=== PATIENT | female | born 1990 | race American Indian/Alaskan Native ===

== ENCOUNTER 2017-09-01 03:09 | Emergency (ER) | payer MEDICAID ==
[2017-09-01 03:31] VITALS: BP 113/64
[2017-09-01] MEDS ORDERED: MAGNESIUM SULFATE 2GM/50ML 2 GM/50 ML BAG IV ONE (03:33)
--- NOTE | 2017-09-01 05:54 | XRay Report ---
FINAL REPORT EXAM: XR CHEST ROUTINE 2V HISTORY: clinton TECHNIQUE: PA and lateral views of the chest were submitted. FINDINGS: The lungs are hyperinflated. There are no localized infiltrates or effusions. The heart size is normal. The lungs are not congested. The skeletal structures are well-maintained. IMPRESSION: Hyperinflation. No acute process in the chest.
[2017-09-01] MEDS ORDERED: XOPENEX IH ONE ×2 (06:30→06:33)
--- NOTE | 2017-09-01 06:34 | Emergency Department Report ---
ED Asthma HPI - General Chief Complaint: Dyspnea/Respdistress Stated Complaint: CLINTON Time Seen by Provider: 09/01/17 06:29 Source: patient Mode of arrival: Ambulatory Limitations: No Limitations - History of Present Illness Initial Comments: Patient is a 26-year-old female with a history of asthma who presents to ED complaining of an asthma attack that worsened earlier tonight. Patient states she's been using her inhaler and inhaled albuterol nebulizer as she is supposed to for asthma. Patient states she was home doing nothing when she got an asthma attack. Patient states she had some difficulty breathing and was wheezing. Patient states that the change in weather that caused her asthma to flareup. She denies fevers/chills/coughing/chest pain/dizziness/headache or any other problems. MD Complaint: "asthma attack", wheezing Severity: moderate Associated Symptoms: none Treatments Prior to Arrival: inhaled bronchodilator - Related Data Home Medications Medication Instructions Recorded Confirmed Last Taken Albuterol *Only Ed* [Proventil 2.5 mg IH Q4H PRN 07/17/15 08/05/15 08/04/15 0.5% NEBS] 2.5 MG Cetirizine HCl [ZyrTEC] 10 mg PO DAILY 07/17/15 08/05/15 08/04/15 10 MG Fluticasone/Salmeterol [Advair 1 puff IH BID 07/17/15 08/05/15 08/04/15 Diskus 250-50 mcg] 1 PUFF Montelukast [Singulair] 10 mg PO QPM 07/17/15 08/05/15 08/04/15 10 MG Ondansetron [Zofran ODT TAB] 4 mg PO Q8HR 07/17/15 08/05/15 08/04/15 4 MG Previous Rx's Medication Instructions Recorded Last Taken Type oxyCODONE /ACETAMINOPHEN [Percocet 1 tab PO Q6HR PRN #20 tablet 08/05/15 Unknown Rx 5/325] Ipratropium/Albuter (Nf) 2 puff IH QID #1 inha 09/01/17 Unknown Rx [Combivent Inhaler] Prednisone [predniSONE 10 mg 10 mg PO .TAPER #1 tab.ds.pk 09/01/17 Unknown Rx (6-Day Pack, 21 Tabs)] Allergies Allergy/AdvReac Type Severity Reaction Status Date / Time No Known Allergies Allergy Verified 02/25/15 23:47 ED Review of Systems ROS: Stated complaint: CLINTON Other details as noted in HPI Constitutional: denies: chills, fever Eyes: denies: eye pain, eye discharge, vision change ENT: denies: ear pain, throat pain Respiratory: denies: cough, shortness of breath, wheezing Cardiovascular: denies: chest pain, palpitations Endocrine: no symptoms reported Gastrointestinal: denies: abdominal pain, nausea, vomiting, diarrhea Genitourinary: denies: urgency, dysuria, discharge Musculoskeletal: denies: back pain, joint swelling, arthralgia Skin: denies: rash, lesions Neurological: denies: headache, weakness, paresthesias Psychiatric: denies: anxiety, depression Hematological/Lymphatic: denies: easy bleeding, easy bruising ED Past Medical Hx - Past Medical History Previous Medical History?: Yes Hx Asthma: Yes (intubated 3 times) Additional medical history: gastric ulcers as a child - Surgical History Past Surgical History?: No - Social History Smoking Status: Never Smoker Substance Use Type: Marijuana - Medications Home Medications: Home Medications Medication Instructions Recorded Confirmed Last Taken Type Albuterol *Only Ed* [Proventil 2.5 mg IH Q4H PRN 07/17/15 08/05/15 08/04/15 History 0.5% NEBS] 2.5 MG Cetirizine HCl [ZyrTEC] 10 mg PO DAILY 07/17/15 08/05/15 08/04/15 History 10 MG Fluticasone/Salmeterol [Advair 1 puff IH BID 07/17/15 08/05/15 08/04/15 History Diskus 250-50 mcg] 1 PUFF Montelukast [Singulair] 10 mg PO QPM 07/17/15 08/05/15 08/04/15 History 10 MG Ondansetron [Zofran ODT TAB] 4 mg PO Q8HR 07/17/15 08/05/15 08/04/15 History 4 MG oxyCODONE /ACETAMINOPHEN [Percocet 1 tab PO Q6HR PRN #20 tablet 08/05/15 Unknown Rx 5/325] Ipratropium/Albuter (Nf) 2 puff IH QID #1 inha 09/01/17 Unknown Rx [Combivent Inhaler] Prednisone [predniSONE 10 mg 10 mg PO .TAPER #1 tab.ds.pk 09/01/17 Unknown Rx (6-Day Pack, 21 Tabs)] ED Physical Exam - General Limitations: No Limitations General appearance: alert, in no apparent distress - Head Head exam: Present: atraumatic, normocephalic - Eye Eye exam: Present: normal appearance, PERRL, EOMI - ENT ENT exam: Present: mucous membranes moist - Neck Neck exam: Present: normal inspection - Respiratory Respiratory exam: Present: normal lung sounds bilaterally, wheezes (mild, lung bases bilat). Absent: respiratory distress, rales, rhonchi, stridor, chest wall tenderness, accessory muscle use, decreased breath sounds - Expanded Respiratory Exam Expanded Location: Wheezes: Lower, Left, Right - Cardiovascular Cardiovascular Exam: Present: regular rate, normal rhythm. Absent: systolic murmur, diastolic murmur, rubs, gallop - GI/Abdominal GI/Abdominal exam: Present: soft, normal bowel sounds. Absent: distended - Extremities Exam Extremities exam: Present: normal inspection, normal capillary refill. Absent: pedal edema, joint swelling - Back Exam Back exam: Present: normal inspection - Neurological Exam Neurological exam: Present: alert, oriented X3, CN II-XII intact - Psychiatric Psychiatric exam: Present: normal affect, normal mood - Skin Skin exam: Present: warm, dry, intact, normal color. Absent: rash ED Course Vital Signs 09/01/17 03:24 Temperature 98.2 F Pulse Rate 99 H Respiratory 20 Rate Blood Pressure 113/64 O2 Sat by Pulse 98 Oximetry ED Medical Decision Making - Radiology Data Radiology results: report reviewed, image reviewed FINAL REPORT EXAM: XR CHEST ROUTINE 2V HISTORY: clinton TECHNIQUE: PA and lateral views of the chest were submitted. FINDINGS: The lungs are hyperinflated. There are no localized infiltrates or effusions. The heart size is normal. The lungs are not congested. The skeletal structures are well-maintained. IMPRESSION: Hyperinflation. No acute process in the chest. Transcribed By: RB Dictated By: SANDI MURPHY MD Electronically Authenticated By: SANDI MURPHY MD Signed Date/Time: 09/01/17 0151 - Medical Decision Making 26-year-old female presents with asthma exacerbation. ED course: Patient received IV Solu-Medrol, mag sulfate, Xopenex respiratory breathing treatment in the ED Chest x-ray ordered. shows hyperinflation and no other acute process. Discussed findings with the patient. Discussed the patient will send her home on prednisone pack as well as ipraprotrium/albuterol Combination inhaler Vital signs are normal. Patient has no use of accessory muscles. Patient is satting 98% oxygenating on room air. She reports feeling much better onset of attack. After breathing treatment patient is resting and laying comfortably in the ED bed. She is in no respiratory distress She is neurologically intact Critical care attestation.: If time is entered above; I have spent that time in minutes in the direct care of this critically ill patient, excluding procedure time. ED Disposition Clinical Impression: Asthma attack Qualifiers: Asthma severity: moderate Asthma persistence: persistent Qualified Code(s): J45.41 - Moderate persistent asthma with (acute) exacerbation Asthma exacerbation Qualifiers: Asthma severity: moderate Asthma persistence: persistent Qualified Code(s): J45.41 - Moderate persistent asthma with (acute) exacerbation Disposition: DC-01 TO HOME OR SELFCARE Is pt being admited?: No Does the pt Need Aspirin: No Condition: Stable Instructions: Asthma (ED) Additional Instructions: Continue to use your inhalers as home as needed. You will be given prednisone in addition to prescriptions today. If she symptoms worsen or new symptoms arise please return to ED. Follow-up with your primary care physician or primary care physician as referred Prescriptions: Ipratropium/Albuter (Nf) [Combivent Inhaler] 2 puff IH QID #1 inha Prednisone [predniSONE 10 mg (6-Day Pack, 21 Tabs)] 10 mg PO .TAPER #1 tab.ds.pk Referrals: PRIMARY CAREMD [Primary Care Provider] - 3-5 Days JEANMARIE PALMER MD [Referring] - 3-5 Days [facility] [Outside] - 3-5 Days [facility] [Outside] - 3-5 Days [facility] [Outside] - 3-5 Days Forms: Accompanied Note, Work/School Release Form(ED) Time of Disposition: 06:58
== END 2017-09-01 07:09 | disposition home or self-care (01) ==
LOC: ED 03:09
DX: J45.901 Unspecified asthma with (acute) exacerbation (principal); F12.10 Cannabis abuse, uncomplicated
CPT/HCPCS: 36415; 71020; 84703; 93005; 93010; 96365; 99284; J3475

== ENCOUNTER 2018-02-13 08:15 | Emergency (ER) | payer MEDICAID ==
--- NOTE | 2018-02-13 09:15 | XRay Report ---
ROUTINE CHEST, TWO VIEWS: HISTORY: Wheezing, cough. The lungs are hyperinflated but clear. No pleural effusion or pneumothorax. Normal heart and mediastinal structures. Normal bony thorax. No change since 09/01/17. IMPRESSION: Hyperinflation.
[2018-02-13] MEDS ORDERED: MAGNESIUM SULFATE 2GM/50ML 2 GM/50 ML BAG IV ONE (09:31)
[2018-02-13] MEDS ORDERED: NACL 0.9% 1000 ML 1,000 ML IV ONE (09:32)
[2018-02-13] MEDS ORDERED: ZITHROMAX PO ONE (09:33)
[2018-02-13] MEDS ORDERED: ATROVENT IH ONE (09:36)
[2018-02-13] MEDS ORDERED: PROVENTIL IH ONE (09:36)
--- NOTE | 2018-02-13 09:36 | Emergency Department Report ---
Blank Doc - Documentation Documentation: 27-year-old patient with a history of asthma, reports history of 2 intubations, presents with shortness of breath and wheezing. Patient reports that she has been having coughing chills feeling hot and wheezing. Patient reports sometimes she requires admission for asthma exacerbation. Patient requesting IV Solu-Medrol and magnesium which works for her asthma. Chest x-ray review. Signed Medrol magnesium and DuoNeb's order for treatment. Patient transferred to Main ER.
[2018-02-13 09:57] LABS: Basophils % (Auto) 0.3 % (0.0-1.8); Eosinophils # (Auto) 0.3 K/mm3 (0.0-0.4); Eosinophils % (Auto) 2.5 % (0.0-4.3); Hemoglobin 13.3 gm/dl (10.1-14.3); Lymphocytes # (Auto) 0.9 K/mm3 (1.2-5.4); Lymphocytes % (Auto) 6.8 % (13.4-35.0); Mean Corpuscular HGB Conc 33 % (30-34); Mean Corpuscular Hemoglobin 32 pg (28-32); Mean Corpuscular Volume 95 fl (79-97); Monocytes # (Auto) 0.8 K/mm3 (0.0-0.8); Monocytes % (Auto) 5.7 % (0.0-7.3); Platelet Count 293 K/mm3 (140-440); Red Blood Count 4.21 M/mm3 (3.65-5.03); Red Cell Distribution Width 14.1 % (13.2-15.2)
[2018-02-13 10:11] LABS: BUN/Creatinine Ratio 12; Blood Urea Nitrogen 7 mg/dL (7-17); Calcium 9.2 mg/dL (8.4-10.2); Hemolysis Index 11
--- NOTE | 2018-02-13 11:03 | Emergency Department Report ---
ED Asthma HPI - General Chief Complaint: Adult Asthma Stated Complaint: ASTHMA Time Seen by Provider: 02/13/18 09:30 Source: patient Mode of arrival: Ambulatory Limitations: No Limitations - Related Data Home Medications Medication Instructions Recorded Confirmed Last Taken Cetirizine HCl [ZyrTEC] 10 mg PO DAILY 07/17/15 08/05/15 08/04/15 10 MG Ondansetron [Zofran ODT TAB] 4 mg PO Q8HR 07/17/15 08/05/15 08/04/15 4 MG Previous Rx's Medication Instructions Recorded Last Taken Type oxyCODONE /ACETAMINOPHEN [Percocet 1 tab PO Q6HR PRN #20 tablet 08/05/15 Unknown Rx 5/325] Prednisone [predniSONE 10 mg 10 mg PO .TAPER #1 tab.ds.pk 09/01/17 Unknown Rx (6-Day Pack, 21 Tabs)] Albuterol *Only Ed* [Proventil 2.5 mg IH Q4H PRN #60 nebu 02/13/18 Unknown Rx 0.5% NEBS] Albuterol Sulfate [Ventolin HFA] 2 puff IH Q4H PRN #1 hfa.aer.ad 02/13/18 Unknown Rx Azithromycin [Zithromax Z-JONATAN] 250 mg PO DAILY #6 tablet 02/13/18 Unknown Rx Fluticasone/Salmeterol [Advair 1 puff IH BID #1 blst.w.dev 02/13/18 Unknown Rx Diskus 250-50 mcg] Ipratropium/Albuter (Nf) 2 puff IH QID #60 inha 02/13/18 Unknown Rx [Combivent Inhaler] Montelukast [Singulair] 10 mg PO QPM #30 tablet 02/13/18 Unknown Rx predniSONE [Deltasone] 60 mg PO QDAY #20 tab 02/13/18 Unknown Rx traMADol [Ultram] 50 mg PO Q6HR PRN #10 tablet 02/13/18 Unknown Rx Allergies Allergy/AdvReac Type Severity Reaction Status Date / Time No Known Allergies Allergy Verified 02/13/18 08:19 ED Review of Systems ROS: Stated complaint: ASTHMA Other details as noted in HPI ED Past Medical Hx - Past Medical History Hx Asthma: Yes Additional medical history: gastric ulcers as a child - Social History Smoking Status: Never Smoker Substance Use Type: None - Medications Home Medications: Home Medications Medication Instructions Recorded Confirmed Last Taken Type Cetirizine HCl [ZyrTEC] 10 mg PO DAILY 07/17/15 08/05/15 08/04/15 History 10 MG Ondansetron [Zofran ODT TAB] 4 mg PO Q8HR 07/17/15 08/05/15 08/04/15 History 4 MG oxyCODONE /ACETAMINOPHEN [Percocet 1 tab PO Q6HR PRN #20 tablet 08/05/15 Unknown Rx 5/325] Prednisone [predniSONE 10 mg 10 mg PO .TAPER #1 tab.ds.pk 09/01/17 Unknown Rx (6-Day Pack, 21 Tabs)] Albuterol *Only Ed* [Proventil 2.5 mg IH Q4H PRN #60 nebu 02/13/18 Unknown Rx 0.5% NEBS] Albuterol Sulfate [Ventolin HFA] 2 puff IH Q4H PRN #1 hfa.aer.ad 02/13/18 Unknown Rx Azithromycin [Zithromax Z-JONATAN] 250 mg PO DAILY #6 tablet 02/13/18 Unknown Rx Fluticasone/Salmeterol [Advair 1 puff IH BID #1 blst.w.dev 02/13/18 Unknown Rx Diskus 250-50 mcg] Ipratropium/Albuter (Nf) 2 puff IH QID #60 inha 02/13/18 Unknown Rx [Combivent Inhaler] Montelukast [Singulair] 10 mg PO QPM #30 tablet 02/13/18 Unknown Rx predniSONE [Deltasone] 60 mg PO QDAY #20 tab 02/13/18 Unknown Rx traMADol [Ultram] 50 mg PO Q6HR PRN #10 tablet 02/13/18 Unknown Rx ED Physical Exam - General Limitations: No Limitations ED Course Vital Signs 02/13/18 02/13/18 02/13/18 08:19 09:32 10:00 Temperature 99.3 F Pulse Rate 94 H Respiratory 20 Rate Blood Pressure 122/62 115/71 O2 Sat by Pulse 97 95 94 Oximetry ED Medical Decision Making - Lab Data Result diagrams: 02/13/18 09:39 02/13/18 09:39 Critical care attestation.: If time is entered above; I have spent that time in minutes in the direct care of this critically ill patient, excluding procedure time. ED Disposition Clinical Impression: Acute sinusitis Exacerbation of asthma Qualifiers: Asthma severity: moderate Asthma persistence: persistent Qualified Code(s): J45.41 - Moderate persistent asthma with (acute) exacerbation Disposition: OP ADMIT IP TO THIS HOSP Is pt being admited?: No Does the pt Need Aspirin: No Condition: Stable Instructions: Asthma (ED), Sinusitis (ED) Additional Instructions: Return any acute change or worsening. Close follow-up is recommended with her primary care physician and expansion joint finisher. Prescriptions: Albuterol *Only Ed* [Proventil 0.5% NEBS] 2.5 mg IH Q4H PRN #60 nebu PRN Reason: Wheezing Albuterol Sulfate [Ventolin HFA] 2 puff IH Q4H PRN #1 hfa.aer.ad PRN Reason: Shortness Of Breath Azithromycin [Zithromax Z-JONATAN] 250 mg PO DAILY #6 tablet Fluticasone/Salmeterol [Advair Diskus 250-50 mcg] 1 puff IH BID #1 blst.w.dev Ipratropium/Albuter (Nf) [Combivent Inhaler] 2 puff IH QID #60 inha Montelukast [Singulair] 10 mg PO QPM #30 tablet predniSONE [Deltasone] 60 mg PO QDAY #20 tab traMADol [Ultram] 50 mg PO Q6HR PRN #10 tablet PRN Reason: Pain Referrals: PRIMARY CARE, [Primary Care Provider] - 3-5 Days Time of Disposition: 11:04
[2018-02-13 11:49] VITALS: BP 119/68
== END 2018-02-13 11:49 | disposition admitted as inpatient to this hospital (09) ==
LOC: ED 08:15
DX: J01.90 Acute sinusitis, unspecified (principal); J45.901 Unspecified asthma with (acute) exacerbation
CPT/HCPCS: 36415; 71046; 80048; 85025; 94640; 96365; 96375; 99284; J2930; J3475; J7030

== ENCOUNTER 2018-07-31 19:16 | Observation (INO) | payer MEDICAID ==
[2018-07-31] MEDS ORDERED: LACTATED RINGERS 500 ML IV ONE (20:04)
[2018-07-31 20:36] LABS: Bilirubin,Urine NEG (Negative); Blood,Urine NEG (Negative); Color,Urine Amber (Yellow); Mucus,Urine 3+ /HPF
[2018-07-31] MEDS ORDERED: ZOFRAN IM ONE (20:36)
[2018-07-31] MEDS ORDERED: ZOFRAN IV ONE (20:56)
[2018-07-31] MEDS ORDERED: MIRACLE MIXTURE PO ONE (21:00)
[2018-07-31 21:39] LABS: Hematocrit 33.6 % (30.3-42.9); Hemoglobin 11.1 gm/dl (10.1-14.3); Mean Corpuscular HGB Conc 33 % (30-34); Mean Corpuscular Hemoglobin 32 pg (28-32); Mean Corpuscular Volume 98 fl (79-97); Platelet Count 275 K/mm3 (140-440); Red Blood Count 3.44 M/mm3 (3.65-5.03); Red Cell Distribution Width 13.9 % (13.2-15.2)
[2018-07-31 21:45] LABS: Amphetamine Screen,Urine PRESUMPTIVE NEGATIVE; Benzodiazepines Screen,Urine PRESUMPTIVE NEGATIVE; Cocaine Screen,Urine PRESUMPTIVE NEGATIVE; Methadone Screen,Urine PRESUMPTIVE NEGATIVE; Opiate Screen,Urine PRESUMPTIVE NEGATIVE
[2018-07-31 21:55] LABS: Alanine Aminotransferase 17 units/L (7-56); Albumin 3.4 g/dL (3.9-5); BUN/Creatinine Ratio 23; Blood Urea Nitrogen 9 mg/dL (7-17); Calcium 8.6 mg/dL (8.4-10.2); Hemolysis Index 34; Lipase 17 units/L (13-60)
[2018-07-31 22:02] LABS: Cannabinoid Screen,Urine PRESUMPTIVE POSITIVE
[2018-07-31] MEDS ORDERED: TYLENOL PO PRN (22:38)
[2018-07-31] MEDS ORDERED: AMBIEN PO PRN (22:38)
[2018-07-31] MEDS ORDERED: BENADRYL PO PRN (22:38)
[2018-07-31] MEDS ORDERED: COLACE PO PRN (22:38)
[2018-07-31] MEDS ORDERED: DEEP SEA NS PRN (22:38)
[2018-07-31] MEDS: MORPHINE IV PRN (23:16)
[2018-07-31] MEDS: LACTATED RINGERS 1,000 ML IV SCH (23:19)
[2018-08-01] MEDS: LACTATED RINGERS 1,000 ML IV SCH ×2 (02:58→14:16)
[2018-08-01] MEDS: ZOFRAN IV PRN ×2 (02:58→09:26)
[2018-08-01] MEDS: MORPHINE IV PRN ×3 (04:46→14:17)
[2018-08-01] MEDS ORDERED: MIRACLE MIXTURE PO SCH (08:00)
--- NOTE | 2018-08-01 09:47 | Ultrasound Report ---
ULTRASOUND ABDOMEN LIMITED: TECHNIQUE: Transabdominal ultrasound with color Doppler interrogation. HISTORY: right upper quadrant abdominal pain. COMPARISON: none. FINDINGS: LIVER: Normal. BILIARY SYSTEM: Normal. PANCREAS: Normal. RIGHT KIDNEY: The right kidney is normal size and contour. There is increased renal cortical echotexture consistent with nonspecific renal parenchymal disease. No focal renal lesion or hydronephrosis. PROXIMAL AORTA: Normal. ASCITES: None. IMPRESSION: Nonspecific renal parenchymal disease as described. Otherwise, unremarkable exam of the right upper quadrant.
[2018-08-01] MEDS ORDERED: PRENATAL VITAMIN PO SCH (10:00)
--- NOTE | 2018-08-01 12:49 | History and Physical Report ---
History of Present Illness Date of examination: 08/01/18 Date of admission: 07/31/18 22:52 Chief complaint: abdominal pain, nausea, vomiting 21 weeks History of present illness: This is a 27 yo G P at 21 weeks EDC here for long hx of abdominal pain/ upper. She reports nausea and vomiting 2x yesterday. She has been worked up in the past not in . She reports vomiting x2 and this episode of pain in this started 3 days. Past History Past Medical History: asthma Past Surgical History: no surgical history Family/Genetic History: diabetes, cancer Social history: single, smoking, other (marijuana). denies: alcohol abuse - Obstetrical History Expected Date of Delivery: 12/07/18 Actual Gestation: 21 Week(s) 5 Day(s) : 3 Para: 1 Hx # Term Pregnancies: 0 Number of Pregnancies: 1 Spontaneous Abortions: 0 Induced : 1 Number of Living Children: 1 Medications and Allergies Allergies Allergy/AdvReac Type Severity Reaction Status Date / Time No Known Allergies Allergy Verified 02/13/18 08:19 Home Medications Medication Instructions Recorded Confirmed Last Taken Type Doxylamine Succinate/Vit B6 1 tab PO PRN 07/31/18 07/31/18 2 Days Ago History [Diclegis Dr 10-10 mg Tablet] ~07/29/18 Promethazine 1 tab PO PRN 07/31/18 07/31/18 2 Days Ago History ~07/29/18 Active Meds: Active Medications Acetaminophen (Tylenol) 650 mg PO Q4H PRN PRN Reason: Pain MILD(1-3)/Fever >100.5/JAQUEZ Diphenhydramine HCl (Benadryl) 25 mg PO Q6H PRN PRN Reason: Itching Docusate Sodium (Colace) 100 mg PO Q12H PRN PRN Reason: Constipation Lactated Ringer's (Lactated Ringers) 1,000 mls @ 125 mls/hr IV DIRECT ELIZ Last Admin: 08/01/18 02:58 Dose: 125 mls/hr Lidocaine HCl (Miracle Mixture) 15 ml PO TID ELIZ Last Admin: 08/01/18 11:13 Dose: 15 ml Morphine Sulfate (Morphine) 2 mg IV Q4H PRN PRN Reason: Pain, Moderate (4-6) Last Admin: 08/01/18 09:26 Dose: 2 mg Multivitamins/Iron/Calcium ( Vitamin) 1 each PO QDAY ELIZ Ondansetron HCl (Zofran) 4 mg IV Q6H PRN PRN Reason: Nausea And Vomiting Last Admin: 08/01/18 09:26 Dose: 4 mg Sodium Chloride (Deep Sea) 2 spray NS Q4H PRN PRN Reason: Congestion Zolpidem Tartrate (Ambien) 10 mg PO QHS PRN PRN Reason: Sleep Last Admin: 07/31/18 23:19 Dose: 10 mg Review of Systems All systems: negative Gastrointestinal: abdominal pain, nausea, vomiting - Vital Signs Vital signs: Vital Signs Temp Pulse Resp BP 98.1 F 83 19 104/65 07/31/18 19:44 07/31/18 19:44 07/31/18 19:44 07/31/18 19:44 Temp Pulse Resp BP Pulse Ox 97.7 F 50 L 16 98/51 99 08/01/18 11:35 08/01/18 11:35 08/01/18 11:35 08/01/18 11:35 08/01/18 04:50 - Physical Exam Breasts: Positive: normal Cardiovascular: Regular rate, Normal S1 Lungs: Positive: Clear to auscultation, Normal air movement Abdomen: Positive: normal appearance, soft, normal bowel sounds. Negative: distention, tenderness, guarding Genitourinary (Female): Positive: normal external genitalia, normal perenium Vulva: both: normal Uterus: Positive: normal size, normal contour Anus/Rectum: Positive: normal perianal skin Extremities: Positive: normal Deep Tendon Reflex Grade: Normal +2 - Obstetrical FHR: auscultation normal Results Result Diagrams: 07/31/18 20:55 07/31/18 20:55 Abnormal lab results 07/31/18 07/31/18 Range/Units 20:55 20:55 WBC 15.5 H (4.5-11.0) K/mm3 RBC 3.44 L (3.65-5.03) M/mm3 MCV 98 H (79-97) fl Carbon Dioxide 20 L (22-30) mmol/L Creatinine 0.4 L (0.7-1.2) mg/dL Albumin 3.4 L (3.9-5) g/dL All other labs normal. Assessment and Plan A/P IUP 21 weeks abdominal pain nausea and vomiting GI consult US neg await GI consult to continue care and treatment
--- NOTE | 2018-08-01 15:07 | Consultation ---
History of Present Illness - Reason for Consult Consult date: 08/01/18 Abd pain, N/V Requesting physician: ESTER UPTON - History of Present Illness Miss Qureshi is a 27-year-old woman who is 21 weeks and was admitted for abdominal pain. Patient relates a history of problems with epigastric sharp stabbing cramping pain for over 3 years associated with nausea vomiting. These had been intermittent with no clear precipitants. She states she was evaluated at [facility] in 2014 and told she may have had a delayed gastric emptying. However, no further diagnosis was given and there was no specific treatment that helped her with the symptoms. Since her , patient states that symptoms have been occurring on a daily basis and are worse in the morning. There is no clear association with by mouth intake. She has lost about 3 pounds during the course of her . She has nausea and vomiting along with the pain. Her bowel movements are regular on a daily to twice a day basis without any change though occasionally she has seen mucus. There's been no evidence of GI bleeding. There's been no fevers chills or sweats. She denies abdominal bloating or swelling. Patient smokes marijuana up to 1-3 times a day. She states she tried stopping it without any relief. She also states that she has been tried on Pepcid without any relief. Promethazine has been ineffective. Past History Past Medical History: other (Asthma, requiring intubation x 2 in the past) Past Surgical History: Other (Per OB note) Social history: single, smoking (Marijuana) Family history: no significant family history Medications and Allergies Allergies Allergy/AdvReac Type Severity Reaction Status Date / Time No Known Allergies Allergy Verified 02/13/18 08:19 Home Medications Medication Instructions Recorded Confirmed Last Taken Type Doxylamine Succinate/Vit B6 1 tab PO PRN 07/31/18 07/31/18 2 Days Ago History [Celestinos Dr 10-10 mg Tablet] ~07/29/18 Promethazine 1 tab PO PRN 07/31/18 07/31/18 2 Days Ago History ~07/29/18 Active Meds: Active Medications Acetaminophen (Tylenol) 650 mg PO Q4H PRN PRN Reason: Pain MILD(1-3)/Fever >100.5/JAQUEZ Diphenhydramine HCl (Benadryl) 25 mg PO Q6H PRN PRN Reason: Itching Docusate Sodium (Colace) 100 mg PO Q12H PRN PRN Reason: Constipation Lactated Ringer's (Lactated Ringers) 1,000 mls @ 125 mls/hr IV DIRECT ELIZ Last Admin: 08/01/18 14:16 Dose: 125 mls/hr Lidocaine HCl (Miracle Mixture) 15 ml PO TID [facility] Last Admin: 08/01/18 11:13 Dose: 15 ml Morphine Sulfate (Morphine) 2 mg IV Q4H PRN PRN Reason: Pain, Moderate (4-6) Last Admin: 08/01/18 14:17 Dose: 2 mg Multivitamins/Iron/Calcium ( Vitamin) 1 each PO QDAY [facility] Ondansetron HCl (Zofran) 4 mg IV Q6H PRN PRN Reason: Nausea And Vomiting Last Admin: 08/01/18 09:26 Dose: 4 mg Sodium Chloride (Deep Sea) 2 spray NS Q4H PRN PRN Reason: Congestion Zolpidem Tartrate (Ambien) 10 mg PO QHS PRN PRN Reason: Sleep Last Admin: 07/31/18 23:19 Dose: 10 mg Review of Systems All systems: negative (as noted in HPI) Exam - Constitutional Vitals: Temp Pulse Resp BP Pulse Ox 97.7 F 50 L 16 98/51 99 08/01/18 11:35 08/01/18 11:35 08/01/18 11:35 08/01/18 11:35 08/01/18 04:50 General appearance: Present: no acute distress, other (tattooed) - EENT Eyes: Present: PERRL, EOM intact ENT: hearing intact - Respiratory Respiratory effort: normal Respiratory: bilateral: CTA - Cardiovascular Rhythm: regular Heart Sounds: Present: S1 & S2 - Abdominal General gastrointestinal: Present: soft, non-tender, normal bowel sounds, other (Fullness in suprapubic region c/w gravid state) - Rectal Rectal Exam: deferred Results - Labs CBC & Chem 7: 07/31/18 20:55 07/31/18 20:55 Labs: Abnormal lab results 07/31/18 07/31/18 Range/Units 20:55 20:55 WBC 15.5 H (4.5-11.0) K/mm3 RBC 3.44 L (3.65-5.03) M/mm3 MCV 98 H (79-97) fl Carbon Dioxide 20 L (22-30) mmol/L Creatinine 0.4 L (0.7-1.2) mg/dL Albumin 3.4 L (3.9-5) g/dL - Imaging and Cardiology US - abdomen: report reviewed (No gallstones) Assessment and Plan 1. Epigastric pain, N/V - etiology unclear. Symptoms long-standing, and, according to the patient, worse during . These may well represent biliary colic, or a functional disturbance. Given the negative ultrasound, HIDA scan with CCK would be the next appropriate step, but is contraindicated in the setting of due to the need for radionuclide usage. Peptic ulcer disease is a consideration but less likely, especially given that Pepcid did not help. I would treat her at present for a functional disturbance, possibly using Ativan. Once the is completed, further evaluation can then be pursued including HIDA scan and possible EGD. Also, I would consider use of narrow modulators such as tricyclic anti-depressed at that point in time. - Would recommend low dose Ativan at 0.5 mg by mouth twice a day if okay by OB. - Consider ongoing empiric acid suppression. - HIDA scan with CCK upon completion of the . - If warranted, may need to provide parenteral nutrition until completion of . Please call if I can be of further assistance.
--- NOTE | 2018-08-01 17:27 | Event Note ---
Date: 08/01/18 patient feels better slightly. Spoke with Dr. Farley and he recommneded nortrytiline and or ativan. I would not recommnede as this medication is a cat D. I spok with patient and plan is to set up home health with possible parenteral nutrition vs IV meds of zofran. she will be sent home with few tabs of norco for pain and zofran.
--- NOTE | 2018-08-01 17:31 | Discharge Summary ---
Providers - Providers Date of Admission: 07/31/18 22:52 Date of discharge: 08/01/18 Attending physician: JANA KNAPP 07/31/18 22:38 Consult to Dietitian/Nutrition [CONS] Routine Physician Instructions: Reason For Exam: Reason for Consult: nausea, vomiting, pregn 08/01/18 09:07 Consult to Physician [CONS] Urgent Comment: Consulting Provider: YULIA HOLLY Physician Instructions: Reason For Exam: IUp 21 weeks abdominal pain Primary care physician: JANA KNAPP Hospitalization Reason for admission: other (abdominal pain and nausea and vomiting ) Hospital course: patient was givne IV and pain meds consistent with morphine. She had US neg. She was seen by GI taran and GI dx with functional issue. GI recommneded f/u. parenental nutrition to be arranged on outpatient with home health. Discharged home with zofran and norco Condition at discharge: Good Disposition: DC-[id number] TO HOME OR SELFCARE Plan - Discharge Medications Prescriptions: HYDROcodone/APAP 5-325 [[place] 5/325] 1 each PO Q6HR PRN #5 tablet PRN Reason: Pain Ondansetron [Zofran ODT TAB] 8 mg PO Q12HR #20 tab.rapdis - Provider Discharge Summary Additional instructions: [] Smoking cessation referral if applicable(refer to patient education folder for contact #) [] Refer to [facility] Booklet Call your doctor immediately for: * Fever > 100.5 * Heavy vaginal bleeding ( >1 pad per hour) * Severe persistent headache * Shortness of breath * Reddened, hot, painful area to leg or breast * Drainage or odor from incision. * Keep incision clean and dry at all times and follow doctor's instructions regarding bathing/showering - Follow up plan Follow up: JANA KNAPP MD [Primary Care Provider] - 7 Days
[2018-08-01 17:55] VITALS: BP 101/63
== END 2018-08-01 19:55 | disposition home or self-care (01) ==
LOC: TRG 19:16 → LD 22:52
PROVIDERS: ADMIT Obstetrics & Gynecology; ATTEND Obstetrics & Gynecology
DX: O21.2 Late vomiting of pregnancy (principal); O26.892 Other specified pregnancy related conditions, second trimester; R10.9 Unspecified abdominal pain; Z3A.21 21 weeks gestation of pregnancy
CPT/HCPCS: 36415; 76705; 80053; 80307; 81001; 82150; 83690; 85027; 96360; 96374; G0378; J2270; J2405; J7120; 59025

== ENCOUNTER 2018-10-19 20:46 | Inpatient (IN) | payer MEDICAID ==
[2018-10-19] MEDS ORDERED: LACTATED RINGERS 1,000 ML IV ONE ×2 (22:01→22:46)
[2018-10-19] MEDS ORDERED: TYLENOL PO ONE (22:02)
[2018-10-19 22:54] LABS: Hematocrit 27.8 % (30.3-42.9); Hemoglobin 9.6 gm/dl (10.1-14.3); Mean Corpuscular HGB Conc 35 % (30-34); Mean Corpuscular Volume 88 fl (79-97); Platelet Count 229 K/mm3 (140-440); Red Blood Count 3.16 M/mm3 (3.65-5.03); Red Cell Distribution Width 14.1 % (13.2-15.2)
[2018-10-19 23:00] LABS: Bacteria,Urine 1+ /HPF (Negative); Bilirubin,Urine NEG (Negative); Blood,Urine NEG (Negative); Color,Urine Amber (Yellow); Mucus,Urine 1+ /HPF
[2018-10-19] MEDS ORDERED: DUONEB *Not for PRN Use IH ONE (23:56)
[2018-10-20 01:05] LABS: Alanine Aminotransferase 54 units/L (7-56); Albumin 3.2 g/dL (3.9-5); BUN/Creatinine Ratio 10; Blood Urea Nitrogen 6 mg/dL (7-17); Calcium 8.2 mg/dL (8.4-10.2); Hemolysis Index 8
[2018-10-20 03:15] LABS: Band Neutrophils # (Manual) 0.6 K/mm3; Basophils % (Manual) 0 % (0.0-1.8); Eosinophils % (Manual) 0 % (0.0-4.3); Total Cells Counted 100
[2018-10-20 03:16] LABS: Anisocytosis 1+
[2018-10-20] MEDS ORDERED: KCL 30 MEQ in NACL 0.9% 1000 ML 1,000 ML IV SCH (03:45)
[2018-10-20] MEDS: DUONEB *Not for PRN Use IH ONE ×2 (04:38→06:06)
[2018-10-20] MEDS ORDERED: XOPENEX IH PRN ×2 (04:45→04:47)
[2018-10-20] MEDS: XOPENEX IH SCH ×4 (05:07→21:19)
[2018-10-20] MEDS ORDERED: TYLENOL PO ONE (05:28)
[2018-10-20] MEDS ORDERED: TYLENOL PO PRN (09:34)
--- NOTE | 2018-10-20 09:40 | History and Physical Report ---
History of Present Illness Date of examination: 10/20/18 Date of admission: 10/20/18 04:27 Chief complaint: cough with fever History of present illness: 28y/o @ 33+0 weeks presents to triage with complaints of persistent cough with productive sputum. The patient also reports having an elevated temperature at home. The patient's course is significant for history of asthma and a prior intubation in the past. The patient was recently treated for a dental abscess which she is currently taking by mouth clindamycin. The patient states that she is experiencing fevers and chills. A rapid influenza testing was performed in triage was negative. Breathing treatment was administered in triage without significant improvement in symptoms. Past History Past Medical History: asthma, other (dental abscess) - Obstetrical History : 3 Medications and Allergies Allergies Allergy/AdvReac Type Severity Reaction Status Date / Time No Known Allergies Allergy Verified 02/13/18 08:19 Home Medications Medication Instructions Recorded Confirmed Last Taken Type Doxylamine Succinate/Vit B6 1 tab PO PRN 07/31/18 07/31/18 2 Days Ago History [Diclegis Dr 10-10 mg Tablet] ~07/29/18 Promethazine 1 tab PO PRN 07/31/18 07/31/18 2 Days Ago History ~07/29/18 HYDROcodone/APAP 5-325 [[place] 1 each PO Q6HR PRN #5 tablet 08/01/18 Unknown Rx 5/325] Ondansetron [Zofran ODT TAB] 8 mg PO Q12HR #20 tab.rapdis 08/01/18 Unknown Rx Ondansetron (Nf) [Zofran TAB] 8 mg PO Q8HR PRN #30 tablet 10/07/18 Unknown Rx Acetaminophen/Codeine [Tylenol 1 tab PO Q6H PRN #12 tab 10/16/18 Unknown Rx /Codeine # 3 tab] RX: Clindamycin [Clindamycin CAP] 300 mg PO Q8H 10 Days #30 cap 10/16/18 Unknown Rx Active Meds: Active Medications Acetaminophen (Tylenol) 650 mg PO Q4H PRN PRN Reason: Pain MILD(1-3)/Fever >100.5/JAQUEZ Acetaminophen/Hydrocodone Bitart ([place] 5/325) 2 each PO Q6H PRN PRN Reason: Pain, Moderate (4-6) Clindamycin HCl (Cleocin) 300 mg PO TID ELIZ Docusate Sodium (Colace) 100 mg PO Q12H PRN PRN Reason: Constipation Potassium Chloride 30 meq/ (Sodium Chloride) 1,015 mls @ 75 mls/hr IV DIRECT ELIZ Last Admin: 10/20/18 05:48 Dose: 75 mls/hr Documented by: Dextrose/Lactated Ringer's (D5lr) 1,000 mls @ 125 mls/hr IV DIRECT ELIZ Levalbuterol HCl (Xopenex) 0.63 mg IH Q8HRT [facility] Last Admin: 10/20/18 05:07 Dose: 0.63 mg Documented by: Multivitamins/Iron/Calcium ( Vitamin) 1 each PO QDAY [facility] Review of Systems All systems: negative Respiratory: cough, cough with sputum, shortness of breath, congestion, wheezing - Vital Signs Vital signs: Vital Signs Pulse BP 127 H 102/52 10/19/18 22:16 10/19/18 22:16 Temp Pulse Resp BP Pulse Ox 97.6 F 122 H 20 100/50 97 10/20/18 08:47 10/20/18 09:36 10/20/18 09:05 10/20/18 08:11 10/20/18 09:36 - Physical Exam Breasts: Positive: deferred Cardiovascular: Regular rate Lungs: Positive: Other (wheezing) Abdomen: Positive: normal appearance Results Result Diagrams: 10/19/18 22:15 10/19/18 22:15 Abnormal lab results 10/19/18 10/19/18 10/19/18 Range/Units 22:15 22:15 22:15 RBC 3.16 L (3.65-5.03) M/mm3 Hgb 9.6 L (10.1-14.3) gm/dl Hct 27.8 L (30.3-42.9) % MCHC 35 H (30-34) % Seg Neuts % (Manual) 86.0 H (40.0-70.0) % Lymphocytes % (Manual) 3.0 L (13.4-35.0) % Nucleated RBC % 2.0 H (0.0-0.9) % Seg Neutrophils # Man 9.5 H (1.8-7.7) K/mm3 Lymphocytes # (Manual) 0.3 L (1.2-5.4) K/mm3 Sodium 132 L (137-145) mmol/L Potassium 3.1 L (3.6-5.0) mmol/L Chloride 96.9 L (98-107) mmol/L Carbon Dioxide 20 L (22-30) mmol/L BUN 6 L (7-17) mg/dL Creatinine 0.6 L (0.7-1.2) mg/dL Calcium 8.2 L (8.4-10.2) mg/dL AST 46 H (5-40) units/L Alkaline Phosphatase 159 H (35-129) units/L Total Protein 5.8 L (6.3-8.2) g/dL Albumin 3.2 L (3.9-5) g/dL U Epithel Cells (Auto) 16.0 H (0-13.0) /HPF All other labs normal. Assessment and Plan - Patient Problems (1) Acute asthma exacerbation Current Visit: Yes Status: Acute Plan to address problem: Patient will be admitted for management of her asthma IV potassium replacement will also be administered for hypokalemia Hospitalist will be consulted for management of the patient's asthma exacerbation (2) Tooth abscess Current Visit: No Status: Acute
[2018-10-20] MEDS ORDERED: COLACE PO PRN (10:00)
[2018-10-20] MEDS: CLEOCIN PO SCH ×2 (10:30→18:07)
[2018-10-20] MEDS: PRENATAL VITAMIN PO SCH (10:31)
[2018-10-20] MEDS: NORCO 5/325 PO PRN ×2 (10:31→18:06)
[2018-10-20] MEDS ORDERED: MAGNESIUM SULFATE 1 GM in NACL 0.9% 50 ML IV ONE (11:25)
[2018-10-20] MEDS ORDERED: SOLU-Medrol IV ONE (11:26)
--- NOTE | 2018-10-20 11:28 | Consultation ---
History of Present Illness - Reason for Consult Consult date: 10/20/18 Requesting physician: JACQUES LERMA - History of Present Illness 28 YO Female with Mild Intermittent Asthma at [address]estation[address] by Dr[address] Lerma for evaluation of Asthma. Pt states that she has experienced fever, chills over the past 2 days. Pt seen and evaluated in her room and found to have Asthma Exacerbation. Pt treated with IV steroid therapy, nebulizer therapy, as well as magnesium sulfate. No reports of CP, Palpitations, NVD, Unilateral leg swelling, Calf Pain, Syncope, skin rash, or recent ill contacts. Past History Past Medical History: other (Asthma) Past Surgical History: No surgical history (reviewed) Social history: single. denies: smoking, alcohol abuse, prescription drug abuse Family history: no significant family history (reviewed) Medications and Allergies Allergies Allergy/AdvReac Type Severity Reaction Status Date / Time No Known Allergies Allergy Verified 02/13/18 08:19 Home Medications Medication Instructions Recorded Confirmed Last Taken Type Doxylamine Succinate/Vit B6 1 tab PO PRN 07/31/18 07/31/18 2 Days Ago History [Diclegis Dr 10-10 mg Tablet] ~07/29/18 Promethazine 1 tab PO PRN 07/31/18 07/31/18 2 Days Ago History ~07/29/18 HYDROcodone/APAP 5-325 [[place] 1 each PO Q6HR PRN #5 tablet 08/01/18 Unknown Rx 5/325] Ondansetron [Zofran ODT TAB] 8 mg PO Q12HR #20 tab.rapdis 08/01/18 Unknown Rx Ondansetron (Nf) [Zofran TAB] 8 mg PO Q8HR PRN #30 tablet 10/07/18 Unknown Rx Acetaminophen/Codeine [Tylenol 1 tab PO Q6H PRN #12 tab 10/16/18 Unknown Rx /Codeine # 3 tab] Clindamycin [Clindamycin CAP] 300 mg PO Q8H 10 Days #30 cap 10/16/18 Unknown Rx Active Meds: Active Medications Acetaminophen (Tylenol) 650 mg PO Q4H PRN PRN Reason: Pain MILD(1-3)/Fever >100.5/JAQUEZ Acetaminophen/Hydrocodone Bitart ([place] 5/325) 2 each PO Q6H PRN PRN Reason: Pain, Moderate (4-6) Last Admin: 10/20/18 10:31 Dose: 2 each Documented by: Clindamycin HCl (Cleocin) 300 mg PO TID [facility] Last Admin: 10/20/18 10:30 Dose: 300 mg Documented by: Docusate Sodium (Colace) 100 mg PO Q12H PRN PRN Reason: Constipation Potassium Chloride 30 meq/ (Sodium Chloride) 1,015 mls @ 75 mls/hr IV DIRECT [facility] Last Admin: 10/20/18 05:48 Dose: 75 mls/hr Documented by: Dextrose/Lactated Ringer's (D5lr) 1,000 mls @ 125 mls/hr IV DIRECT ELIZ Magnesium Sulfate 1 gm/ Sodium (Chloride) 52 mls @ 52 mls/hr IV ONCE ONE Stop: 10/20/18 12:24 Levalbuterol HCl (Xopenex) 0.63 mg IH Q8HRT [facility] Last Admin: 10/20/18 05:07 Dose: 0.63 mg Documented by: Methylprednisolone Sodium Succinate (Solu-Medrol) 125 mg IV ONCE ONE Stop: 10/20/18 11:27 Multivitamins/Iron/Calcium ( Vitamin) 1 each PO QDAY [facility] Last Admin: 10/20/18 10:31 Dose: Not Given Documented by: Review of Systems Constitutional: fever, no weight loss, no weight gain, no chills, no sweats Ears, nose, mouth and throat: no ear pain, no ear discharge, no tinnitis, no decreased hearing, no nose pain, no nasal congestion Breasts: no change in shape, no swelling, no mass Cardiovascular: no chest pain, no orthopnea, no palpitations, no rapid/irregular heart beat, no edema Respiratory: cough, cough with sputum, shortness of breath, wheezing, no excessive sputum, no hemoptysis, no pleurisy, no pain, no pain on inspiration Gastrointestinal: no nausea, no vomiting, no diarrhea, no constipation Genitourinary Female: no pelvic pain, no flank pain, no menorrhagia Rectal: no pain, no incontinence, no bleeding Musculoskeletal: no neck pain, no shooting arm pain, no arm numbness/tingling, no low back pain, no shooting leg pain Integumentary: no rash, no pruritis, no redness, no sores, no wounds Neurological: no paralysis, no weakness, no parathesias, no numbness, no tingling Psychiatric: no anxiety, no memory loss, no change in sleep habits, no sleep disturbances, no insomnia Endocrine: no cold intolerance, no heat intolerance, no polyphagia, no excessive thirst, no polydipsia, no polyuria Hematologic/Lymphatic: no easy bruising, no easy bleeding, no lymphadenopathy, no lymphedema Allergic/Immunologic: no urticaria, no allergic rhinitis, no wheezing Exam - Constitutional Vitals: Temp Pulse Resp BP Pulse Ox 97.6 F 118 H 20 134/70 95 10/20/18 08:47 10/20/18 11:22 10/20/18 09:05 10/20/18 11:21 10/20/18 11:22 General appearance: Present: mild distress - EENT Eyes: Present: PERRL ENT: hearing intact, clear oral mucosa - Neck Neck: Present: supple, normal ROM - Respiratory Respiratory effort: labored Respiratory: bilateral: diminished, wheezing - Cardiovascular Rhythm: other (tachycardia) Heart Sounds: Present: S1 & S2. Absent: rub, click - Extremities Extremities: pulses symmetrical, No edema Peripheral Pulses: within normal limits - Abdominal General gastrointestinal: Present: soft, non-tender, non-distended, normal bowel sounds Female genitourinary: Present: normal - Integumentary Integumentary: Present: clear, warm, dry - Musculoskeletal Musculoskeletal: gait normal, strength equal bilaterally - Psychiatric Psychiatric: appropriate mood/affect, intact judgment & insight - Neurologic Neurologic: CNII-XII intact, moves all extremities Results - Labs CBC & Chem 7: 10/19/18 22:15 10/19/18 22:15 Labs: Abnormal lab results 10/19/18 10/19/18 10/19/18 Range/Units 22:15 22:15 22:15 RBC 3.16 L (3.65-5.03) M/mm3 Hgb 9.6 L (10.1-14.3) gm/dl Hct 27.8 L (30.3-42.9) % MCHC 35 H (30-34) % Seg Neuts % (Manual) 86.0 H (40.0-70.0) % Lymphocytes % (Manual) 3.0 L (13.4-35.0) % Nucleated RBC % 2.0 H (0.0-0.9) % Seg Neutrophils # Man 9.5 H (1.8-7.7) K/mm3 Lymphocytes # (Manual) 0.3 L (1.2-5.4) K/mm3 D-Dimer (0-234) ng/mlDDU POC ABG pH (7.35-7.45) POC ABG pCO2 (35-45) POC ABG pO2 (80-105) Sodium 132 L (137-145) mmol/L Potassium 3.1 L (3.6-5.0) mmol/L Chloride 96.9 L (98-107) mmol/L Carbon Dioxide 20 L (22-30) mmol/L BUN 6 L (7-17) mg/dL Creatinine 0.6 L (0.7-1.2) mg/dL Calcium 8.2 L (8.4-10.2) mg/dL AST 46 H (5-40) units/L Alkaline Phosphatase 159 H (35-129) units/L Total Protein 5.8 L (6.3-8.2) g/dL Albumin 3.2 L (3.9-5) g/dL U Epithel Cells (Auto) 16.0 H (0-13.0) /HPF 10/20/18 10/20/18 Range/Units 10:45 10:57 RBC (3.65-5.03) M/mm3 Hgb (10.1-14.3) gm/dl Hct (30.3-42.9) % MCHC (30-34) % Seg Neuts % (Manual) (40.0-70.0) % Lymphocytes % (Manual) (13.4-35.0) % Nucleated RBC % (0.0-0.9) % Seg Neutrophils # Man (1.8-7.7) K/mm3 Lymphocytes # (Manual) (1.2-5.4) K/mm3 D-Dimer 850.67 H (0-234) ng/mlDDU POC ABG pH 7.451 H (7.35-7.45) POC ABG pCO2 25.8 L (35-45) POC ABG pO2 65 L (80-105) Sodium (137-145) mmol/L Potassium (3.6-5.0) mmol/L Chloride (98-107) mmol/L Carbon Dioxide (22-30) mmol/L BUN (7-17) mg/dL Creatinine (0.7-1.2) mg/dL Calcium (8.4-10.2) mg/dL AST (5-40) units/L Alkaline Phosphatase (35-129) units/L Total Protein (6.3-8.2) g/dL Albumin (3.9-5) g/dL U Epithel Cells (Auto) (0-13.0) /HPF Assessment and Plan - Patient Problems (1) Acute asthma exacerbation Current Visit: Yes Status: Acute Qualifiers: Asthma severity: moderate Asthma persistence: persistent Qualified Code(s): J45.41 - Moderate persistent asthma with (acute) exacerbation Plan to address problem: IV steroid therpay, Magnesium sulfate, nebulizer therpay, supplemental oxygen. (2) Respiratory failure Current Visit: Yes Status: Acute Qualifiers: Chronicity: acute Respiratory failure complication: hypoxia Qualified Code(s): J96.01 - Acute respiratory failure with hypoxia Plan to address problem: Chest x ray, D dimer, BLE duplex, supplemental oxygen, pulse oximetry, nebulizer therapy, NIPPV as clinically indicated, ABG (3) DVT prophylaxis Current Visit: Yes Status: Acute Plan to address problem: SCD to BLE while in bed
[2018-10-20] MEDS ORDERED: XOPENEX IH ONE (13:08)
[2018-10-20] MEDS ORDERED: ZOFRAN IM ONE (13:56)
[2018-10-20] MEDS ORDERED: ZOFRAN IV ONE (14:20)
--- NOTE | 2018-10-20 15:34 | XRay Report ---
FINAL REPORT EXAM: XR CHEST 1V AP HISTORY: shortness of breath TECHNIQUE: Frontal chest radiograph. PRIORS: 09/01/2017. FINDINGS: The cardiomediastinal silhouette is normal. No focal consolidation. No pleural effusion. No pneumothorax. No acute osseous abnormality. IMPRESSION: No acute cardiopulmonary process.
[2018-10-20] MEDS ORDERED: ATIVAN IV STA (17:17)
--- NOTE | 2018-10-20 18:56 | History and Physical Report ---
History of Present Illness Date of admission: 10/20/18 04:27 Chief complaint: I cant breathe History of present illness: 28 YO Female with Mild Intermittent Asthma at 33 weeks Gestation. Pt states that she has experienced fever, chills over the past 2 days. Pt seen and evaluated in her room and found to have Asthma Exacerbation. Pt treated with IV steroid therapy, nebulizer therapy, as well as magnesium sulfate. No reports of CP, Palpitations, NVD, Unilateral leg swelling, Calf Pain, Syncope, skin rash, or recent ill contacts. Pt reevaluated and found to have Status asthmaticus. Pt ca re transferred to Hospital Medicine service. Pt transferred to [facility]. [facility] [employer] service consulted. Past History Past Medical History: other (Asthma) Past Surgical History: No surgical history (reviewed) Social history: single. denies: smoking, alcohol abuse, prescription drug abuse Family history: no significant family history (reviewed) Medications and Allergies Allergies Allergy/AdvReac Type Severity Reaction Status Date / Time No Known Allergies Allergy Verified 02/13/18 08:19 Home Medications Medication Instructions Recorded Confirmed Last Taken Type Doxylamine Succinate/Vit B6 1 tab PO PRN 07/31/18 07/31/18 2 Days Ago History [Diclegis Dr 10-10 mg Tablet] ~07/29/18 Promethazine 1 tab PO PRN 07/31/18 07/31/18 2 Days Ago History ~07/29/18 HYDROcodone/APAP 5-325 [[place] 1 each PO Q6HR PRN #5 tablet 08/01/18 Unknown Rx 5/325] Ondansetron [Zofran ODT TAB] 8 mg PO Q12HR #20 tab.rapdis 08/01/18 Unknown Rx Ondansetron (Nf) [Zofran TAB] 8 mg PO Q8HR PRN #30 tablet 10/07/18 Unknown Rx Acetaminophen/Codeine [Tylenol 1 tab PO Q6H PRN #12 tab 10/16/18 Unknown Rx /Codeine # 3 tab] Clindamycin [Clindamycin CAP] 300 mg PO Q8H 10 Days #30 cap 10/16/18 Unknown Rx Active Meds: Active Medications Acetaminophen (Tylenol) 650 mg PO Q4H PRN PRN Reason: Pain MILD(1-3)/Fever >100.5/JAQUEZ Acetaminophen/Hydrocodone Bitart ([place] 5/325) 2 each PO Q6H PRN PRN Reason: Pain, Moderate (4-6) Last Admin: 10/20/18 18:06 Dose: 2 each Documented by: Clindamycin HCl (Cleocin) 300 mg PO TID [facility] Last Admin: 10/20/18 18:07 Dose: 300 mg Documented by: Docusate Sodium (Colace) 100 mg PO Q12H PRN PRN Reason: Constipation Potassium Chloride 30 meq/ (Sodium Chloride) 1,015 mls @ 75 mls/hr IV DIRECT ELIZ Last Admin: 10/20/18 05:48 Dose: 75 mls/hr Documented by: Dextrose/Lactated Ringer's (D5lr) 1,000 mls @ 125 mls/hr IV DIRECT [facility] Magnesium Sulfate 1 gm/ ([place]) 25 mls @ 25 mls/hr IV ONCE ONE Stop: 10/20/18 21:29 Levalbuterol HCl (Xopenex) 0.63 mg IH Q8HRT [facility] Last Admin: 10/20/18 13:05 Dose: 0.63 mg Documented by: Methylprednisolone Sodium Succinate (Solu-Medrol) 40 mg IV Q12HR [facility] Multivitamins/Iron/Calcium ( Vitamin) 1 each PO QDAY [facility] Last Admin: 10/20/18 10:31 Dose: Not Given Documented by: Review of Systems Constitutional: fever, no weight loss, no weight gain, no chills Ears, nose, mouth and throat: no ear pain, no ear discharge, no tinnitis, no decreased hearing, no nose pain, no nasal congestion, no nasal discharge Breasts: no swelling, no mass Cardiovascular: no chest pain, no orthopnea, no palpitations Respiratory: cough, shortness of breath Gastrointestinal: no nausea, no constipation, no change in bowel habits Genitourinary Female: no pelvic pain, no flank pain, no menorrhagia, no dysuria, no urinary frequency, no urgency Rectal: no pain, no incontinence, no bleeding Musculoskeletal: no neck stiffness, no neck pain, no shooting arm pain, no low back pain Integumentary: no rash, no pruritis, no redness, no sores, no wounds Neurological: no paralysis, no weakness, no parathesias, no numbness, no tingling, no seizures Psychiatric: no anxiety, no memory loss, no change in sleep habits, no sleep disturbances, no insomnia Endocrine: no cold intolerance, no heat intolerance, no polyphagia, no excessive thirst Hematologic/Lymphatic: no easy bruising, no easy bleeding Allergic/Immunologic: no allergic rhinitis, no wheezing Exam - Constitutional Vitals: Temp Pulse Resp BP Pulse Ox 98.4 F 121 H 13 130/60 94 10/20/18 13:04 10/20/18 18:35 10/20/18 18:06 10/20/18 18:35 10/20/18 18:06 General appearance: Present: mild distress - EENT Eyes: Present: PERRL ENT: hearing intact, clear oral mucosa - Neck Neck: Present: supple, normal ROM - Respiratory Respiratory effort: labored Respiratory: bilateral: diminished, wheezing - Cardiovascular Rhythm: other (tachycardia) Heart Sounds: Present: S1 & S2. Absent: rub, click - Extremities Extremities: pulses symmetrical, No edema Peripheral Pulses: within normal limits - Abdominal General gastrointestinal: Present: soft, non-tender, non-distended, normal bowel sounds, other (gravid uterus) Female genitourinary: Present: normal - Integumentary Integumentary: Present: clear, warm, dry - Musculoskeletal Musculoskeletal: gait normal, strength equal bilaterally - Psychiatric Psychiatric: appropriate mood/affect, intact judgment & insight - Neurologic Neurologic: CNII-XII intact, moves all extremities Results - Labs CBC & Chem 7: 10/19/18 22:15 10/19/18 22:15 Labs: Abnormal lab results 10/19/18 10/19/18 10/19/18 Range/Units 22:15 22:15 22:15 RBC 3.16 L (3.65-5.03) M/mm3 Hgb 9.6 L (10.1-14.3) gm/dl Hct 27.8 L (30.3-42.9) % MCHC 35 H (30-34) % Seg Neuts % (Manual) 86.0 H (40.0-70.0) % Lymphocytes % (Manual) 3.0 L (13.4-35.0) % Nucleated RBC % 2.0 H (0.0-0.9) % Seg Neutrophils # Man 9.5 H (1.8-7.7) K/mm3 Lymphocytes # (Manual) 0.3 L (1.2-5.4) K/mm3 D-Dimer (0-234) ng/mlDDU POC ABG pH (7.35-7.45) POC ABG pCO2 (35-45) POC ABG pO2 (80-105) Sodium 132 L (137-145) mmol/L Potassium 3.1 L (3.6-5.0) mmol/L Chloride 96.9 L (98-107) mmol/L Carbon Dioxide 20 L (22-30) mmol/L BUN 6 L (7-17) mg/dL Creatinine 0.6 L (0.7-1.2) mg/dL Calcium 8.2 L (8.4-10.2) mg/dL AST 46 H (5-40) units/L Alkaline Phosphatase 159 H (35-129) units/L Total Protein 5.8 L (6.3-8.2) g/dL Albumin 3.2 L (3.9-5) g/dL U Epithel Cells (Auto) 16.0 H (0-13.0) /HPF 10/20/18 10/20/18 10/20/18 Range/Units 10:45 10:57 17:33 RBC (3.65-5.03) M/mm3 Hgb (10.1-14.3) gm/dl Hct (30.3-42.9) % MCHC (30-34) % Seg Neuts % (Manual) (40.0-70.0) % Lymphocytes % (Manual) (13.4-35.0) % Nucleated RBC % (0.0-0.9) % Seg Neutrophils # Man (1.8-7.7) K/mm3 Lymphocytes # (Manual) (1.2-5.4) K/mm3 D-Dimer 850.67 H (0-234) ng/mlDDU POC ABG pH 7.451 H (7.35-7.45) POC ABG pCO2 25.8 L 29.7 L (35-45) POC ABG pO2 65 L 147 H (80-105) Sodium (137-145) mmol/L Potassium (3.6-5.0) mmol/L Chloride (98-107) mmol/L Carbon Dioxide (22-30) mmol/L BUN (7-17) mg/dL Creatinine (0.7-1.2) mg/dL Calcium (8.4-10.2) mg/dL AST (5-40) units/L Alkaline Phosphatase (35-129) units/L Total Protein (6.3-8.2) g/dL Albumin (3.9-5) g/dL U Epithel Cells (Auto) (0-13.0) /HPF Assessment and Plan - Patient Problems (1) Acute asthma exacerbation Current Visit: Yes Status: Acute Qualifiers: Asthma severity: moderate Asthma persistence: persistent Qualified Code(s): J45.41 - Moderate persistent asthma with (acute) exacerbation Plan to address problem: IV steroid therpay, Magnesium sulfate, nebulizer therpay, supplemental oxygen. (2) Respiratory failure Current Visit: Yes Status: Acute Qualifiers: Chronicity: acute Respiratory failure complication: hypoxia Qualified Code(s): J96.01 - Acute respiratory failure with hypoxia Plan to address problem: Chest x ray, D dimer, BLE duplex, supplemental oxygen, pulse oximetry, nebulizer therapy, NIPPV as clinically indicated, ABG (3) DVT prophylaxis Current Visit: Yes Status: Acute Plan to address problem: SCD to BLE while in bed
[2018-10-20] MEDS ORDERED: MAGNESIUM SULFATE 1 GM in WATER FOR INJ (PF) 23 ML IV ONE (20:30)
[2018-10-20] MEDS: SOLU-Medrol IV SCH (22:28)
[2018-10-20] MEDS ORDERED: DUONEB *Not for PRN Use IH SCH (23:45)
[2018-10-21] MEDS: NORCO 5/325 PO PRN ×3 (01:37→21:31)
[2018-10-21] MEDS: PROVENTIL IH SCH ×8 (03:03→23:18)
[2018-10-21] MEDS: XOPENEX IH SCH ×5 (03:18→23:17)
[2018-10-21] MEDS: CLEOCIN PO SCH ×4 (08:50→21:34)
[2018-10-21] MEDS: PRENATAL VITAMIN PO SCH (09:04)
[2018-10-21] MEDS: SOLU-Medrol IV SCH ×2 (09:07→22:53)
[2018-10-21] MEDS: REGLAN IV PRN ×2 (09:08→18:56)
--- NOTE | 2018-10-21 15:43 | Progress Note ---
Assessment and Plan Assessment and plan: I cant breathe History of present illness: 28 YO Female with Mild Intermittent Asthma at 33 weeks Gestation. 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 LOOPER DVT prophylaxis per primary team History Interval history: Review of systems Constitutional: No fevers, no malaise, no joint pains CVS: No chest pain, no orthopnea, no dyspnea on exertion, no pedal edema GI: No abdominal pain, no diarrhea, no vomiting, no constipation Respiratory: Shortness of breath is improved, continues to have wheezing, occasional dry cough Hospitalist Physical - Physical exam Narrative exam: General.: Appears well, no distress, nontoxic HEENT: Moist mucous membranes, extraocular muscles intact, no lymphadenopathy Neck: supple Cardiac: S1-S2 heard Lungs: diminished air entry, wheezing abdomen: soft , nontender, gravid uterus, bowel sounds positive Extremities: no edema clubbing or cyanosis Skin: no rash or lesions Neurologic: no gross focal deficits Psych: appropriate behavior, appropriate mood, corporative, judgment intact - Constitutional Vitals: Temp Pulse Resp BP Pulse Ox 97.8 F 97 H 18 101/51 94 10/21/18 04:00 10/21/18 15:30 10/21/18 11:58 10/21/18 15:30 10/21/18 15:30 General appearance: Present: mild distress Results - Labs CBC & Chem 7: 10/19/18 22:15 10/19/18 22:15 Labs: Laboratory Last Values WBC 11.0 K/mm3 (4.5-11.0) 10/19/18 22:15 RBC 3.16 M/mm3 (3.65-5.03) L 10/19/18 22:15 Hgb 9.6 gm/dl (10.1-14.3) L 10/19/18 22:15 Hct 27.8 % (30.3-42.9) L 10/19/18 22:15 MCV 88 fl (79-97) 10/19/18 22:15 MCH 30 pg (28-32) 10/19/18 22:15 MCHC 35 % (30-34) H 10/19/18 22:15 RDW 14.1 % (13.2-15.2) 10/19/18 22:15 Plt Count 229 K/mm3 (140-440) 10/19/18 22:15 Add Manual Diff Complete 10/19/18 22:15 Total Counted 100 10/19/18 22:15 Seg Neutrophils % Water [employer]per 10/19/18 22:15 Seg Neuts % (Manual) 86.0 % (40.0-70.0) H 10/19/18 22:15 Band Neutrophils % 5.0 % 10/19/18 22:15 Lymphocytes % (Manual) 3.0 % (13.4-35.0) L 10/19/18 22:15 Reactive Lymphs % (Man) 0 % 10/19/18 22:15 Monocytes % (Manual) 6.0 % (0.0-7.3) 10/19/18 22:15 Eosinophils % (Manual) 0 % (0.0-4.3) 10/19/18 22:15 Basophils % (Manual) 0 % (0.0-1.8) 10/19/18 22:15 Metamyelocytes % 0 % 10/19/18 22:15 Myelocytes % 0 % 10/19/18 22:15 Promyelocytes % 0 % 10/19/18 22:15 Blast Cells % 0 % 10/19/18 22:15 Nucleated RBC % 2.0 % (0.0-0.9) H 10/19/18 22:15 Seg Neutrophils # Man 9.5 K/mm3 (1.8-7.7) H 10/19/18 22:15 Band Neutrophils # 0.6 K/mm3 10/19/18 22:15 Lymphocytes # (Manual) 0.3 K/mm3 (1.2-5.4) L 10/19/18 22:15 Abs React Lymphs (Man) 0.0 K/mm3 10/19/18 22:15 Monocytes # (Manual) 0.7 K/mm3 (0.0-0.8) 10/19/18 22:15 Eosinophils # (Manual) 0.0 K/mm3 (0.0-0.4) 10/19/18 22:15 Basophils # (Manual) 0.0 K/mm3 (0.0-0.1) 10/19/18 22:15 Metamyelocytes # 0.0 K/mm3 10/19/18 22:15 Myelocytes # 0.0 K/mm3 10/19/18 22:15 Promyelocytes # 0.0 K/mm3 10/19/18 22:15 Blast Cells # 0.0 K/mm3 10/19/18 22:15 WBC Morphology Not Reportable 10/19/18 22:15 Hypersegmented Neuts Not Reportable 10/19/18 22:15 Hyposegmented Neuts Not Reportable 10/19/18 22:15 Hypogranular Neuts Not Reportable 10/19/18 22:15 Smudge Cells Not Reportable 10/19/18 22:15 Toxic Granulation Not Reportable 10/19/18 22:15 Toxic Vacuolation Not Reportable 10/19/18 22:15 Dohle Bodies Not Reportable 10/19/18 22:15 Pelger-Huet Anomaly Not Reportable 10/19/18 22:15 Keely Rods Not Reportable 10/19/18 22:15 Platelet Estimate Appears normal 10/19/18 22:15 Clumped Platelets Not Reportable 10/19/18 22:15 Plt Clumps, EDTA Not Reportable 10/19/18 22:15 Large Platelets Not Reportable 10/19/18 22:15 Giant Platelets Not Reportable 10/19/18 22:15 Platelet Satelliting Not Reportable 10/19/18 22:15 Plt Morphology Comment Not Reportable 10/19/18 22:15 RBC Morphology Not Reportable 10/19/18 22:15 Dimorphic RBCs Not Reportable 10/19/18 22:15 Polychromasia Not Reportable 10/19/18 22:15 Hypochromasia Not Reportable 10/19/18 22:15 Poikilocytosis Not Reportable 10/19/18 22:15 Anisocytosis 1+ 10/19/18 22:15 Microcytosis Not Reportable 10/19/18 22:15 Macrocytosis Not Reportable 10/19/18 22:15 Spherocytes Not Reportable 10/19/18 22:15 Pappenheimer Bodies Not Reportable 10/19/18 22:15 Sickle Cells Not Reportable 10/19/18 22:15 Target Cells Not Reportable 10/19/18 22:15 Tear Drop Cells Not Reportable 10/19/18 22:15 Ovalocytes Not Reportable 10/19/18 22:15 Helmet Cells Not Reportable 10/19/18 22:15 [place] Bodies Not Reportable 10/19/18 22:15 [place] Rings Not Reportable 10/19/18 22:15 Mary Cells Not Reportable 10/19/18 22:15 Bite Cells Not Reportable 10/19/18 22:15 Crenated Cell Not Reportable 10/19/18 22:15 Elliptocytes Not Reportable 10/19/18 22:15 Acanthocytes (Spur) Not Reportable 10/19/18 22:15 Rouleaux Not Reportable 10/19/18 22:15 Hemoglobin C Crystals Not Reportable 10/19/18 22:15 Schistocytes Not Reportable 10/19/18 22:15 Malaria parasites Not Reportable 10/19/18 22:15 [place] Bodies Not Reportable 10/19/18 22:15 Hem Pathologist Commnt No 10/19/18 22:15 D-Dimer 850.67 ng/mlDDU (0-234) H 10/20/18 10:45 POC ABG pH 7.422 (7.35-7.45) 10/20/18 17:33 POC ABG pCO2 29.7 (35-45) L 10/20/18 17:33 POC ABG pO2 147 (80-105) H 10/20/18 17:33 POC ABG HCO3 19.4 10/20/18 17:33 POC ABG Total CO2 20 10/20/18 17:33 POC ABG O2 Sat 99 10/20/18 17:33 POC ABG Base Excess -5 10/20/18 17:33 FiO2 100 % 10/20/18 17:33 Sodium 132 mmol/L (137-145) L 10/19/18 22:15 Potassium 3.1 mmol/L (3.6-5.0) L 10/19/18 22:15 Chloride 96.9 mmol/L (98-107) L 10/19/18 22:15 Carbon Dioxide 20 mmol/L (22-30) L 10/19/18 22:15 Anion Gap 18 mmol/L 10/19/18 22:15 BUN 6 mg/dL (7-17) L 10/19/18 22:15 Creatinine 0.6 mg/dL (0.7-1.2) L 10/19/18 22:15 Estimated GFR > 60 ml/min 10/19/18 22:15 BUN/Creatinine Ratio 10 % 10/19/18 22:15 Glucose 71 mg/dL (65-100) 10/19/18 22:15 Calcium 8.2 mg/dL (8.4-10.2) L 10/19/18 22:15 Total Bilirubin 0.50 mg/dL (0.1-1.2) 10/19/18 22:15 AST 46 units/L (5-40) H 10/19/18 22:15 ALT 54 units/L (7-56) 10/19/18 22:15 Alkaline Phosphatase 159 units/L (35-129) H 10/19/18 22:15 Troponin T < 0.010 ng/mL (0.00-0.029) 10/20/18 10:45 Total Protein 5.8 g/dL (6.3-8.2) L 10/19/18 22:15 Albumin 3.2 g/dL (3.9-5) L 10/19/18 22:15 Albumin/Globulin Ratio 1.2 % 10/19/18 22:15 Urine Color [place] (Yellow) 10/19/18 22:15 Urine Turbidity Cloudy (Clear) 10/19/18 22:15 Urine pH 5.0 (5.0-7.0) 10/19/18 22:15 Ur Specific [place] 1.027 (1.003-1.030) 10/19/18 22:15 Urine Protein 100 mg/dl mg/dL (Negative) 10/19/18 22:15 Urine Glucose (UA) Neg mg/dL (Negative) 10/19/18 22:15 Urine Ketones Tr mg/dL (Negative) 10/19/18 22:15 Urine Blood Neg (Negative) 10/19/18 22:15 Urine Nitrite Neg (Negative) 10/19/18 22:15 Urine Bilirubin Neg (Negative) 10/19/18 22:15 Urine Urobilinogen 4.0 mg/dL (<2.0) 10/19/18 22:15 Ur Leukocyte Esterase Neg (Negative) 10/19/18 22:15 Urine WBC (Auto) 3.0 /HPF (0.0-6.0) 10/19/18 22:15 Urine RBC (Auto) 1.0 /HPF (0.0-6.0) 10/19/18 22:15 U Epithel Cells (Auto) 16.0 /HPF (0-13.0) H 10/19/18 22:15 Urine Bacteria (Auto) 1+ /HPF (Negative) 10/19/18 22:15 Urine Mucus 1+ /HPF 10/19/18 22:15 Influenza A (Rapid) Negative (Negative) 10/19/18 22:15 Influenza B (Rapid) Negative (Negative) 10/19/18 22:15 Blood Type A POSITIVE 10/20/18 13:47 Antibody Screen Negative 10/20/18 13:47
--- NOTE | 2018-10-21 16:57 | Progress Note ---
Assessment and Plan - Patient Problems (1) Acute asthma exacerbation Current Visit: Yes Status: Acute Qualifiers: Asthma severity: moderate Asthma persistence: persistent Qualified Code(s): J45.41 - Moderate persistent asthma with (acute) exacerbation Plan to address problem: demonstrating clinical improvement (2) Tooth abscess Current Visit: No Status: Acute Subjective - Subjective Date of service: 10/21/18 Principal diagnosis: asthma exacerbation Interval history: 28y/o @ 33+1 weeks presents with acute asthma exacerbation. CXR and lower extremity dopplers were negative. Patient reports improvement in symptoms today. Breathing is no longer labored. She denies any uterine contractions. Good movement appreciated. Patient reports: movement normal, no new complaints, no vaginal bleeding, no contractions Objective - Vital Signs Vital Signs: Vital Signs - 12hr 10/21/18 10/21/18 10/21/18 05:00 05:10 05:20 Pulse Rate 88 86 83 Pulse Rate [ Bilateral] Pulse Rate [ From Monitor] Respiratory 18 20 16 Rate Respiratory Rate [Bilateral ] Blood Pressure 112/56 112/56 112/56 O2 Sat by Pulse 99 99 99 Oximetry 10/21/18 10/21/18 10/21/18 05:30 05:40 05:50 Pulse Rate 87 91 H 78 Pulse Rate [ Bilateral] Pulse Rate [ From Monitor] Respiratory 16 14 15 Rate Respiratory Rate [Bilateral ] Blood Pressure 112/56 112/56 112/56 O2 Sat by Pulse 98 98 98 Oximetry 10/21/18 10/21/18 10/21/18 06:00 06:10 06:20 Pulse Rate 83 88 78 Pulse Rate [ Bilateral] Pulse Rate [ From Monitor] Respiratory 16 18 14 Rate Respiratory Rate [Bilateral ] Blood Pressure 112/56 O2 Sat by Pulse 97 97 97 Oximetry 10/21/18 10/21/18 10/21/18 06:30 06:40 06:50 Pulse Rate 87 77 81 Pulse Rate [ Bilateral] Pulse Rate [ From Monitor] Respiratory 15 13 17 Rate Respiratory Rate [Bilateral ] Blood Pressure O2 Sat by Pulse 97 98 97 Oximetry 10/21/18 10/21/18 10/21/18 06:53 07:00 07:10 Pulse Rate 110 H 88 Pulse Rate [ 111 H 108 H Bilateral] Pulse Rate [ From Monitor] Respiratory 26 H 28 H Rate Respiratory 24 22 Rate [Bilateral ] Blood Pressure O2 Sat by Pulse 93 98 Oximetry 10/21/18 10/21/18 10/21/18 07:20 07:30 07:40 Pulse Rate 87 87 112 H Pulse Rate [ Bilateral] Pulse Rate [ From Monitor] Respiratory Rate Respiratory Rate [Bilateral ] Blood Pressure O2 Sat by Pulse 100 98 98 Oximetry 10/21/18 10/21/18 10/21/18 07:50 08:00 08:10 Pulse Rate 88 91 H 98 H Pulse Rate [ Bilateral] Pulse Rate [ From Monitor] Respiratory 18 21 21 Rate Respiratory Rate [Bilateral ] Blood Pressure 106/69 106/69 106/77 O2 Sat by Pulse 100 100 96 Oximetry 10/21/18 10/21/18 10/21/18 08:20 08:30 08:40 Pulse Rate 95 H 94 H 96 H Pulse Rate [ Bilateral] Pulse Rate [ From Monitor] Respiratory 13 20 19 Rate Respiratory Rate [Bilateral ] Blood Pressure 106/77 106/77 106/77 O2 Sat by Pulse 100 100 98 Oximetry 10/21/18 10/21/18 10/21/18 08:50 09:00 09:10 Pulse Rate 99 H 102 H 101 H Pulse Rate [ Bilateral] Pulse Rate [ From Monitor] Respiratory 16 16 14 Rate Respiratory Rate [Bilateral ] Blood Pressure 106/77 90/47 104/47 O2 Sat by Pulse 98 99 100 Oximetry 10/21/18 10/21/18 10/21/18 09:20 09:30 09:39 Pulse Rate 118 H 100 H Pulse Rate [ 93 H Bilateral] Pulse Rate [ From Monitor] Respiratory Rate Respiratory 20 Rate [Bilateral ] Blood Pressure 104/47 123/56 O2 Sat by Pulse 98 98 Oximetry 10/21/18 10/21/18 10/21/18 09:40 09:41 09:50 Pulse Rate 95 H 100 H Pulse Rate [ 94 H Bilateral] Pulse Rate [ From Monitor] Respiratory Rate Respiratory 20 Rate [Bilateral ] Blood Pressure 123/56 123/56 O2 Sat by Pulse 98 99 99 Oximetry 10/21/18 10/21/18 10/21/18 10:00 10:10 10:20 Pulse Rate 93 H 94 H 98 H Pulse Rate [ Bilateral] Pulse Rate [ From Monitor] Respiratory Rate Respiratory Rate [Bilateral ] Blood Pressure 101/43 101/43 101/43 O2 Sat by Pulse 98 98 98 Oximetry 10/21/18 10/21/18 10/21/18 10:30 10:40 10:50 Pulse Rate 101 H 98 H 98 H Pulse Rate [ Bilateral] Pulse Rate [ From Monitor] Respiratory Rate Respiratory Rate [Bilateral ] Blood Pressure 101/43 101/43 101/43 O2 Sat by Pulse 98 99 98 Oximetry 10/21/18 10/21/18 10/21/18 11:00 11:10 11:20 Pulse Rate 96 H 95 H 98 H Pulse Rate [ Bilateral] Pulse Rate [ From Monitor] Respiratory Rate Respiratory Rate [Bilateral ] Blood Pressure 101/42 101/42 101/42 O2 Sat by Pulse 98 98 97 Oximetry 10/21/18 10/21/18 10/21/18 11:30 11:40 11:48 Pulse Rate 101 H 95 H Pulse Rate [ Bilateral] Pulse Rate [ 100 H From Monitor] Respiratory 96 H Rate Respiratory Rate [Bilateral ] Blood Pressure 101/42 101/42 O2 Sat by Pulse 97 98 98 Oximetry 10/21/18 10/21/18 10/21/18 11:50 11:58 12:00 Pulse Rate 101 H 112 H Pulse Rate [ 101 H Bilateral] Pulse Rate [ From Monitor] Respiratory Rate Respiratory 18 Rate [Bilateral ] Blood Pressure 101/42 117/85 O2 Sat by Pulse 97 100 Oximetry 10/21/18 10/21/18 10/21/18 12:10 12:20 12:30 Pulse Rate 106 H 107 H 106 H Pulse Rate [ Bilateral] Pulse Rate [ From Monitor] Respiratory Rate Respiratory Rate [Bilateral ] Blood Pressure 117/85 117/85 117/85 O2 Sat by Pulse 99 99 97 Oximetry 10/21/18 10/21/18 10/21/18 12:40 12:50 13:00 Pulse Rate 108 H 109 H 101 H Pulse Rate [ Bilateral] Pulse Rate [ From Monitor] Respiratory Rate Respiratory Rate [Bilateral ] Blood Pressure 117/85 117/85 103/63 O2 Sat by Pulse 95 94 93 Oximetry 10/21/18 10/21/18 10/21/18 13:10 13:20 13:30 Pulse Rate 104 H 103 H 101 H Pulse Rate [ Bilateral] Pulse Rate [ From Monitor] Respiratory Rate Respiratory Rate [Bilateral ] Blood Pressure 117/85 117/85 117/85 O2 Sat by Pulse 94 93 95 Oximetry 10/21/18 10/21/18 10/21/18 13:40 13:50 14:00 Pulse Rate 102 H 99 H 96 H Pulse Rate [ Bilateral] Pulse Rate [ From Monitor] Respiratory Rate Respiratory Rate [Bilateral ] Blood Pressure 117/85 117/85 110/73 O2 Sat by Pulse 96 100 99 Oximetry 10/21/18 10/21/18 10/21/18 14:10 14:20 14:30 Pulse Rate 112 H 95 H 89 Pulse Rate [ Bilateral] Pulse Rate [ From Monitor] Respiratory Rate Respiratory Rate [Bilateral ] Blood Pressure 110/73 110/73 110/73 O2 Sat by Pulse 90 100 100 Oximetry 10/21/18 10/21/18 10/21/18 14:40 14:50 15:00 Pulse Rate 92 H 93 H 91 H Pulse Rate [ Bilateral] Pulse Rate [ From Monitor] Respiratory Rate Respiratory Rate [Bilateral ] Blood Pressure 110/73 110/73 101/51 O2 Sat by Pulse 100 100 98 Oximetry 10/21/18 10/21/18 10/21/18 15:10 15:20 15:30 Pulse Rate 102 H 96 H 97 H Pulse Rate [ Bilateral] Pulse Rate [ From Monitor] Respiratory Rate Respiratory Rate [Bilateral ] Blood Pressure 101/51 101/51 101/51 O2 Sat by Pulse 97 100 94 Oximetry 10/21/18 16:21 Pulse Rate Pulse Rate [ 109 H Bilateral] Pulse Rate [ From Monitor] Respiratory Rate Respiratory 19 Rate [Bilateral ] Blood Pressure O2 Sat by Pulse Oximetry - Labs Labs: Abnormal Labs 10/19/18 10/19/18 10/19/18 22:15 22:15 22:15 RBC 3.16 L Hgb 9.6 L Hct 27.8 L MCHC 35 H Seg Neuts % (Manual) 86.0 H Lymphocytes % (Manual) 3.0 L Nucleated RBC % 2.0 H Seg Neutrophils # Man 9.5 H Lymphocytes # (Manual) 0.3 L D-Dimer POC ABG pH POC ABG pCO2 POC ABG pO2 Sodium 132 L Potassium 3.1 L Chloride 96.9 L Carbon Dioxide 20 L BUN 6 L Creatinine 0.6 L Calcium 8.2 L AST 46 H Alkaline Phosphatase 159 H Total Protein 5.8 L Albumin 3.2 L U Epithel Cells (Auto) 16.0 H 10/20/18 10/20/18 10/20/18 10:45 10:57 17:33 RBC Hgb Hct MCHC Seg Neuts % (Manual) Lymphocytes % (Manual) Nucleated RBC % Seg Neutrophils # Man Lymphocytes # (Manual) D-Dimer 850.67 H POC ABG pH 7.451 H POC ABG pCO2 25.8 L 29.7 L POC ABG pO2 65 L 147 H Sodium Potassium Chloride Carbon Dioxide BUN Creatinine Calcium AST Alkaline Phosphatase Total Protein Albumin U Epithel Cells (Auto) Laboratory Results - last 24 hr 10/20/18 10/21/18 17:33 16:17 POC ABG pH 7.422 POC ABG pCO2 29.7 L POC ABG pO2 147 H POC ABG HCO3 19.4 POC ABG Total CO2 20 POC ABG O2 Sat 99 POC ABG Base Excess -5 FiO2 100 Potassium 3.6 Magnesium 2.10
[2018-10-21] MEDS: ALUM-MAG HYDROX-SIMETH 200-200-20MG/5ML PO PRN (21:29)
[2018-10-22] MEDS: REGLAN IV PRN (03:17)
[2018-10-22] MEDS: NORCO 5/325 PO PRN ×2 (03:17→10:12)
[2018-10-22] MEDS: PROVENTIL IH SCH ×5 (04:19→19:38)
[2018-10-22] MEDS: ALUM-MAG HYDROX-SIMETH 200-200-20MG/5ML PO PRN ×2 (05:29→18:19)
--- NOTE | 2018-10-22 08:39 | Progress Note ---
Assessment and Plan A: IUP at 33w3d Acute asthma exacerbation GERD Nausea/vomiting/abdominal pain s/p GI consult outpatient H/o delivery at 36 wks P: Continue current management per primary service NST q shift for monitoring IV Pepcid scheduled IV Zofran PRN Closely monitor clinical status Subjective - Subjective Date of service: 10/22/18 Principal diagnosis: asthma exacerbation, IUP at 33w3d Interval history: Pt reports that she feels better, but that she cannot take more than a few steps without being short of breath. She also reports nausea and prefers Zofran to Reglan. She mentions heartburn also and desires IV medication. No obstetric complaints. Patient reports: movement normal, no new complaints, no loss of fluid, no vaginal bleeding, no contractions Objective - Vital Signs Vital Signs: Vital Signs - 12hr 10/21/18 10/21/18 10/21/18 20:40 20:50 21:00 Temperature Pulse Rate 98 H 101 H 105 H Pulse Rate [ Bilateral] Pulse Rate [ From Monitor] Respiratory 17 18 14 Rate Respiratory Rate [Bilateral ] Blood Pressure 137/71 137/71 137/71 O2 Sat by Pulse 100 99 99 Oximetry 10/21/18 10/21/18 10/21/18 21:10 21:20 21:30 Temperature Pulse Rate 113 H 114 H 109 H Pulse Rate [ Bilateral] Pulse Rate [ From Monitor] Respiratory 20 12 21 Rate Respiratory Rate [Bilateral ] Blood Pressure 137/71 137/71 137/71 O2 Sat by Pulse 97 98 98 Oximetry 10/21/18 10/21/18 10/21/18 21:40 21:50 22:00 Temperature Pulse Rate 110 H 105 H 110 H Pulse Rate [ Bilateral] Pulse Rate [ From Monitor] Respiratory 20 14 17 Rate Respiratory Rate [Bilateral ] Blood Pressure 137/71 137/71 137/71 O2 Sat by Pulse 100 100 99 Oximetry 10/21/18 10/21/18 10/21/18 22:10 22:20 22:30 Temperature Pulse Rate 95 H 91 H 92 H Pulse Rate [ Bilateral] Pulse Rate [ From Monitor] Respiratory 21 21 19 Rate Respiratory Rate [Bilateral ] Blood Pressure 137/71 137/71 137/71 O2 Sat by Pulse 100 100 99 Oximetry 10/21/18 10/21/18 10/21/18 22:40 22:50 23:00 Temperature Pulse Rate 95 H 93 H 96 H Pulse Rate [ Bilateral] Pulse Rate [ 95 H From Monitor] Respiratory 17 17 27 H Rate Respiratory Rate [Bilateral ] Blood Pressure 137/71 137/71 137/71 O2 Sat by Pulse 99 99 98 Oximetry 10/21/18 10/21/18 10/21/18 23:10 23:18 23:20 Temperature Pulse Rate 101 H 100 H Pulse Rate [ 91 H Bilateral] Pulse Rate [ From Monitor] Respiratory 19 15 Rate Respiratory 17 Rate [Bilateral ] Blood Pressure 107/52 107/52 O2 Sat by Pulse 93 100 Oximetry 10/21/18 10/21/18 10/21/18 23:30 23:35 23:40 Temperature Pulse Rate 107 H 99 H Pulse Rate [ 120 H Bilateral] Pulse Rate [ From Monitor] Respiratory 18 17 Rate Respiratory 20 Rate [Bilateral ] Blood Pressure 107/52 107/52 O2 Sat by Pulse 100 99 Oximetry 10/21/18 10/22/18 10/22/18 23:50 00:00 00:05 Temperature 98.0 F Pulse Rate 99 H 96 H 94 H Pulse Rate [ Bilateral] Pulse Rate [ From Monitor] Respiratory 25 H 18 16 Rate Respiratory Rate [Bilateral ] Blood Pressure 107/52 107/52 111/51 O2 Sat by Pulse 99 98 98 Oximetry 10/22/18 10/22/18 10/22/18 00:10 00:20 00:30 Temperature Pulse Rate 96 H 90 91 H Pulse Rate [ Bilateral] Pulse Rate [ From Monitor] Respiratory 17 16 16 Rate Respiratory Rate [Bilateral ] Blood Pressure 111/51 111/51 111/51 O2 Sat by Pulse 98 98 98 Oximetry 10/22/18 10/22/18 10/22/18 00:40 00:50 01:00 Temperature Pulse Rate 94 H 96 H 87 Pulse Rate [ Bilateral] Pulse Rate [ From Monitor] Respiratory 17 16 13 Rate Respiratory Rate [Bilateral ] Blood Pressure 111/51 111/51 98/42 O2 Sat by Pulse 95 95 97 Oximetry 10/22/18 10/22/18 10/22/18 01:10 01:20 01:30 Temperature Pulse Rate 105 H 90 99 H Pulse Rate [ Bilateral] Pulse Rate [ From Monitor] Respiratory 14 16 17 Rate Respiratory Rate [Bilateral ] Blood Pressure 98/42 98/42 98/42 O2 Sat by Pulse 98 98 98 Oximetry 10/22/18 10/22/18 10/22/18 01:40 01:50 02:00 Temperature Pulse Rate 102 H 97 H 96 H Pulse Rate [ Bilateral] Pulse Rate [ From Monitor] Respiratory 14 16 15 Rate Respiratory Rate [Bilateral ] Blood Pressure 98/42 98/42 106/64 O2 Sat by Pulse 99 98 100 Oximetry 10/22/18 10/22/18 10/22/18 02:10 02:20 02:30 Temperature Pulse Rate 89 97 H 93 H Pulse Rate [ Bilateral] Pulse Rate [ From Monitor] Respiratory 15 16 19 Rate Respiratory Rate [Bilateral ] Blood Pressure 106/64 106/64 106/64 O2 Sat by Pulse 100 100 99 Oximetry 10/22/18 10/22/18 10/22/18 02:40 02:50 03:00 Temperature Pulse Rate 92 H 85 109 H Pulse Rate [ Bilateral] Pulse Rate [ From Monitor] Respiratory 16 19 12 Rate Respiratory Rate [Bilateral ] Blood Pressure 106/64 106/64 106/64 O2 Sat by Pulse 100 100 100 Oximetry 10/22/18 10/22/18 10/22/18 03:10 03:20 03:32 Temperature Pulse Rate 97 H 86 101 H Pulse Rate [ Bilateral] Pulse Rate [ From Monitor] Respiratory 14 13 14 Rate Respiratory Rate [Bilateral ] Blood Pressure 105/66 105/66 41/26 O2 Sat by Pulse 100 99 86 Oximetry 10/22/18 10/22/18 10/22/18 03:40 03:50 04:00 Temperature 98.6 F Pulse Rate 87 84 78 Pulse Rate [ Bilateral] Pulse Rate [ 84 From Monitor] Respiratory 17 15 21 Rate Respiratory Rate [Bilateral ] Blood Pressure 41/26 41/26 101/54 O2 Sat by Pulse 99 98 97 Oximetry 10/22/18 10/22/18 10/22/18 04:10 04:19 04:20 Temperature Pulse Rate 87 78 Pulse Rate [ 79 Bilateral] Pulse Rate [ From Monitor] Respiratory 21 14 Rate Respiratory 14 Rate [Bilateral ] Blood Pressure 105/66 105/66 O2 Sat by Pulse 97 98 Oximetry 10/22/18 10/22/18 10/22/18 04:30 04:32 04:40 Temperature Pulse Rate 103 H 102 H Pulse Rate [ 107 H Bilateral] Pulse Rate [ From Monitor] Respiratory 14 14 Rate Respiratory 14 Rate [Bilateral ] Blood Pressure 105/66 105/66 O2 Sat by Pulse 99 99 Oximetry 12/10/22/18 10/22/18 04:50 05:00 05:10 Temperature Pulse Rate 101 H 93 H 96 H Pulse Rate [ Bilateral] Pulse Rate [ From Monitor] Respiratory 14 13 16 Rate Respiratory Rate [Bilateral ] Blood Pressure 105/66 102/45 102/45 O2 Sat by Pulse 99 99 99 Oximetry 10/22/18 10/22/18 10/22/18 05:20 05:30 05:40 Temperature Pulse Rate 94 H 94 H 94 H Pulse Rate [ Bilateral] Pulse Rate [ From Monitor] Respiratory 14 13 15 Rate Respiratory Rate [Bilateral ] Blood Pressure 102/45 102/45 102/45 O2 Sat by Pulse 99 99 99 Oximetry 10/22/18 10/22/18 10/22/18 05:50 06:00 06:10 Temperature Pulse Rate 97 H 98 H 96 H Pulse Rate [ Bilateral] Pulse Rate [ From Monitor] Respiratory 24 22 14 Rate Respiratory Rate [Bilateral ] Blood Pressure 102/45 92/58 92/58 O2 Sat by Pulse 99 99 99 Oximetry 10/22/18 06:20 Temperature Pulse Rate 99 H Pulse Rate [ Bilateral] Pulse Rate [ From Monitor] Respiratory 14 Rate Respiratory Rate [Bilateral ] Blood Pressure 92/58 O2 Sat by Pulse 98 Oximetry - Exam Breasts: deferred Cardiovascular: Regular rate Lungs: Clear to auscultation, Other (+ wheexzing, ) Abdomen: Present: soft (gravid ) Uterus: Present: normal (gravid ) Extremities: normal - Labs Labs: Abnormal Labs 10/19/18 10/19/18 10/19/18 22:15 22:15 22:15 RBC 3.16 L Hgb 9.6 L Hct 27.8 L MCHC 35 H Seg Neuts % (Manual) 86.0 H Lymphocytes % (Manual) 3.0 L Nucleated RBC % 2.0 H Seg Neutrophils # Man 9.5 H Lymphocytes # (Manual) 0.3 L D-Dimer POC ABG pH POC ABG pCO2 POC ABG pO2 Sodium 132 L Potassium 3.1 L Chloride 96.9 L Carbon Dioxide 20 L BUN 6 L Creatinine 0.6 L Calcium 8.2 L AST 46 H Alkaline Phosphatase 159 H Total Protein 5.8 L Albumin 3.2 L U Epithel Cells (Auto) 16.0 H 10/20/18 10/20/18 10/20/18 10:45 10:57 17:33 RBC Hgb Hct MCHC Seg Neuts % (Manual) Lymphocytes % (Manual) Nucleated RBC % Seg Neutrophils # Man Lymphocytes # (Manual) D-Dimer 850.67 H POC ABG pH 7.451 H POC ABG pCO2 25.8 L 29.7 L POC ABG pO2 65 L 147 H Sodium Potassium Chloride Carbon Dioxide BUN Creatinine Calcium AST Alkaline Phosphatase Total Protein Albumin U Epithel Cells (Auto) Laboratory Results - last 24 hr 10/21/18 16:17 Potassium 3.6 Magnesium 2.10
[2018-10-22] MEDS: XOPENEX IH SCH ×2 (09:14→16:43)
[2018-10-22] MEDS: CLEOCIN PO SCH ×3 (10:12→23:29)
[2018-10-22] MEDS: PEPCID IV SCH ×2 (10:12→21:34)
[2018-10-22] MEDS: PRENATAL VITAMIN PO SCH (10:12)
[2018-10-22] MEDS: SOLU-Medrol IV SCH ×2 (10:12→21:34)
[2018-10-22] MEDS: ZOFRAN IV PRN ×2 (10:13→21:53)
[2018-10-22] MEDS: D5LR 1,000 ML IV SCH ×2 (10:23→18:13)
--- NOTE | 2018-10-22 16:28 | Progress Note ---
Assessment and Plan Assessment and plan: I cant breathe History of present illness: 28 YO Female with Mild Intermittent Asthma at 33 weeks Gestation. pw fever, chills, sob and wheezing Past History Past Medical History: other (Asthma) Bilateral lower extremity duplex negative for PE Diagnoses Acute asthma exacerbation Acute respiratory failure Hypokalemia at 33 weeks Anxiety Plan Steroids nebs, oxygen supplements Repleted potassium, repeat potassium was normal care per ASSOCIATE COUNSEL -We'll give a few doses of Dilaudid for extreme anxiety, she has a grandmother was in hospice, and she is fighting with her baby shante. She is very anxious and taking shallow breaths, decided to give a narcotic instead of a benzodiazepine as the patient is already on [place]. And I warned the patient had both cross the placental barrier, she verbalized understanding. DVT prophylaxis per primary team History Interval history: Review of systems Constitutional: No fevers, no malaise, no joint pains CVS: No chest pain, no orthopnea, no dyspnea on exertion, no pedal edema GI: No abdominal pain, no diarrhea, no vomiting, no constipation Respiratory: Shortness of breath is improved, continues to have wheezing, occasional dry cough Hospitalist Physical - Physical exam Narrative exam: General.: Appears well, no distress, nontoxic HEENT: Moist mucous membranes, extraocular muscles intact, no lymphadenopathy Neck: supple Cardiac: S1-S2 heard Lungs: diminished air entry, wheezing abdomen: soft , nontender, gravid uterus, bowel sounds positive Extremities: no edema clubbing or cyanosis Skin: no rash or lesions Neurologic: no gross focal deficits Psych: Appears anxious, appropriate behavior, appropriate mood, corporative, judgment intact - Constitutional Vitals: Temp Pulse Resp BP Pulse Ox 98.6 F 103 H 18 107/68 99 10/22/18 04:00 10/22/18 13:00 10/22/18 13:00 10/22/18 13:00 10/22/18 13:00 General appearance: Present: mild distress Results - Labs CBC & Chem 7: 10/19/18 22:15 10/21/18 16:17 Labs: Laboratory Last Values WBC 11.0 K/mm3 (4.5-11.0) 10/19/18 22:15 RBC 3.16 M/mm3 (3.65-5.03) L 10/19/18 22:15 Hgb 9.6 gm/dl (10.1-14.3) L 10/19/18 22:15 Hct 27.8 % (30.3-42.9) L 10/19/18 22:15 MCV 88 fl (79-97) 10/19/18 22:15 MCH 30 pg (28-32) 10/19/18 22:15 MCHC 35 % (30-34) H 10/19/18 22:15 RDW 14.1 % (13.2-15.2) 10/19/18 22:15 Plt Count 229 K/mm3 (140-440) 10/19/18 22:15 Add Manual Diff Complete 10/19/18 22:15 Total Counted 100 10/19/18 22:15 Seg Neutrophils % Patient Relations Specialist 10/19/18 22:15 Seg Neuts % (Manual) 86.0 % (40.0-70.0) H 10/19/18 22:15 Band Neutrophils % 5.0 % 10/19/18 22:15 Lymphocytes % (Manual) 3.0 % (13.4-35.0) L 10/19/18 22:15 Reactive Lymphs % (Man) 0 % 10/19/18 22:15 Monocytes % (Manual) 6.0 % (0.0-7.3) 10/19/18 22:15 Eosinophils % (Manual) 0 % (0.0-4.3) 10/19/18 22:15 Basophils % (Manual) 0 % (0.0-1.8) 10/19/18 22:15 Metamyelocytes % 0 % 10/19/18 22:15 Myelocytes % 0 % 10/19/18 22:15 Promyelocytes % 0 % 10/19/18 22:15 Blast Cells % 0 % 10/19/18 22:15 Nucleated RBC % 2.0 % (0.0-0.9) H 10/19/18 22:15 Seg Neutrophils # Man 9.5 K/mm3 (1.8-7.7) H 10/19/18 22:15 Band Neutrophils # 0.6 K/mm3 10/19/18 22:15 Lymphocytes # (Manual) 0.3 K/mm3 (1.2-5.4) L 10/19/18 22:15 Abs React Lymphs (Man) 0.0 K/mm3 10/19/18 22:15 Monocytes # (Manual) 0.7 K/mm3 (0.0-0.8) 10/19/18 22:15 Eosinophils # (Manual) 0.0 K/mm3 (0.0-0.4) 10/19/18 22:15 Basophils # (Manual) 0.0 K/mm3 (0.0-0.1) 10/19/18 22:15 Metamyelocytes # 0.0 K/mm3 10/19/18 22:15 Myelocytes # 0.0 K/mm3 10/19/18 22:15 Promyelocytes # 0.0 K/mm3 10/19/18 22:15 Blast Cells # 0.0 K/mm3 10/19/18 22:15 WBC Morphology Not Reportable 10/19/18 22:15 Hypersegmented Neuts Not Reportable 10/19/18 22:15 Hyposegmented Neuts Not Reportable 10/19/18 22:15 Hypogranular Neuts Not Reportable 10/19/18 22:15 Smudge Cells Not Reportable 10/19/18 22:15 Toxic Granulation Not Reportable 10/19/18 22:15 Toxic Vacuolation Not Reportable 10/19/18 22:15 Dohle Bodies Not Reportable 10/19/18 22:15 Pelger-Huet Anomaly Not Reportable 10/19/18 22:15 Keely Rods Not Reportable 10/19/18 22:15 Platelet Estimate Appears normal 10/19/18 22:15 Clumped Platelets Not Reportable 10/19/18 22:15 Plt Clumps, EDTA Not Reportable 10/19/18 22:15 Large Platelets Not Reportable 10/19/18 22:15 Giant Platelets Not Reportable 10/19/18 22:15 Platelet Satelliting Not Reportable 10/19/18 22:15 Plt Morphology Comment Not Reportable 10/19/18 22:15 RBC Morphology Not Reportable 10/19/18 22:15 Dimorphic RBCs Not Reportable 10/19/18 22:15 Polychromasia Not Reportable 10/19/18 22:15 Hypochromasia Not Reportable 10/19/18 22:15 Poikilocytosis Not Reportable 10/19/18 22:15 Anisocytosis 1+ 10/19/18 22:15 Microcytosis Not Reportable 10/19/18 22:15 Macrocytosis Not Reportable 10/19/18 22:15 Spherocytes Not Reportable 10/19/18 22:15 Pappenheimer Bodies Not Reportable 10/19/18 22:15 Sickle Cells Not Reportable 10/19/18 22:15 Target Cells Not Reportable 10/19/18 22:15 Tear Drop Cells Not Reportable 10/19/18 22:15 Ovalocytes Not Reportable 10/19/18 22:15 Helmet Cells Not Reportable 10/19/18 22:15 [place] Bodies Not Reportable 10/19/18 22:15 [place] Rings Not Reportable 10/19/18 22:15 [place] Cells Not Reportable 10/19/18 22:15 Bite Cells Not Reportable 10/19/18 22:15 Crenated Cell Not Reportable 10/19/18 22:15 Elliptocytes Not Reportable 10/19/18 22:15 Acanthocytes (Spur) Not Reportable 10/19/18 22:15 Rouleaux Not Reportable 10/19/18 22:15 Hemoglobin C Crystals Not Reportable 10/19/18 22:15 Schistocytes Not Reportable 10/19/18 22:15 Malaria parasites Not Reportable 10/19/18 22:15 [place] Bodies Not Reportable 10/19/18 22:15 Hem Pathologist Commnt No 10/19/18 22:15 D-Dimer 850.67 ng/mlDDU (0-234) H 10/20/18 10:45 POC ABG pH 7.422 (7.35-7.45) 10/20/18 17:33 POC ABG pCO2 29.7 (35-45) L 10/20/18 17:33 POC ABG pO2 147 (80-105) H 10/20/18 17:33 POC ABG HCO3 19.4 10/20/18 17:33 POC ABG Total CO2 20 10/20/18 17:33 POC ABG O2 Sat 99 10/20/18 17:33 POC ABG Base Excess -5 10/20/18 17:33 FiO2 100 % 10/20/18 17:33 Sodium 132 mmol/L (137-145) L 10/19/18 22:15 Potassium 3.6 mmol/L (3.6-5.0) 10/21/18 16:17 Chloride 96.9 mmol/L (98-107) L 10/19/18 22:15 Carbon Dioxide 20 mmol/L (22-30) L 10/19/18 22:15 Anion Gap 18 mmol/L 10/19/18 22:15 BUN 6 mg/dL (7-17) L 10/19/18 22:15 Creatinine 0.6 mg/dL (0.7-1.2) L 10/19/18 22:15 Estimated GFR > 60 ml/min 10/19/18 22:15 BUN/Creatinine Ratio 10 % 10/19/18 22:15 Glucose 71 mg/dL (65-100) 10/19/18 22:15 Calcium 8.2 mg/dL (8.4-10.2) L 10/19/18 22:15 Magnesium 2.10 mg/dL (1.7-2.3) 10/21/18 16:17 Total Bilirubin 0.50 mg/dL (0.1-1.2) 10/19/18 22:15 AST 46 units/L (5-40) H 10/19/18 22:15 ALT 54 units/L (7-56) 10/19/18 22:15 Alkaline Phosphatase 159 units/L (35-129) H 10/19/18 22:15 Troponin T < 0.010 ng/mL (0.00-0.029) 10/20/18 10:45 Total Protein 5.8 g/dL (6.3-8.2) L 10/19/18 22:15 Albumin 3.2 g/dL (3.9-5) L 10/19/18 22:15 Albumin/Globulin Ratio 1.2 % 10/19/18 22:15 Urine Color [place] (Yellow) 10/19/18 22:15 Urine Turbidity Cloudy (Clear) 10/19/18 22:15 Urine pH 5.0 (5.0-7.0) 10/19/18 22:15 Ur Specific [place] 1.027 (1.003-1.030) 10/19/18 22:15 Urine Protein 100 mg/dl mg/dL (Negative) 10/19/18 22:15 Urine Glucose (UA) Neg mg/dL (Negative) 10/19/18 22:15 Urine Ketones Tr mg/dL (Negative) 10/19/18 22:15 Urine Blood Neg (Negative) 10/19/18 22:15 Urine Nitrite Neg (Negative) 10/19/18 22:15 Urine Bilirubin Neg (Negative) 10/19/18 22:15 Urine Urobilinogen 4.0 mg/dL (<2.0) 10/19/18 22:15 Ur Leukocyte Esterase Neg (Negative) 10/19/18 22:15 Urine WBC (Auto) 3.0 /HPF (0.0-6.0) 10/19/18 22:15 Urine RBC (Auto) 1.0 /HPF (0.0-6.0) 10/19/18 22:15 U Epithel Cells (Auto) 16.0 /HPF (0-13.0) H 10/19/18 22:15 Urine Bacteria (Auto) 1+ /HPF (Negative) 10/19/18 22:15 Urine Mucus 1+ /HPF 10/19/18 22:15 Influenza A (Rapid) Negative (Negative) 10/19/18 22:15 Influenza B (Rapid) Negative (Negative) 10/19/18 22:15 Blood Type A POSITIVE 10/20/18 13:47 Antibody Screen Negative 10/20/18 13:47
[2018-10-22] MEDS ORDERED: DILAUDID IV PRN (18:05)
[2018-10-23] MEDS: PROVENTIL IH SCH ×5 (00:15→19:13)
[2018-10-23] MEDS: XOPENEX IH SCH ×3 (01:46→19:12)
[2018-10-23] MEDS: D5LR 1,000 ML IV SCH ×3 (01:58→16:57)
[2018-10-23] MEDS: PEPCID IV SCH ×2 (09:26→22:05)
[2018-10-23] MEDS: SOLU-Medrol IV SCH ×2 (09:26→19:53)
[2018-10-23] MEDS: NORCO 5/325 PO PRN ×2 (09:26→19:57)
[2018-10-23] MEDS: CLEOCIN PO SCH ×3 (09:26→19:54)
[2018-10-23] MEDS: REGLAN IV PRN (09:32)
[2018-10-23] MEDS: PRENATAL VITAMIN PO SCH (10:00)
--- NOTE | 2018-10-23 11:22 | Progress Note ---
Assessment and Plan Assessment and plan: Diagnoses Acute asthma exacerbation Acute respiratory failure Hypokalemia at 33 weeks Anxiety Plan Clinically improving and off venturi mask today Steroids nebs, oxygen supplements Pulmonary consult considering the severity Repleted potassium, repeat potassium was normal care per ACLS SPECIALIST -Patient was given a few doses of Dilaudid for extreme anxiety, she has a grandmother was in hospice, and she is fighting with her baby shante. She is very anxious and taking shallow breaths, decided to give a narcotic instead of a benzodiazepine as the patient is already on [place]. And she was advised and warned the patient had both cross the placental barrier, she verbalized understanding. DVT prophylaxis per primary team Can move back to the ACLS SPECIALIST unit if continues to demonstrate improvement in am History Interval history: I cant breathe History of present illness: 28 YO Female with Mild Intermittent Asthma at 33 weeks Gestation. pw fever, chills, sob and wheezing Past History Past Medical History: other (Asthma) Bilateral lower extremity duplex negative for PE Patient seen and examined today clinically improving, sitting and tolerating diet without any distress. Hospitalist Physical - Physical exam Narrative exam: General.: Appears well, no distress, nontoxic HEENT: Moist mucous membranes, extraocular muscles intact, no lymphadenopathy Neck: supple Cardiac: S1-S2 heard Lungs: diminished air entry, wheezing abdomen: soft , nontender, gravid uterus, bowel sounds positive Extremities: no edema clubbing or cyanosis Skin: no rash or lesions Neurologic: no gross focal deficits Psych:No anxiety today, appropriate behavior, appropriate mood, corporative, judgment intact - Constitutional Vitals: Temp Pulse Resp BP Pulse Ox 98.1 F 101 H 12 112/41 99 10/23/18 08:00 10/23/18 10:20 10/23/18 10:20 10/23/18 10:20 10/23/18 10:20 General appearance: Present: mild distress Results - Labs CBC & Chem 7: 10/19/18 22:15 10/21/18 16:17 Labs: Laboratory Last Values WBC 11.0 K/mm3 (4.5-11.0) 10/19/18 22:15 RBC 3.16 M/mm3 (3.65-5.03) L 10/19/18 22:15 Hgb 9.6 gm/dl (10.1-14.3) L 10/19/18 22:15 Hct 27.8 % (30.3-42.9) L 10/19/18 22:15 MCV 88 fl (79-97) 10/19/18 22:15 MCH 30 pg (28-32) 10/19/18 22:15 MCHC 35 % (30-34) H 10/19/18 22:15 RDW 14.1 % (13.2-15.2) 10/19/18 22:15 Plt Count 229 K/mm3 (140-440) 10/19/18 22:15 Add Manual Diff Complete 10/19/18 22:15 Total Counted 100 10/19/18 22:15 Seg Neutrophils % Geriatric Care Manager 10/19/18 22:15 Seg Neuts % (Manual) 86.0 % (40.0-70.0) H 10/19/18 22:15 Band Neutrophils % 5.0 % 10/19/18 22:15 Lymphocytes % (Manual) 3.0 % (13.4-35.0) L 10/19/18 22:15 Reactive Lymphs % (Man) 0 % 10/19/18 22:15 Monocytes % (Manual) 6.0 % (0.0-7.3) 10/19/18 22:15 Eosinophils % (Manual) 0 % (0.0-4.3) 10/19/18 22:15 Basophils % (Manual) 0 % (0.0-1.8) 10/19/18 22:15 Metamyelocytes % 0 % 10/19/18 22:15 Myelocytes % 0 % 10/19/18 22:15 Promyelocytes % 0 % 10/19/18 22:15 Blast Cells % 0 % 10/19/18 22:15 Nucleated RBC % 2.0 % (0.0-0.9) H 10/19/18 22:15 Seg Neutrophils # Man 9.5 K/mm3 (1.8-7.7) H 10/19/18 22:15 Band Neutrophils # 0.6 K/mm3 10/19/18 22:15 Lymphocytes # (Manual) 0.3 K/mm3 (1.2-5.4) L 10/19/18 22:15 Abs React Lymphs (Man) 0.0 K/mm3 10/19/18 22:15 Monocytes # (Manual) 0.7 K/mm3 (0.0-0.8) 10/19/18 22:15 Eosinophils # (Manual) 0.0 K/mm3 (0.0-0.4) 10/19/18 22:15 Basophils # (Manual) 0.0 K/mm3 (0.0-0.1) 10/19/18 22:15 Metamyelocytes # 0.0 K/mm3 10/19/18 22:15 Myelocytes # 0.0 K/mm3 10/19/18 22:15 Promyelocytes # 0.0 K/mm3 10/19/18 22:15 Blast Cells # 0.0 K/mm3 10/19/18 22:15 WBC Morphology Not Reportable 10/19/18 22:15 Hypersegmented Neuts Not Reportable 10/19/18 22:15 Hyposegmented Neuts Not Reportable 10/19/18 22:15 Hypogranular Neuts Not Reportable 10/19/18 22:15 Smudge Cells Not Reportable 10/19/18 22:15 Toxic Granulation Not Reportable 10/19/18 22:15 Toxic Vacuolation Not Reportable 10/19/18 22:15 Dohle Bodies Not Reportable 10/19/18 22:15 Pelger-Huet Anomaly Not Reportable 10/19/18 22:15 Keely Rods Not Reportable 10/19/18 22:15 Platelet Estimate Appears normal 10/19/18 22:15 Clumped Platelets Not Reportable 10/19/18 22:15 Plt Clumps, EDTA Not Reportable 10/19/18 22:15 Large Platelets Not Reportable 10/19/18 22:15 Giant Platelets Not Reportable 10/19/18 22:15 Platelet Satelliting Not Reportable 10/19/18 22:15 Plt Morphology Comment Not Reportable 10/19/18 22:15 RBC Morphology Not Reportable 10/19/18 22:15 Dimorphic RBCs Not Reportable 10/19/18 22:15 Polychromasia Not Reportable 10/19/18 22:15 Hypochromasia Not Reportable 10/19/18 22:15 Poikilocytosis Not Reportable 10/19/18 22:15 Anisocytosis 1+ 10/19/18 22:15 Microcytosis Not Reportable 10/19/18 22:15 Macrocytosis Not Reportable 10/19/18 22:15 Spherocytes Not Reportable 10/19/18 22:15 Pappenheimer Bodies Not Reportable 10/19/18 22:15 Sickle Cells Not Reportable 10/19/18 22:15 Target Cells Not Reportable 10/19/18 22:15 Tear Drop Cells Not Reportable 10/19/18 22:15 Ovalocytes Not Reportable 10/19/18 22:15 Helmet Cells Not Reportable 10/19/18 22:15 [place] Bodies Not Reportable 10/19/18 22:15 [place] Rings Not Reportable 10/19/18 22:15 [place] Cells Not Reportable 10/19/18 22:15 Bite Cells Not Reportable 10/19/18 22:15 Crenated Cell Not Reportable 10/19/18 22:15 Elliptocytes Not Reportable 10/19/18 22:15 Acanthocytes (Spur) Not Reportable 10/19/18 22:15 Rouleaux Not Reportable 10/19/18 22:15 Hemoglobin C Crystals Not Reportable 10/19/18 22:15 Schistocytes Not Reportable 10/19/18 22:15 Malaria parasites Not Reportable 10/19/18 22:15 [place] Bodies Not Reportable 10/19/18 22:15 Hem Pathologist Commnt No 10/19/18 22:15 D-Dimer 850.67 ng/mlDDU (0-234) H 10/20/18 10:45 POC ABG pH 7.422 (7.35-7.45) 10/20/18 17:33 POC ABG pCO2 29.7 (35-45) L 10/20/18 17:33 POC ABG pO2 147 (80-105) H 10/20/18 17:33 POC ABG HCO3 19.4 10/20/18 17:33 POC ABG Total CO2 20 10/20/18 17:33 POC ABG O2 Sat 99 10/20/18 17:33 POC ABG Base Excess -5 10/20/18 17:33 FiO2 100 % 10/20/18 17:33 Sodium 132 mmol/L (137-145) L 10/19/18 22:15 Potassium 3.6 mmol/L (3.6-5.0) 10/21/18 16:17 Chloride 96.9 mmol/L (98-107) L 10/19/18 22:15 Carbon Dioxide 20 mmol/L (22-30) L 10/19/18 22:15 Anion Gap 18 mmol/L 10/19/18 22:15 BUN 6 mg/dL (7-17) L 10/19/18 22:15 Creatinine 0.6 mg/dL (0.7-1.2) L 10/19/18 22:15 Estimated GFR > 60 ml/min 10/19/18 22:15 BUN/Creatinine Ratio 10 % 10/19/18 22:15 Glucose 71 mg/dL (65-100) 10/19/18 22:15 Calcium 8.2 mg/dL (8.4-10.2) L 10/19/18 22:15 Magnesium 2.10 mg/dL (1.7-2.3) 10/21/18 16:17 Total Bilirubin 0.50 mg/dL (0.1-1.2) 10/19/18 22:15 AST 46 units/L (5-40) H 10/19/18 22:15 ALT 54 units/L (7-56) 10/19/18 22:15 Alkaline Phosphatase 159 units/L (35-129) H 10/19/18 22:15 Troponin T < 0.010 ng/mL (0.00-0.029) 10/20/18 10:45 Total Protein 5.8 g/dL (6.3-8.2) L 10/19/18 22:15 Albumin 3.2 g/dL (3.9-5) L 10/19/18 22:15 Albumin/Globulin Ratio 1.2 % 10/19/18 22:15 Urine Color [place] (Yellow) 10/19/18 22:15 Urine Turbidity Cloudy (Clear) 10/19/18 22:15 Urine pH 5.0 (5.0-7.0) 10/19/18 22:15 Ur Specific [place] 1.027 (1.003-1.030) 10/19/18 22:15 Urine Protein 100 mg/dl mg/dL (Negative) 10/19/18 22:15 Urine Glucose (UA) Neg mg/dL (Negative) 10/19/18 22:15 Urine Ketones Tr mg/dL (Negative) 10/19/18 22:15 Urine Blood Neg (Negative) 10/19/18 22:15 Urine Nitrite Neg (Negative) 10/19/18 22:15 Urine Bilirubin Neg (Negative) 10/19/18 22:15 Urine Urobilinogen 4.0 mg/dL (<2.0) 10/19/18 22:15 Ur Leukocyte Esterase Neg (Negative) 10/19/18 22:15 Urine WBC (Auto) 3.0 /HPF (0.0-6.0) 10/19/18 22:15 Urine RBC (Auto) 1.0 /HPF (0.0-6.0) 10/19/18 22:15 U Epithel Cells (Auto) 16.0 /HPF (0-13.0) H 10/19/18 22:15 Urine Bacteria (Auto) 1+ /HPF (Negative) 10/19/18 22:15 Urine Mucus 1+ /HPF 10/19/18 22:15 Influenza A (Rapid) Negative (Negative) 10/19/18 22:15 Influenza B (Rapid) Negative (Negative) 10/19/18 22:15 Blood Type A POSITIVE 10/20/18 13:47 Antibody Screen Negative 10/20/18 13:47
--- NOTE | 2018-10-23 19:00 | Consultation ---
History of Present Illness Consult date: 10/23/18 Requesting physician: JEROME LANDRY Reason for consult: asthma History of present illness: PULMONARY/CCM CONSULT NOTE (Full dictation # [id number]) Please see dictated notes for full details Past History Past Medical History: other (Asthma) Past Surgical History: No surgical history (reviewed) Social history: single. denies: smoking, alcohol abuse, prescription drug abuse Family history: no significant family history (reviewed) Medications and Allergies Allergies Allergy/AdvReac Type Severity Reaction Status Date / Time No Known Allergies Allergy Verified 02/13/18 08:19 Home Medications Medication Instructions Recorded Confirmed Last Taken Type Doxylamine Succinate/Vit B6 1 tab PO PRN 07/31/18 10/24/18 2 Days Ago History [Elsa Dr 10-10 mg Tablet] ~07/29/18 Promethazine 1 tab PO PRN PRN 07/31/18 10/24/18 2 Days Ago History ~07/29/18 HYDROcodone/APAP 5-325 [[place]ub[place] 1 each PO Q6HR PRN #5 tablet 08/01/18 10/24/18 10/18/18 10:00 Rx 5/325] Ondansetron (Nf) [Zofran TAB] 8 mg PO Q8HR PRN #30 tablet 10/07/18 10/24/18 10/18/18 10:00 Rx Acetaminophen/Codeine [Tylenol 1 tab PO Q6H PRN #12 tab 10/16/18 10/24/18 04/02/18 10:00 Rx /Codeine # 3 tab] Clindamycin [Clindamycin CAP] 300 mg PO Q8H 10 Days #30 cap 10/16/18 10/24/18 09/28/18 10:00 Rx Ondansetron [Zofran ODT TAB] 8 mg PO Q12HR PRN 10/24/18 10/24/18 10/18/18 10:00 History Active Meds: Active Medications Acetaminophen (Tylenol) 650 mg PO Q4H PRN PRN Reason: Pain MILD(1-3)/Fever >100.5/JAQUEZ Acetaminophen/Hydrocodone Bitart (Reubens 5/325) 2 each PO Q6H PRN PRN Reason: Pain, Moderate (4-6) Last Admin: 10/23/18 09:26 Dose: 2 each Documented by: Al Hydrox/Mg Hydrox/Simethicone (Alum-Mag Hydrox-Simeth [id number]/5ml) 30 ml PO Q8H PRN PRN Reason: Indigestion Last Admin: 10/22/18 18:19 Dose: 30 ml Documented by: Albuterol (Proventil) 2.5 mg IH Q4HRT [facility] Last Admin: 10/23/18 15:14 Dose: 2.5 mg Documented by: Clindamycin HCl (Cleocin) 300 mg PO TID [facility] Last Admin: 10/23/18 16:59 Dose: Not Given Documented by: Docusate Sodium (Colace) 100 mg PO Q12H PRN PRN Reason: Constipation Famotidine (Pepcid) 20 mg IV BID [facility] Stop: 10/23/18 23:59 Last Admin: 10/23/18 09:26 Dose: 20 mg Documented by: Famotidine (Pepcid) 20 mg PO BID [facility] Potassium Chloride 30 meq/ (Sodium Chloride) 1,015 mls @ 75 mls/hr IV DIRECT [facility] Last Admin: 10/20/18 05:48 Dose: 75 mls/hr Documented by: Dextrose/Lactated Ringer's (D5lr) 1,000 mls @ 125 mls/hr IV DIRECT [facility] Last Admin: 10/23/18 16:57 Dose: 125 mls/hr Documented by: Levalbuterol HCl (Xopenex) 0.63 mg IH Q8HRT [facility] Last Admin: 10/23/18 08:59 Dose: 0.63 mg Documented by: Methylprednisolone Sodium Succinate (Solu-Medrol) 125 mg IV Q12HR [facility] Last Admin: 10/23/18 09:26 Dose: 125 mg Documented by: Metoclopramide HCl (Reglan) 10 mg IV Q6H PRN PRN Reason: Nausea And Vomiting Last Admin: 10/23/18 09:32 Dose: 10 mg Documented by: Multivitamins/Iron/Calcium ( Vitamin) 1 each PO QDAY [facility] Last Admin: 10/23/18 10:00 Dose: Not Given Documented by: Ondansetron HCl (Zofran) 4 mg IV Q4H PRN PRN Reason: Nausea And Vomiting Last Admin: 10/22/18 21:53 Dose: 4 mg Documented by: Physical Examination Vital signs: Vital Signs Pulse BP 127 H 102/52 10/19/18 22:16 10/19/18 22:16 Results - Laboratory Findings CBC and BMP: 10/19/18 22:15 10/21/18 16:17 ABG POC ABG pH 7.422 (7.35-7.45) 10/20/18 17:33 POC ABG pCO2 29.7 (35-45) L 10/20/18 17:33 POC ABG pO2 147 (80-105) H 10/20/18 17:33 POC ABG HCO3 19.4 10/20/18 17:33 POC ABG Total CO2 20 10/20/18 17:33 POC ABG O2 Sat 99 10/20/18 17:33 PT/INR, D-dimer D-Dimer 850.67 ng/mlDDU (0-234) H 10/20/18 10:45 Abnormal lab findings: Abnormal Labs 10/19/18 10/19/18 10/19/18 22:15 22:15 22:15 RBC 3.16 L Hgb 9.6 L Hct 27.8 L MCHC 35 H Seg Neuts % (Manual) 86.0 H Lymphocytes % (Manual) 3.0 L Nucleated RBC % 2.0 H Seg Neutrophils # Man 9.5 H Lymphocytes # (Manual) 0.3 L D-Dimer POC ABG pH POC ABG pCO2 POC ABG pO2 Sodium 132 L Potassium 3.1 L Chloride 96.9 L Carbon Dioxide 20 L BUN 6 L Creatinine 0.6 L Calcium 8.2 L AST 46 H Alkaline Phosphatase 159 H Total Protein 5.8 L Albumin 3.2 L U Epithel Cells (Auto) 16.0 H 10/20/18 10/20/18 10/20/18 10:45 10:57 17:33 RBC Hgb Hct MCHC Seg Neuts % (Manual) Lymphocytes % (Manual) Nucleated RBC % Seg Neutrophils # Man Lymphocytes # (Manual) D-Dimer 850.67 H POC ABG pH 7.451 H POC ABG pCO2 25.8 L 29.7 L POC ABG pO2 65 L 147 H Sodium Potassium Chloride Carbon Dioxide BUN Creatinine Calcium AST Alkaline Phosphatase Total Protein Albumin U Epithel Cells (Auto)
[2018-10-23] MEDS: ZOFRAN IV PRN (19:53)
[2018-10-23] MEDS: ALUM-MAG HYDROX-SIMETH 200-200-20MG/5ML PO PRN (20:01)
[2018-10-24] MEDS: XOPENEX IH SCH ×4 (00:32→20:12)
[2018-10-24] MEDS: D5LR 1,000 ML IV SCH ×2 (00:32→08:29)
[2018-10-24] MEDS: NORCO 5/325 PO PRN ×2 (03:43→21:35)
[2018-10-24] MEDS: ZOFRAN IV PRN ×3 (03:43→20:29)
[2018-10-24] MEDS: SOLU-Medrol IV SCH ×2 (04:34→18:20)
[2018-10-24] MEDS: CLEOCIN PO SCH ×2 (08:29→18:20)
[2018-10-24] MEDS: PRENATAL VITAMIN PO SCH (09:41)
[2018-10-24] MEDS: PEPCID PO SCH ×2 (09:41→21:35)
--- NOTE | 2018-10-24 09:45 | Progress Note ---
Assessment and Plan - Patient Problems (1) Acute asthma exacerbation Current Visit: Yes Status: Acute Qualifiers: Asthma severity: moderate Asthma persistence: persistent Qualified Code(s): J45.41 - Moderate persistent asthma with (acute) exacerbation Plan to address problem: clinically improved transfer to L&D (2) Tooth abscess Current Visit: No Status: Acute Subjective - Subjective Date of service: 10/24/18 Principal diagnosis: asthma exacerbation, IUP at 33w3d Interval history: 28y/o @ 33+ weeks presents with acute asthma exacerbation. The patient has demonstrated significant clinical improvement. Sats>95% on RA. States her breathing is easier. Patient states her grandmother recently and she is experiencing anxiety and grief about her . Patient reports: movement normal, no new complaints, no loss of fluid, no vaginal bleeding, no contractions Objective - Vital Signs Vital Signs: Vital Signs - 12hr 10/23/18 10/23/18 10/23/18 21:50 22:00 22:10 Temperature Pulse Rate 102 H 98 H 95 H Pulse Rate [ Bilateral] Pulse Rate [ From Monitor] Respiratory 8 L 17 14 Rate Respiratory Rate [Bilateral ] Blood Pressure 126/68 126/68 126/68 O2 Sat by Pulse 98 98 97 Oximetry 10/23/18 10/23/18 10/23/18 22:20 22:30 22:40 Temperature Pulse Rate 83 79 88 Pulse Rate [ Bilateral] Pulse Rate [ From Monitor] Respiratory 12 13 15 Rate Respiratory Rate [Bilateral ] Blood Pressure 126/68 126/68 126/68 O2 Sat by Pulse 98 100 99 Oximetry 10/23/18 10/23/18 10/23/18 22:50 23:00 23:10 Temperature Pulse Rate 81 97 H 88 Pulse Rate [ Bilateral] Pulse Rate [ From Monitor] Respiratory 16 22 14 Rate Respiratory Rate [Bilateral ] Blood Pressure 126/68 126/68 126/68 O2 Sat by Pulse 98 99 98 Oximetry 10/23/18 10/23/18 10/23/18 23:20 23:30 23:40 Temperature Pulse Rate 86 96 H 98 H Pulse Rate [ Bilateral] Pulse Rate [ From Monitor] Respiratory 16 14 13 Rate Respiratory Rate [Bilateral ] Blood Pressure 126/68 126/68 O2 Sat by Pulse 98 97 98 Oximetry 10/23/18 10/24/18 10/24/18 23:50 00:00 00:01 Temperature 98.3 F Pulse Rate 94 H 86 Pulse Rate [ Bilateral] Pulse Rate [ 117 H From Monitor] Respiratory 13 11 L 13 Rate Respiratory Rate [Bilateral ] Blood Pressure O2 Sat by Pulse 97 94 99 Oximetry 10/24/18 10/24/18 10/24/18 00:10 00:11 00:20 Temperature Pulse Rate 89 Pulse Rate [ 98 H 112 H Bilateral] Pulse Rate [ From Monitor] Respiratory 15 Rate Respiratory 20 20 Rate [Bilateral ] Blood Pressure O2 Sat by Pulse 99 Oximetry 10/24/18 10/24/18 10/24/18 00:21 00:31 00:32 Temperature 98.3 F Pulse Rate 107 H 101 H Pulse Rate [ Bilateral] Pulse Rate [ From Monitor] Respiratory 15 13 Rate Respiratory Rate [Bilateral ] Blood Pressure O2 Sat by Pulse 98 99 Oximetry 10/24/18 10/24/18 10/24/18 00:41 00:51 01:01 Temperature Pulse Rate 80 86 92 H Pulse Rate [ Bilateral] Pulse Rate [ From Monitor] Respiratory 14 17 19 Rate Respiratory Rate [Bilateral ] Blood Pressure O2 Sat by Pulse 100 99 99 Oximetry 10/24/18 10/24/18 10/24/18 01:11 01:21 01:31 Temperature Pulse Rate 84 83 100 H Pulse Rate [ Bilateral] Pulse Rate [ From Monitor] Respiratory 18 16 17 Rate Respiratory Rate [Bilateral ] Blood Pressure O2 Sat by Pulse 99 99 98 Oximetry 10/24/18 10/24/18 10/24/18 01:41 01:51 02:01 Temperature Pulse Rate 84 80 82 Pulse Rate [ Bilateral] Pulse Rate [ From Monitor] Respiratory 12 16 16 Rate Respiratory Rate [Bilateral ] Blood Pressure O2 Sat by Pulse 100 100 99 Oximetry 10/24/18 10/24/18 10/24/18 02:11 02:21 02:31 Temperature Pulse Rate 81 85 109 H Pulse Rate [ Bilateral] Pulse Rate [ From Monitor] Respiratory 13 15 12 Rate Respiratory Rate [Bilateral ] Blood Pressure O2 Sat by Pulse 99 97 98 Oximetry 10/24/18 10/24/18 10/24/18 02:41 02:51 03:01 Temperature Pulse Rate 93 H 80 82 Pulse Rate [ Bilateral] Pulse Rate [ From Monitor] Respiratory 12 17 18 Rate Respiratory Rate [Bilateral ] Blood Pressure O2 Sat by Pulse 99 100 98 Oximetry 10/24/18 10/24/18 10/24/18 03:11 03:21 03:31 Temperature Pulse Rate 88 87 90 Pulse Rate [ Bilateral] Pulse Rate [ From Monitor] Respiratory 14 16 15 Rate Respiratory Rate [Bilateral ] Blood Pressure O2 Sat by Pulse 97 97 98 Oximetry 10/24/18 10/24/18 10/24/18 03:41 03:51 04:00 Temperature 98.0 F Pulse Rate 89 86 Pulse Rate [ Bilateral] Pulse Rate [ 117 H From Monitor] Respiratory 14 10 L 15 Rate Respiratory Rate [Bilateral ] Blood Pressure O2 Sat by Pulse 96 99 100 Oximetry 10/24/18 10/24/18 10/24/18 04:01 04:11 04:21 Temperature Pulse Rate 78 103 H 88 Pulse Rate [ Bilateral] Pulse Rate [ From Monitor] Respiratory 14 17 16 Rate Respiratory Rate [Bilateral ] Blood Pressure O2 Sat by Pulse 100 97 98 Oximetry 10/24/18 10/24/18 10/24/18 04:31 04:41 04:51 Temperature Pulse Rate 90 88 88 Pulse Rate [ Bilateral] Pulse Rate [ From Monitor] Respiratory 17 14 12 Rate Respiratory Rate [Bilateral ] Blood Pressure O2 Sat by Pulse 97 95 98 Oximetry 10/24/18 10/24/18 10/24/18 05:01 05:11 05:21 Temperature Pulse Rate 114 H 109 H 105 H Pulse Rate [ Bilateral] Pulse Rate [ From Monitor] Respiratory 14 14 12 Rate Respiratory Rate [Bilateral ] Blood Pressure O2 Sat by Pulse 98 98 98 Oximetry 10/24/18 10/24/18 10/24/18 05:31 05:41 05:51 Temperature Pulse Rate 98 H 101 H 98 H Pulse Rate [ Bilateral] Pulse Rate [ From Monitor] Respiratory 24 16 15 Rate Respiratory Rate [Bilateral ] Blood Pressure O2 Sat by Pulse 97 97 98 Oximetry 10/24/18 10/24/18 10/24/18 06:01 06:11 06:21 Temperature Pulse Rate 104 H 91 H 90 Pulse Rate [ Bilateral] Pulse Rate [ From Monitor] Respiratory 12 10 L 13 Rate Respiratory Rate [Bilateral ] Blood Pressure O2 Sat by Pulse 99 97 97 Oximetry 10/24/18 10/24/18 10/24/18 06:31 06:41 06:51 Temperature Pulse Rate 118 H 109 H 102 H Pulse Rate [ Bilateral] Pulse Rate [ From Monitor] Respiratory 14 11 L 15 Rate Respiratory Rate [Bilateral ] Blood Pressure O2 Sat by Pulse 98 100 98 Oximetry - Labs Labs: Abnormal Labs 10/19/18 10/19/18 10/19/18 22:15 22:15 22:15 RBC 3.16 L Hgb 9.6 L Hct 27.8 L MCHC 35 H Seg Neuts % (Manual) 86.0 H Lymphocytes % (Manual) 3.0 L Nucleated RBC % 2.0 H Seg Neutrophils # Man 9.5 H Lymphocytes # (Manual) 0.3 L D-Dimer POC ABG pH POC ABG pCO2 POC ABG pO2 Sodium 132 L Potassium 3.1 L Chloride 96.9 L Carbon Dioxide 20 L BUN 6 L Creatinine 0.6 L Calcium 8.2 L AST 46 H Alkaline Phosphatase 159 H Total Protein 5.8 L Albumin 3.2 L U Epithel Cells (Auto) 16.0 H 10/20/18 10/20/18 10/20/18 10:45 10:57 17:33 RBC Hgb Hct MCHC Seg Neuts % (Manual) Lymphocytes % (Manual) Nucleated RBC % Seg Neutrophils # Man Lymphocytes # (Manual) D-Dimer 850.67 H POC ABG pH 7.451 H POC ABG pCO2 25.8 L 29.7 L POC ABG pO2 65 L 147 H Sodium Potassium Chloride Carbon Dioxide BUN Creatinine Calcium AST Alkaline Phosphatase Total Protein Albumin U Epithel Cells (Auto)
[2018-10-24] MEDS ORDERED: XANAX PO PRN (10:30)
[2018-10-24] MEDS ORDERED: D5LR 1,000 ML IV ONE (11:13)
--- NOTE | 2018-10-24 12:11 | Progress Note ---
Assessment and Plan Assessment and plan: Diagnoses Acute asthma exacerbation Acute respiratory failure Hypokalemia at 33 weeks Anxiety Plan Clinically improving and off venturi mask today Steroids nebs, oxygen supplements Pulmonary consult considering the severity Repleted potassium, repeat potassium was normal care per ONCOLOGY CONSULTANT -Patient was given a few doses of Dilaudid for extreme anxiety, she has a grandmother was in hospice, and she is fighting with her baby shante. She is very anxious and taking shallow breaths, decided to give a narcotic instead of a benzodiazepine as the patient is already on [place]. And she was advised and warned the patient had both cross the placental barrier, she verbalized understanding. DVT prophylaxis per primary team Can move back to the ONCOLOGY CONSULTANT unit if continues to demonstrate improvement in am History Interval history: I cant breathe History of present illness: 28 YO Female with Mild Intermittent Asthma at 33 weeks Gestation. pw fever, chills, sob and wheezing Past History Past Medical History: other (Asthma) Bilateral lower extremity duplex negative for PE Patient seen and examined today clinically improving, family visitin, sitting and tolerating diet without any distress. Hospitalist Physical - Physical exam Narrative exam: General.: Appears well, no distress, nontoxic HEENT: Moist mucous membranes, extraocular muscles intact, no lymphadenopathy Neck: supple Cardiac: S1-S2 heard Lungs: diminished air entry, wheezing abdomen: soft , nontender, gravid uterus, bowel sounds positive Extremities: no edema clubbing or cyanosis Skin: no rash or lesions Neurologic: no gross focal deficits Psych:No anxiety today, appropriate behavior, appropriate mood, corporative, judgment intact - Constitutional Vitals: Temp Pulse Resp BP Pulse Ox 97.8 F 87 13 121/61 94 10/24/18 08:00 10/24/18 12:08 10/24/18 10:21 10/24/18 10:21 10/24/18 12:08 General appearance: Present: mild distress Results - Labs CBC & Chem 7: 10/19/18 22:15 10/21/18 16:17 Labs: Laboratory Last Values WBC 11.0 K/mm3 (4.5-11.0) 10/19/18 22:15 RBC 3.16 M/mm3 (3.65-5.03) L 10/19/18 22:15 Hgb 9.6 gm/dl (10.1-14.3) L 10/19/18 22:15 Hct 27.8 % (30.3-42.9) L 10/19/18 22:15 MCV 88 fl (79-97) 10/19/18 22:15 MCH 30 pg (28-32) 10/19/18 22:15 MCHC 35 % (30-34) H 10/19/18 22:15 RDW 14.1 % (13.2-15.2) 10/19/18 22:15 Plt Count 229 K/mm3 (140-440) 10/19/18 22:15 Add Manual Diff Complete 10/19/18 22:15 Total Counted 100 10/19/18 22:15 Seg Neutrophils % Postal Inspector 10/19/18 22:15 Seg Neuts % (Manual) 86.0 % (40.0-70.0) H 10/19/18 22:15 Band Neutrophils % 5.0 % 10/19/18 22:15 Lymphocytes % (Manual) 3.0 % (13.4-35.0) L 10/19/18 22:15 Reactive Lymphs % (Man) 0 % 10/19/18 22:15 Monocytes % (Manual) 6.0 % (0.0-7.3) 10/19/18 22:15 Eosinophils % (Manual) 0 % (0.0-4.3) 10/19/18 22:15 Basophils % (Manual) 0 % (0.0-1.8) 10/19/18 22:15 Metamyelocytes % 0 % 10/19/18 22:15 Myelocytes % 0 % 10/19/18 22:15 Promyelocytes % 0 % 10/19/18 22:15 Blast Cells % 0 % 10/19/18 22:15 Nucleated RBC % 2.0 % (0.0-0.9) H 10/19/18 22:15 Seg Neutrophils # Man 9.5 K/mm3 (1.8-7.7) H 10/19/18 22:15 Band Neutrophils # 0.6 K/mm3 10/19/18 22:15 Lymphocytes # (Manual) 0.3 K/mm3 (1.2-5.4) L 10/19/18 22:15 Abs React Lymphs (Man) 0.0 K/mm3 10/19/18 22:15 Monocytes # (Manual) 0.7 K/mm3 (0.0-0.8) 10/19/18 22:15 Eosinophils # (Manual) 0.0 K/mm3 (0.0-0.4) 10/19/18 22:15 Basophils # (Manual) 0.0 K/mm3 (0.0-0.1) 10/19/18 22:15 Metamyelocytes # 0.0 K/mm3 10/19/18 22:15 Myelocytes # 0.0 K/mm3 10/19/18 22:15 Promyelocytes # 0.0 K/mm3 10/19/18 22:15 Blast Cells # 0.0 K/mm3 10/19/18 22:15 WBC Morphology Not Reportable 10/19/18 22:15 Hypersegmented Neuts Not Reportable 10/19/18 22:15 Hyposegmented Neuts Not Reportable 10/19/18 22:15 Hypogranular Neuts Not Reportable 10/19/18 22:15 Smudge Cells Not Reportable 10/19/18 22:15 Toxic Granulation Not Reportable 10/19/18 22:15 Toxic Vacuolation Not Reportable 10/19/18 22:15 Dohle Bodies Not Reportable 10/19/18 22:15 Pelger-Huet Anomaly Not Reportable 10/19/18 22:15 Keely Rods Not Reportable 10/19/18 22:15 Platelet Estimate Appears normal 10/19/18 22:15 Clumped Platelets Not Reportable 10/19/18 22:15 Plt Clumps, EDTA Not Reportable 10/19/18 22:15 Large Platelets Not Reportable 10/19/18 22:15 Giant Platelets Not Reportable 10/19/18 22:15 Platelet Satelliting Not Reportable 10/19/18 22:15 Plt Morphology Comment Not Reportable 10/19/18 22:15 RBC Morphology Not Reportable 10/19/18 22:15 Dimorphic RBCs Not Reportable 10/19/18 22:15 Polychromasia Not Reportable 10/19/18 22:15 Hypochromasia Not Reportable 10/19/18 22:15 Poikilocytosis Not Reportable 10/19/18 22:15 Anisocytosis 1+ 10/19/18 22:15 Microcytosis Not Reportable 10/19/18 22:15 Macrocytosis Not Reportable 10/19/18 22:15 Spherocytes Not Reportable 10/19/18 22:15 Pappenheimer Bodies Not Reportable 10/19/18 22:15 Sickle Cells Not Reportable 10/19/18 22:15 Target Cells Not Reportable 10/19/18 22:15 Tear Drop Cells Not Reportable 10/19/18 22:15 Ovalocytes Not Reportable 10/19/18 22:15 Helmet Cells Not Reportable 10/19/18 22:15 Walker-Ralston Bodies Not Reportable 10/19/18 22:15 [place] Rings Not Reportable 10/19/18 22:15 Ira Cells Not Reportable 10/19/18 22:15 Bite Cells Not Reportable 10/19/18 22:15 Crenated Cell Not Reportable 10/19/18 22:15 Elliptocytes Not Reportable 10/19/18 22:15 Acanthocytes (Spur) Not Reportable 10/19/18 22:15 Rouleaux Not Reportable 10/19/18 22:15 Hemoglobin C Crystals Not Reportable 10/19/18 22:15 Schistocytes Not Reportable 10/19/18 22:15 Malaria parasites Not Reportable 10/19/18 22:15 [place] Bodies Not Reportable 10/19/18 22:15 Hem Pathologist Commnt No 10/19/18 22:15 D-Dimer 850.67 ng/mlDDU (0-234) H 10/20/18 10:45 POC ABG pH 7.422 (7.35-7.45) 10/20/18 17:33 POC ABG pCO2 29.7 (35-45) L 10/20/18 17:33 POC ABG pO2 147 (80-105) H 10/20/18 17:33 POC ABG HCO3 19.4 10/20/18 17:33 POC ABG Total CO2 20 10/20/18 17:33 POC ABG O2 Sat 99 10/20/18 17:33 POC ABG Base Excess -5 10/20/18 17:33 FiO2 100 % 10/20/18 17:33 Sodium 132 mmol/L (137-145) L 10/19/18 22:15 Potassium 3.6 mmol/L (3.6-5.0) 10/21/18 16:17 Chloride 96.9 mmol/L (98-107) L 10/19/18 22:15 Carbon Dioxide 20 mmol/L (22-30) L 10/19/18 22:15 Anion Gap 18 mmol/L 10/19/18 22:15 BUN 6 mg/dL (7-17) L 10/19/18 22:15 Creatinine 0.6 mg/dL (0.7-1.2) L 10/19/18 22:15 Estimated GFR > 60 ml/min 10/19/18 22:15 BUN/Creatinine Ratio 10 % 10/19/18 22:15 Glucose 71 mg/dL (65-100) 10/19/18 22:15 Calcium 8.2 mg/dL (8.4-10.2) L 10/19/18 22:15 Magnesium 2.10 mg/dL (1.7-2.3) 10/21/18 16:17 Total Bilirubin 0.50 mg/dL (0.1-1.2) 10/19/18 22:15 AST 46 units/L (5-40) H 10/19/18 22:15 ALT 54 units/L (7-56) 10/19/18 22:15 Alkaline Phosphatase 159 units/L (35-129) H 10/19/18 22:15 Troponin T < 0.010 ng/mL (0.00-0.029) 10/20/18 10:45 Total Protein 5.8 g/dL (6.3-8.2) L 10/19/18 22:15 Albumin 3.2 g/dL (3.9-5) L 10/19/18 22:15 Albumin/Globulin Ratio 1.2 % 10/19/18 22:15 Urine Color [place] (Yellow) 10/19/18 22:15 Urine Turbidity Cloudy (Clear) 10/19/18 22:15 Urine pH 5.0 (5.0-7.0) 10/19/18 22:15 Ur Specific [place] 1.027 (1.003-1.030) 10/19/18 22:15 Urine Protein 100 mg/dl mg/dL (Negative) 10/19/18 22:15 Urine Glucose (UA) Neg mg/dL (Negative) 10/19/18 22:15 Urine Ketones Tr mg/dL (Negative) 10/19/18 22:15 Urine Blood Neg (Negative) 10/19/18 22:15 Urine Nitrite Neg (Negative) 10/19/18 22:15 Urine Bilirubin Neg (Negative) 10/19/18 22:15 Urine Urobilinogen 4.0 mg/dL (<2.0) 10/19/18 22:15 Ur Leukocyte Esterase Neg (Negative) 10/19/18 22:15 Urine WBC (Auto) 3.0 /HPF (0.0-6.0) 10/19/18 22:15 Urine RBC (Auto) 1.0 /HPF (0.0-6.0) 10/19/18 22:15 U Epithel Cells (Auto) 16.0 /HPF (0-13.0) H 10/19/18 22:15 Urine Bacteria (Auto) 1+ /HPF (Negative) 10/19/18 22:15 Urine Mucus 1+ /HPF 10/19/18 22:15 Influenza A (Rapid) Negative (Negative) 10/19/18 22:15 Influenza B (Rapid) Negative (Negative) 10/19/18 22:15 Blood Type A POSITIVE 10/20/18 13:47 Antibody Screen Negative 10/20/18 13:47
[2018-10-24] MEDS ORDERED: XANAX ONE (13:16)
--- NOTE | 2018-10-24 14:01 | Progress Note ---
Assessment and Plan Patient still complaining shortness of breath and cough.No acute respiratory distress.Patient is on 1 litre O2. O2 saturation 97%.Patients venous doppler studies pending. Patients D Dimer elevated.Recommend perfusion lungscan also. - Patient Problems (1) Acute asthma exacerbation Current Visit: Yes Status: Acute Qualifiers: Asthma severity: moderate Asthma persistence: persistent Qualified Code(s): J45.41 - Moderate persistent asthma with (acute) exacerbation Plan to address problem: O2 2 litres via nasal canula. Xopenex aerosol treatments q 8 hours. Continue I/V solumedrol. Continue clindamycin. continue famotidine. Recommend perfusion lung scan. (2) Respiratory failure Current Visit: Yes Status: Acute Qualifiers: Chronicity: acute Respiratory failure complication: hypoxia Qualified Cod e(s): J96.01 - Acute respiratory failure with hypoxia Plan to address problem: O2 2 litres via nasal canula. Xopenex aerosol treatments q 8 hours. Continue I/V solumedrol. Continue clindamycin. continue famotidine. Recommend ventilation perfusion scan. (3) Tooth abscess Current Visit: No Status: Acute Plan to address problem: Patient is on clindamycin. Subjective Date of service: 10/24/18 Principal diagnosis: asthma exacerbation, IUP at 33w3d Interval history: Patient still complaining shortness of breath and cough.No acute respiratory distress.Patient is on 1 litre O2. O2 saturation 97%.Patients venous doppler studies pending. Patients D Dimer elevated.Recommend perfusion lungscan also. Objective Vital Signs - 12hr 10/24/18 10/24/18 10/24/18 02:11 02:21 02:31 Temperature Pulse Rate 81 85 109 H Pulse Rate [ Bilateral] Pulse Rate [ From Monitor] Respiratory 13 15 12 Rate Respiratory Rate [Bilateral ] Blood Pressure O2 Sat by Pulse 99 97 98 Oximetry 10/24/18 10/24/18 10/24/18 02:41 02:51 03:01 Temperature Pulse Rate 93 H 80 82 Pulse Rate [ Bilateral] Pulse Rate [ From Monitor] Respiratory 12 17 18 Rate Respiratory Rate [Bilateral ] Blood Pressure O2 Sat by Pulse 99 100 98 Oximetry 10/24/18 10/24/18 10/24/18 03:11 03:21 03:31 Temperature Pulse Rate 88 87 90 Pulse Rate [ Bilateral] Pulse Rate [ From Monitor] Respiratory 14 16 15 Rate Respiratory Rate [Bilateral ] Blood Pressure O2 Sat by Pulse 97 97 98 Oximetry 10/24/18 10/24/18 10/24/18 03:41 03:51 04:00 Temperature 98.0 F Pulse Rate 89 86 Pulse Rate [ Bilateral] Pulse Rate [ 117 H From Monitor] Respiratory 14 10 L 15 Rate Respiratory Rate [Bilateral ] Blood Pressure O2 Sat by Pulse 96 99 100 Oximetry 10/24/18 10/24/18 10/24/18 04:01 04:11 04:21 Temperature Pulse Rate 78 103 H 88 Pulse Rate [ Bilateral] Pulse Rate [ From Monitor] Respiratory 14 17 16 Rate Respiratory Rate [Bilateral ] Blood Pressure O2 Sat by Pulse 100 97 98 Oximetry 10/24/18 10/24/18 10/24/18 04:31 04:41 04:51 Temperature Pulse Rate 90 88 88 Pulse Rate [ Bilateral] Pulse Rate [ From Monitor] Respiratory 17 14 12 Rate Respiratory Rate [Bilateral ] Blood Pressure O2 Sat by Pulse 97 95 98 Oximetry 10/24/18 10/24/18 10/24/18 05:01 05:11 05:21 Temperature Pulse Rate 114 H 109 H 105 H Pulse Rate [ Bilateral] Pulse Rate [ From Monitor] Respiratory 14 14 12 Rate Respiratory Rate [Bilateral ] Blood Pressure O2 Sat by Pulse 98 98 98 Oximetry 10/24/18 10/24/18 10/24/18 05:31 05:41 05:51 Temperature Pulse Rate 98 H 101 H 98 H Pulse Rate [ Bilateral] Pulse Rate [ From Monitor] Respiratory 24 16 15 Rate Respiratory Rate [Bilateral ] Blood Pressure O2 Sat by Pulse 97 97 98 Oximetry 10/24/18 10/24/18 10/24/18 06:01 06:11 06:21 Temperature Pulse Rate 104 H 91 H 90 Pulse Rate [ Bilateral] Pulse Rate [ From Monitor] Respiratory 12 10 L 13 Rate Respiratory Rate [Bilateral ] Blood Pressure O2 Sat by Pulse 99 97 97 Oximetry 10/24/18 10/24/18 10/24/18 06:31 06:41 06:51 Temperature Pulse Rate 118 H 109 H 102 H Pulse Rate [ Bilateral] Pulse Rate [ From Monitor] Respiratory 14 11 L 15 Rate Respiratory Rate [Bilateral ] Blood Pressure O2 Sat by Pulse 98 100 98 Oximetry 10/24/18 10/24/18 10/24/18 07:01 07:11 07:21 Temperature Pulse Rate 89 85 88 Pulse Rate [ Bilateral] Pulse Rate [ From Monitor] Respiratory 15 17 16 Rate Respiratory Rate [Bilateral ] Blood Pressure O2 Sat by Pulse 100 97 96 Oximetry 10/24/18 10/24/18 10/24/18 07:31 07:41 07:50 Temperature Pulse Rate 85 86 Pulse Rate [ 88 Bilateral] Pulse Rate [ From Monitor] Respiratory 14 14 Rate Respiratory 18 Rate [Bilateral ] Blood Pressure 122/67 O2 Sat by Pulse 97 98 Oximetry 10/24/18 10/24/18 10/24/18 07:51 08:00 08:11 Temperature 97.8 F Pulse Rate 83 92 H 114 H Pulse Rate [ 87 Bilateral] Pulse Rate [ 85 From Monitor] Respiratory 13 19 16 Rate Respiratory 18 Rate [Bilateral ] Blood Pressure 122/67 120/66 120/66 O2 Sat by Pulse 99 98 100 Oximetry 10/24/18 10/24/18 10/24/18 08:21 08:31 08:41 Temperature Pulse Rate 96 H 110 H 98 H Pulse Rate [ Bilateral] Pulse Rate [ From Monitor] Respiratory 15 13 14 Rate Respiratory Rate [Bilateral ] Blood Pressure 120/66 120/66 120/66 O2 Sat by Pulse 99 99 98 Oximetry 10/24/18 10/24/18 10/24/18 08:51 09:00 09:11 Temperature Pulse Rate 92 H 96 H 95 H Pulse Rate [ Bilateral] Pulse Rate [ From Monitor] Respiratory 18 16 15 Rate Respiratory Rate [Bilateral ] Blood Pressure 120/66 121/61 121/61 O2 Sat by Pulse 96 97 95 Oximetry 10/24/18 10/24/18 10/24/18 09:21 09:31 09:41 Temperature Pulse Rate 93 H 93 H 96 H Pulse Rate [ Bilateral] Pulse Rate [ From Monitor] Respiratory 17 15 17 Rate Respiratory Rate [Bilateral ] Blood Pressure 121/61 121/61 121/61 O2 Sat by Pulse 96 95 98 Oximetry 10/24/18 10/24/18 10/24/18 09:51 10:00 10:01 Temperature Pulse Rate 104 H 94 H Pulse Rate [ Bilateral] Pulse Rate [ From Monitor] Respiratory 15 17 Rate Respiratory Rate [Bilateral ] Blood Pressure 121/61 121/61 O2 Sat by Pulse 96 97 98 Oximetry 10/24/18 10/24/18 10/24/18 10:11 10:21 12:05 Temperature Pulse Rate 96 H 88 83 Pulse Rate [ Bilateral] Pulse Rate [ From Monitor] Respiratory 15 13 Rate Respiratory Rate [Bilateral ] Blood Pressure 121/61 121/61 O2 Sat by Pulse 97 98 95 Oximetry 10/24/18 10/24/18 10/24/18 12:08 12:10 12:13 Temperature Pulse Rate 87 86 86 Pulse Rate [ Bilateral] Pulse Rate [ From Monitor] Respiratory Rate Respiratory Rate [Bilateral ] Blood Pressure O2 Sat by Pulse 94 94 94 Oximetry 10/24/18 10/24/18 10/24/18 12:15 12:20 12:25 Temperature Pulse Rate 85 86 89 Pulse Rate [ Bilateral] Pulse Rate [ From Monitor] Respiratory Rate Respiratory Rate [Bilateral ] Blood Pressure O2 Sat by Pulse 94 94 95 Oximetry 10/24/18 10/24/18 10/24/18 12:30 12:31 12:35 Temperature Pulse Rate 90 87 87 Pulse Rate [ Bilateral] Pulse Rate [ From Monitor] Respiratory Rate Respiratory Rate [Bilateral ] Blood Pressure O2 Sat by Pulse 95 94 94 Oximetry 10/24/18 10/24/18 10/24/18 12:40 12:42 12:58 Temperature Pulse Rate 90 89 86 Pulse Rate [ Bilateral] Pulse Rate [ From Monitor] Respiratory Rate Respiratory Rate [Bilateral ] Blood Pressure O2 Sat by Pulse 94 94 95 Oximetry Constitutional: no acute distress, alert Eyes: non-icteric ENT: oropharynx moist Neck: supple, no lymphadenopathy Ascultation: Bilateral: diminished breath sounds Cardiovascular: regular rate and rhythm Gastrointestinal: normoactive bowel sounds, soft, non-tender Integumentary: normal Extremities: no cyanosis, no edema Neurologic: normal mental status, non-focal exam, pupils equal and round, CN II- XII normal Psychiatric: depressed CBC and BMP: 10/19/18 22:15 10/21/18 16:17 ABG, PT/INR, D-dimer: ABG POC ABG pH 7.422 (7.35-7.45) 10/20/18 17:33 POC ABG pCO2 29.7 (35-45) L 10/20/18 17:33 POC ABG pO2 147 (80-105) H 10/20/18 17:33 POC ABG HCO3 19.4 10/20/18 17:33 POC ABG Total CO2 20 10/20/18 17:33 POC ABG O2 Sat 99 10/20/18 17:33 PT/INR, D-dimer D-Dimer 850.67 ng/mlDDU (0-234) H 10/20/18 10:45 Abnormal lab findings: Abnormal Labs 10/19/18 10/19/18 10/19/18 22:15 22:15 22:15 RBC 3.16 L Hgb 9.6 L Hct 27.8 L MCHC 35 H Seg Neuts % (Manual) 86.0 H Lymphocytes % (Manual) 3.0 L Nucleated RBC % 2.0 H Seg Neutrophils # Man 9.5 H Lymphocytes # (Manual) 0.3 L D-Dimer POC ABG pH POC ABG pCO2 POC ABG pO2 Sodium 132 L Potassium 3.1 L Chloride 96.9 L Carbon Dioxide 20 L BUN 6 L Creatinine 0.6 L Calcium 8.2 L AST 46 H Alkaline Phosphatase 159 H Total Protein 5.8 L Albumin 3.2 L U Epithel Cells (Auto) 16.0 H 10/20/18 10/20/18 10/20/18 10:45 10:57 17:33 RBC Hgb Hct MCHC Seg Neuts % (Manual) Lymphocytes % (Manual) Nucleated RBC % Seg Neutrophils # Man Lymphocytes # (Manual) D-Dimer 850.67 H POC ABG pH 7.451 H POC ABG pCO2 25.8 L 29.7 L POC ABG pO2 65 L 147 H Sodium Potassium Chloride Carbon Dioxide BUN Creatinine Calcium AST Alkaline Phosphatase Total Protein Albumin U Epithel Cells (Auto) Chest x-ray: report reviewed (Reported. No acute cardiopulmonary process.), image reviewed Additional Studies: Venous doppler studies of legs, results pending.
[2018-10-25] MEDS: SOLU-Medrol IV SCH ×3 (02:50→18:54)
[2018-10-25] MEDS: CLEOCIN PO SCH ×3 (02:51→17:41)
--- NOTE | 2018-10-25 08:09 | Progress Note ---
Assessment and Plan - Patient Problems (1) Acute asthma exacerbation Current Visit: Yes Status: Acute Qualifiers: Asthma severity: moderate Asthma persistence: persistent Qualified Code(s): J45.41 - Moderate persistent asthma with (acute) exacerbation Plan to address problem: awaiting further evaluation from pulmonary (2) Tooth abscess Current Visit: No Status: Acute Subjective - Subjective Date of service: 10/25/18 Principal diagnosis: asthma exacerbation, IUP at 33w3d Interval history: 28y/o @ 33+5 weeks presents with acute asthma exacerbation. Pulmonary has recommended that patient receive perfusion lung scan. Patient has had improvement in symptoms. Not unusual to see an increase in D-dimer in . Will proceed to rule out PE in patient. Spoke with radiology on doppler study report. Tech states she will contact radiologist to expedite the report. Obstetrically the patient is stable. 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 Patient reports: movement normal, no new complaints, no loss of fluid, no vaginal bleeding, no contractions Objective - Vital Signs Vital Signs: Vital Signs - 12hr 10/24/18 10/24/18 10/24/18 20:10 20:14 20:15 Temperature 98.2 F Pulse Rate 84 Pulse Rate [ 90 Bilateral] Respiratory 18 Rate Respiratory 16 Rate [Bilateral ] Blood Pressure 139/75 O2 Sat by Pulse Oximetry 10/24/18 10/24/18 10/25/18 20:19 20:21 00:00 Temperature Pulse Rate 95 H Pulse Rate [ 92 H Bilateral] Respiratory Rate Respiratory 16 Rate [Bilateral ] Blood Pressure 119/69 O2 Sat by Pulse 96 Oximetry 10/25/18 10/25/18 10/25/18 00:02 02:55 02:56 Temperature 98.2 F 98.4 F Pulse Rate 86 Pulse Rate [ Bilateral] Respiratory 18 18 Rate Respiratory Rate [Bilateral ] Blood Pressure 124/61 O2 Sat by Pulse Oximetry - Labs Labs: Abnormal Labs 10/19/18 10/19/18 10/19/18 22:15 22:15 22:15 RBC 3.16 L Hgb 9.6 L Hct 27.8 L MCHC 35 H Seg Neuts % (Manual) 86.0 H Lymphocytes % (Manual) 3.0 L Nucleated RBC % 2.0 H Seg Neutrophils # Man 9.5 H Lymphocytes # (Manual) 0.3 L D-Dimer POC ABG pH POC ABG pCO2 POC ABG pO2 Sodium 132 L Potassium 3.1 L Chloride 96.9 L Carbon Dioxide 20 L BUN 6 L Creatinine 0.6 L Calcium 8.2 L AST 46 H Alkaline Phosphatase 159 H Total Protein 5.8 L Albumin 3.2 L U Epithel Cells (Auto) 16.0 H 10/20/18 10/20/18 10/20/18 10:45 10:57 17:33 RBC Hgb Hct MCHC Seg Neuts % (Manual) Lymphocytes % (Manual) Nucleated RBC % Seg Neutrophils # Man Lymphocytes # (Manual) D-Dimer 850.67 H POC ABG pH 7.451 H POC ABG pCO2 25.8 L 29.7 L POC ABG pO2 65 L 147 H Sodium Potassium Chloride Carbon Dioxide BUN Creatinine Calcium AST Alkaline Phosphatase Total Protein Albumin U Epithel Cells (Auto)
[2018-10-25] MEDS ORDERED: XANAX ONE (08:42)
[2018-10-25] MEDS: NORCO 5/325 PO PRN ×2 (08:47→17:43)
[2018-10-25] MEDS: ZOFRAN IV PRN ×3 (08:48→22:36)
--- NOTE | 2018-10-25 08:48 | Vascular Lab Report ---
FINAL REPORT EXAM: VL VENOUS DUPLEX LE BILAT HISTORY: dypsnea TECHNIQUE: Grayscale, color and spectral Doppler ultrasound evaluation of both lower extremities for DVT PRIORS: None. FINDINGS: Respiratory variation , compressibility and response to augmentation within the deep veins of the rig ht lower extremity are within normal limits. Respiratory variation, compressibility and response to augmentation in the deep veins of the left low er extremity above the knee are also within normal limits. Imaged portions of the peroneal and posterior tibial veins also appear patent in both lower extremiti es. IMPRESSION: No sonographic evidence of deep vein thrombosis within the imaged portion of either lower extremity.
--- NOTE | 2018-10-25 09:34 | Progress Note ---
Assessment and Plan Hypoxia Acute asthma exacerbation h/o Endotracheal intubations for asthma Anxiety -Wean off supplemental oxygen for O2 sats>92% -Continue bronchodilators while monitoring for tachycardia -Nebulized corticosteroids -Montelukast( LTRA) -Steroids, start taper in the morning -SCDs for VTE prophylaxis, Increase activity -Continue in patient care -Anxiety management per primary service Subjective Date of service: 10/25/18 Principal diagnosis: asthma exacerbation, IUP at 33w3d Interval history: Follow up : Acute hypoxia, AE-Asthma Seen and examined. Vitals, labs, medications, chart, imaging reviewed. On going need for supplemental oxygen, still has some "congestion and wheezing" Feels anxious. Denies any chest pain, no nausea or vomiting. No fevers or chills Objective Vital Signs - 12hr 10/25/18 10/25/18 10/25/18 00:00 00:02 02:55 Temperature 98.2 F 98.4 F Pulse Rate 95 H Respiratory 18 18 Rate Blood Pressure 119/69 O2 Sat by Pulse Oximetry 10/25/18 10/25/18 02:56 08:17 Temperature Pulse Rate 86 69 Respiratory Rate Blood Pressure 124/61 149/81 O2 Sat by Pulse 95 Oximetry Constitutional: no acute distress, alert, other Eyes: non-icteric ENT: oropharynx moist Neck: supple, no lymphadenopathy, no JVD Ascultation: Bilateral: diminished breath sounds, wheezes (long expiratory phase) Cardiovascular: regular rate and rhythm, other (S1,S2, no murmurs, gallops or ru bs) Gastrointestinal: normoactive bowel sounds, soft, non-tender, other (gravid uterus) Integumentary: normal Extremities: no cyanosis, no edema, pink and warm, pulses normal, no ischemia or petechiae Neurologic: normal mental status, non-focal exam, pupils equal and round, CN II- XII normal, motor strength normal and Psychiatric: anxious CBC and BMP: 10/19/18 22:15 10/21/18 16:17 ABG, PT/INR, D-dimer: ABG POC ABG pH 7.422 (7.35-7.45) 10/20/18 17:33 POC ABG pCO2 29.7 (35-45) L 10/20/18 17:33 POC ABG pO2 147 (80-105) H 10/20/18 17:33 POC ABG HCO3 19.4 10/20/18 17:33 POC ABG Total CO2 20 10/20/18 17:33 POC ABG O2 Sat 99 10/20/18 17:33 PT/INR, D-dimer D-Dimer 850.67 ng/mlDDU (0-234) H 10/20/18 10:45 Abnormal lab findings: Abnormal Labs 10/19/18 10/19/18 10/19/18 22:15 22:15 22:15 RBC 3.16 L Hgb 9.6 L Hct 27.8 L MCHC 35 H Seg Neuts % (Manual) 86.0 H Lymphocytes % (Manual) 3.0 L Nucleated RBC % 2.0 H Seg Neutrophils # Man 9.5 H Lymphocytes # (Manual) 0.3 L D-Dimer POC ABG pH POC ABG pCO2 POC ABG pO2 Sodium 132 L Potassium 3.1 L Chloride 96.9 L Carbon Dioxide 20 L BUN 6 L Creatinine 0.6 L Calcium 8.2 L AST 46 H Alkaline Phosphatase 159 H Total Protein 5.8 L Albumin 3.2 L U Epithel Cells (Auto) 16.0 H 10/20/18 10/20/18 10/20/18 10:45 10:57 17:33 RBC Hgb Hct MCHC Seg Neuts % (Manual) Lymphocytes % (Manual) Nucleated RBC % Seg Neutrophils # Man Lymphocytes # (Manual) D-Dimer 850.67 H POC ABG pH 7.451 H POC ABG pCO2 25.8 L 29.7 L POC ABG pO2 65 L 147 H Sodium Potassium Chloride Carbon Dioxide BUN Creatinine Calcium AST Alkaline Phosphatase Total Protein Albumin U Epithel Cells (Auto) Chest x-ray: image reviewed
--- NOTE | 2018-10-25 10:02 | Nuclear Medicine Report ---
PERFUSION LUNG SCAN: History: Elevated d-dimer. Shortness of breath. After injection of Technetium 99m macroaggregated albumin gamma camera imaging of the lungs in multiple projections demonstrates normal pulmonary contours with a homogeneous distribution of activity. No focal areas of perfusion deficiency are identified. IMPRESSION: Normal study.
[2018-10-25] MEDS: XOPENEX IH SCH ×3 (10:48→20:49)
[2018-10-25] MEDS: PRENATAL VITAMIN PO SCH ×2 (11:21→18:55)
[2018-10-25] MEDS: PEPCID PO SCH ×2 (11:22→22:24)
--- NOTE | 2018-10-25 17:13 | Progress Note ---
Assessment and Plan Assessment and plan: Diagnoses Acute asthma exacerbation Acute respiratory failure Hypokalemia at 33 weeks Anxiety Plan Clinically improving and now off oxygen Steroids taper nebs Pulmonary input noted Replete potassium, repeat potassium was normal care per NEMATOLOGIST -Patient was given a few doses of Dilaudid for extreme anxiety, she has a grandmother was in hospice, and she is fighting with her baby shante. She is very anxious and taking shallow breaths, decided to give a narcotic instead of a benzodiazepine as the patient is already on [place]. And she was advised and warned the patient had both cross the placental barrier, she verbalized understanding. DVT prophylaxis per primary team History Interval history: I cant breathe History of present illness: 28 YO Female with Mild Intermittent Asthma at 33 weeks Gestation. pw fever, chills, sob and wheezing Past History Past Medical History: other (Asthma) Bilateral lower extremity duplex negative for PE Patient seen and examined today clinically improving, no new complaints Hospitalist Physical - Physical exam Narrative exam: General.: Appears well, no distress, nontoxic HEENT: Moist mucous membranes, extraocular muscles intact, no lymphadenopathy Neck: supple Cardiac: S1-S2 heard Lungs: diminished air entry, no wheezing abdomen: soft , nontender, gravid uterus, bowel sounds positive Extremities: no edema clubbing or cyanosis Skin: no rash or lesions Neurologic: no gross focal deficits Psych:No anxiety today, appropriate behavior, appropriate mood, corporative, judgment intact - Constitutional Vitals: Temp Pulse Resp BP Pulse Ox 98.4 F 100 H 16 125/71 98 10/25/18 02:55 10/25/18 16:42 10/25/18 11:12 10/25/18 16:42 10/25/18 16:41 General appearance: Present: mild distress Results - Labs CBC & Chem 7: 10/19/18 22:15 10/21/18 16:17 Labs: Laboratory Last Values WBC 11.0 K/mm3 (4.5-11.0) 10/19/18 22:15 RBC 3.16 M/mm3 (3.65-5.03) L 10/19/18 22:15 Hgb 9.6 gm/dl (10.1-14.3) L 10/19/18 22:15 Hct 27.8 % (30.3-42.9) L 10/19/18 22:15 MCV 88 fl (79-97) 10/19/18 22:15 MCH 30 pg (28-32) 10/19/18 22:15 MCHC 35 % (30-34) H 10/19/18 22:15 RDW 14.1 % (13.2-15.2) 10/19/18 22:15 Plt Count 229 K/mm3 (140-440) 10/19/18 22:15 Add Manual Diff Complete 10/19/18 22:15 Total Counted 100 10/19/18 22:15 Seg Neutrophils % Sr. Pricing Analyst 10/19/18 22:15 Seg Neuts % (Manual) 86.0 % (40.0-70.0) H 10/19/18 22:15 Band Neutrophils % 5.0 % 10/19/18 22:15 Lymphocytes % (Manual) 3.0 % (13.4-35.0) L 10/19/18 22:15 Reactive Lymphs % (Man) 0 % 10/19/18 22:15 Monocytes % (Manual) 6.0 % (0.0-7.3) 10/19/18 22:15 Eosinophils % (Manual) 0 % (0.0-4.3) 10/19/18 22:15 Basophils % (Manual) 0 % (0.0-1.8) 10/19/18 22:15 Metamyelocytes % 0 % 10/19/18 22:15 Myelocytes % 0 % 10/19/18 22:15 Promyelocytes % 0 % 10/19/18 22:15 Blast Cells % 0 % 10/19/18 22:15 Nucleated RBC % 2.0 % (0.0-0.9) H 10/19/18 22:15 Seg Neutrophils # Man 9.5 K/mm3 (1.8-7.7) H 10/19/18 22:15 Band Neutrophils # 0.6 K/mm3 10/19/18 22:15 Lymphocytes # (Manual) 0.3 K/mm3 (1.2-5.4) L 10/19/18 22:15 Abs React Lymphs (Man) 0.0 K/mm3 10/19/18 22:15 Monocytes # (Manual) 0.7 K/mm3 (0.0-0.8) 10/19/18 22:15 Eosinophils # (Manual) 0.0 K/mm3 (0.0-0.4) 10/19/18 22:15 Basophils # (Manual) 0.0 K/mm3 (0.0-0.1) 10/19/18 22:15 Metamyelocytes # 0.0 K/mm3 10/19/18 22:15 Myelocytes # 0.0 K/mm3 10/19/18 22:15 Promyelocytes # 0.0 K/mm3 10/19/18 22:15 Blast Cells # 0.0 K/mm3 10/19/18 22:15 WBC Morphology Not Reportable 10/19/18 22:15 Hypersegmented Neuts Not Reportable 10/19/18 22:15 Hyposegmented Neuts Not Reportable 10/19/18 22:15 Hypogranular Neuts Not Reportable 10/19/18 22:15 Smudge Cells Not Reportable 10/19/18 22:15 Toxic Granulation Not Reportable 10/19/18 22:15 Toxic Vacuolation Not Reportable 10/19/18 22:15 Dohle Bodies Not Reportable 10/19/18 22:15 Pelger-Huet Anomaly Not Reportable 10/19/18 22:15 Keely Rods Not Reportable 10/19/18 22:15 Platelet Estimate Appears normal 10/19/18 22:15 Clumped Platelets Not Reportable 10/19/18 22:15 Plt Clumps, EDTA Not Reportable 10/19/18 22:15 Large Platelets Not Reportable 10/19/18 22:15 Giant Platelets Not Reportable 10/19/18 22:15 Platelet Satelliting Not Reportable 10/19/18 22:15 Plt Morphology Comment Not Reportable 10/19/18 22:15 RBC Morphology Not Reportable 10/19/18 22:15 Dimorphic RBCs Not Reportable 10/19/18 22:15 Polychromasia Not Reportable 10/19/18 22:15 Hypochromasia Not Reportable 10/19/18 22:15 Poikilocytosis Not Reportable 10/19/18 22:15 Anisocytosis 1+ 10/19/18 22:15 Microcytosis Not Reportable 10/19/18 22:15 Macrocytosis Not Reportable 10/19/18 22:15 Spherocytes Not Reportable 10/19/18 22:15 Pappenheimer Bodies Not Reportable 10/19/18 22:15 Sickle Cells Not Reportable 10/19/18 22:15 Target Cells Not Reportable 10/19/18 22:15 Tear Drop Cells Not Reportable 10/19/18 22:15 Ovalocytes Not Reportable 10/19/18 22:15 Helmet Cells Not Reportable 10/19/18 22:15 Walker-Lloyd Bodies Not Reportable 10/19/18 22:15 [place] Rings Not Reportable 10/19/18 22:15 [place] Cells Not Reportable 10/19/18 22:15 Bite Cells Not Reportable 10/19/18 22:15 Crenated Cell Not Reportable 10/19/18 22:15 Elliptocytes Not Reportable 10/19/18 22:15 Acanthocytes (Spur) Not Reportable 10/19/18 22:15 Rouleaux Not Reportable 10/19/18 22:15 Hemoglobin C Crystals Not Reportable 10/19/18 22:15 Schistocytes Not Reportable 10/19/18 22:15 Malaria parasites Not Reportable 10/19/18 22:15 [place] Bodies Not Reportable 10/19/18 22:15 Hem Pathologist Commnt No 10/19/18 22:15 D-Dimer 850.67 ng/mlDDU (0-234) H 10/20/18 10:45 POC ABG pH 7.422 (7.35-7.45) 10/20/18 17:33 POC ABG pCO2 29.7 (35-45) L 10/20/18 17:33 POC ABG pO2 147 (80-105) H 10/20/18 17:33 POC ABG HCO3 19.4 10/20/18 17:33 POC ABG Total CO2 20 10/20/18 17:33 POC ABG O2 Sat 99 10/20/18 17:33 POC ABG Base Excess -5 10/20/18 17:33 FiO2 100 % 10/20/18 17:33 Sodium 132 mmol/L (137-145) L 10/19/18 22:15 Potassium 3.6 mmol/L (3.6-5.0) 10/21/18 16:17 Chloride 96.9 mmol/L (98-107) L 10/19/18 22:15 Carbon Dioxide 20 mmol/L (22-30) L 12/28/18 22:15 Anion Gap 18 mmol/L 10/19/18 22:15 BUN 6 mg/dL (7-17) L 10/19/18 22:15 Creatinine 0.6 mg/dL (0.7-1.2) L 10/19/18 22:15 Estimated GFR > 60 ml/min 10/19/18 22:15 BUN/Creatinine Ratio 10 % 10/19/18 22:15 Glucose 71 mg/dL (65-100) 10/19/18 22:15 Calcium 8.2 mg/dL (8.4-10.2) L 10/19/18 22:15 Magnesium 2.10 mg/dL (1.7-2.3) 10/21/18 16:17 Total Bilirubin 0.50 mg/dL (0.1-1.2) 10/19/18 22:15 AST 46 units/L (5-40) H 10/19/18 22:15 ALT 54 units/L (7-56) 10/19/18 22:15 Alkaline Phosphatase 159 units/L (35-129) H 10/19/18 22:15 Troponin T < 0.010 ng/mL (0.00-0.029) 10/20/18 10:45 Total Protein 5.8 g/dL (6.3-8.2) L 10/19/18 22:15 Albumin 3.2 g/dL (3.9-5) L 10/19/18 22:15 Albumin/Globulin Ratio 1.2 % 10/19/18 22:15 Urine Color [place] (Yellow) 10/19/18 22:15 Urine Turbidity Cloudy (Clear) 10/19/18 22:15 Urine pH 5.0 (5.0-7.0) 10/19/18 22:15 Ur Specific [place] 1.027 (1.003-1.030) 10/19/18 22:15 Urine Protein 100 mg/dl mg/dL (Negative) 10/19/18 22:15 Urine Glucose (UA) Neg mg/dL (Negative) 10/19/18 22:15 Urine Ketones Tr mg/dL (Negative) 10/19/18 22:15 Urine Blood Neg (Negative) 10/19/18 22:15 Urine Nitrite Neg (Negative) 10/19/18 22:15 Urine Bilirubin Neg (Negative) 10/19/18 22:15 Urine Urobilinogen 4.0 mg/dL (<2.0) 10/19/18 22:15 Ur Leukocyte Esterase Neg (Negative) 10/19/18 22:15 Urine WBC (Auto) 3.0 /HPF (0.0-6.0) 10/19/18 22:15 Urine RBC (Auto) 1.0 /HPF (0.0-6.0) 10/19/18 22:15 U Epithel Cells (Auto) 16.0 /HPF (0-13.0) H 10/19/18 22:15 Urine Bacteria (Auto) 1+ /HPF (Negative) 10/19/18 22:15 Urine Mucus 1+ /HPF 10/19/18 22:15 Influenza A (Rapid) Negative (Negative) 10/19/18 22:15 Influenza B (Rapid) Negative (Negative) 10/19/18 22:15 Blood Type A POSITIVE 10/20/18 13:47 Antibody Screen Negative 10/20/18 13:47
[2018-10-26] MEDS: CLEOCIN PO SCH ×3 (01:20→14:07)
[2018-10-26] MEDS: SOLU-Medrol IV SCH ×2 (06:25→14:05)
--- NOTE | 2018-10-26 08:49 | Progress Note ---
Assessment and Plan Hypoxia Acute asthma exacerbation Acute respiratory failure at 33 weeks Anxiety Plan -Steroid taper, slow over the next 2 weeks -Bronchodilators -Montelukast to be added to her therapy -SCDs for VTE prophylaxis, increase activity -Off supplemental oxygen and doing well Discussed with the patient and her OB at the bedside--patient can be discharged from a pulmonary standpoint. She needs a nebulizer machine, nebulized budesonide, LABA/ICS combination for discharge planning. -Asthma action plan discussed Outpatient pulmonary follow up post discharge, patient has been intubated in the past for asthma. Is currently poorly controlled Subjective Date of service: 10/26/18 Principal diagnosis: asthma exacerbation, IUP at 33w3d Interval history: Follow up : Acute hypoxia, AE-Asthma Seen and examined. Vitals, labs, medications, chart, imaging reviewed. Off supplemental oxygen, still has some "congestion and wheezing" but much better. Anxiety is improving.. Denies any chest pain, no nausea or vomiting. No fevers or chills Patient was seen with Dr. Cole Objective - Exam Narrative Exam: General.: Appears well, no distress, nontoxic HEENT: Moist mucous membranes, extraocular muscles intact, no lymphadenopathy Neck: supple Cardiac: S1-S2 heard Lungs: diminished air entry, wheeze on forced expiration abdomen: soft , non-tender, gravid uterus, bowel sounds positive Extremities: no edema clubbing or cyanosis Skin: no rash or lesions Neurologic: no gross focal deficits Psych:No anxiety today, appropriate behavior, appropriate mood, corporative, judgment intact Vital Signs - 12hr 10/25/18 10/25/18 10/26/18 20:50 20:54 01:24 Pulse Rate 78 Pulse Rate [ 88 Bilateral] Respiratory 18 Rate [Bilateral ] Blood Pressure 151/87 O2 Sat by Pulse 98 Oximetry 10/26/18 01:27 Pulse Rate 88 Pulse Rate [ Bilateral] Respiratory Rate [Bilateral ] Blood Pressure 125/80 O2 Sat by Pulse Oximetry Constitutional: no acute distress, alert Eyes: non-icteric ENT: oropharynx moist Neck: supple, no lymphadenopathy Effort: normal Ascultation: Bilateral: other (Good AE bilaterally, Long expiratory phase) Cardiovascular: regular rate and rhythm, other (S1,S2, no murmurs, gallops or rubs) Gastrointestinal: normoactive bowel sounds, soft, non-tender Integumentary: normal Extremities: no cyanosis, no edema Neurologic: normal mental status, non-focal exam, pupils equal and round, CN II- XII normal, motor strength normal and Psychiatric: mood appropriate, affect normal CBC and BMP: 10/19/18 22:15 10/21/18 16:17 ABG, PT/INR, D-dimer: ABG POC ABG pH 7.422 (7.35-7.45) 10/20/18 17:33 POC ABG pCO2 29.7 (35-45) L 10/20/18 17:33 POC ABG pO2 147 (80-105) H 10/20/18 17:33 POC ABG HCO3 19.4 10/20/18 17:33 POC ABG Total CO2 20 10/20/18 17:33 POC ABG O2 Sat 99 10/20/18 17:33 PT/INR, D-dimer D-Dimer 850.67 ng/mlDDU (0-234) H 10/20/18 10:45 Abnormal lab findings: Abnormal Labs 10/19/18 10/19/18 10/19/18 22:15 22:15 22:15 RBC 3.16 L Hgb 9.6 L Hct 27.8 L MCHC 35 H Seg Neuts % (Manual) 86.0 H Lymphocytes % (Manual) 3.0 L Nucleated RBC % 2.0 H Seg Neutrophils # Man 9.5 H Lymphocytes # (Manual) 0.3 L D-Dimer POC ABG pH POC ABG pCO2 POC ABG pO2 Sodium 132 L Potassium 3.1 L Chloride 96.9 L Carbon Dioxide 20 L BUN 6 L Creatinine 0.6 L Calcium 8.2 L AST 46 H Alkaline Phosphatase 159 H Total Protein 5.8 L Albumin 3.2 L U Epithel Cells (Auto) 16.0 H 10/20/18 10/20/18 10/20/18 10:45 10:57 17:33 RBC Hgb Hct MCHC Seg Neuts % (Manual) Lymphocytes % (Manual) Nucleated RBC % Seg Neutrophils # Man Lymphocytes # (Manual) D-Dimer 850.67 H POC ABG pH 7.451 H POC ABG pCO2 25.8 L 29.7 L POC ABG pO2 65 L 147 H Sodium Potassium Chloride Carbon Dioxide BUN Creatinine Calcium AST Alkaline Phosphatase Total Protein Albumin U Epithel Cells (Auto)
[2018-10-26] MEDS: NORCO 5/325 PO PRN ×2 (09:05→16:10)
[2018-10-26] MEDS: ZOFRAN IV PRN ×2 (09:08→13:58)
--- NOTE | 2018-10-26 09:11 | Progress Note ---
Assessment and Plan A: IUP at 34w0d Acute asthma exacerbation with status asthmaticus this admission and ICU stay during this admission, much improved clinically GERD Nausea/vomiting/abdominal pain s/p GI consult outpatient H/o delivery at 36 wks P: Pt discussed with Labelling Machine Operator bi consultant. Pt to be discharged with nebulizer treatments and close follow up. Case management to assist with obtaining a nebulizer Precautions reviewed. Subjective - Subjective Date of service: 10/26/18 Principal diagnosis: asthma exacerbation, IUP at 33w3d Interval history: Pt reports that her breathing is much improved and back to her baseline. She is anxious to go home today. She is still grieving the ofher grandmother who was recently sent to hospice. Patient reports: movement normal, no new complaints, no loss of fluid, no vaginal bleeding, no contractions Objective - Vital Signs Vital Signs: Vital Signs - 12hr 10/26/18 10/26/18 01:24 01:27 Pulse Rate 78 88 Blood Pressure 151/87 125/80 - Exam Breasts: deferred Lungs: Other (terminal expiratory wheezes ) Abdomen: Present: soft (gravid ) Uterus: Present: normal (gravid ) FHR: auscultation normal Uterine Contraction Monitor Mode: External Uterine Contraction Pattern: Absent Uterine Tone Measurement Phase: Resting Extremities: normal - Labs Labs: Abnormal Labs 10/19/18 10/19/18 10/19/18 22:15 22:15 22:15 RBC 3.16 L Hgb 9.6 L Hct 27.8 L MCHC 35 H Seg Neuts % (Manual) 86.0 H Lymphocytes % (Manual) 3.0 L Nucleated RBC % 2.0 H Seg Neutrophils # Man 9.5 H Lymphocytes # (Manual) 0.3 L D-Dimer POC ABG pH POC ABG pCO2 POC ABG pO2 Sodium 132 L Potassium 3.1 L Chloride 96.9 L Carbon Dioxide 20 L BUN 6 L Creatinine 0.6 L Calcium 8.2 L AST 46 H Alkaline Phosphatase 159 H Total Protein 5.8 L Albumin 3.2 L U Epithel Cells (Auto) 16.0 H 10/20/18 10/20/18 10/20/18 10:45 10:57 17:33 RBC Hgb Hct MCHC Seg Neuts % (Manual) Lymphocytes % (Manual) Nucleated RBC % Seg Neutrophils # Man Lymphocytes # (Manual) D-Dimer 850.67 H POC ABG pH 7.451 H POC ABG pCO2 25.8 L 29.7 L POC ABG pO2 65 L 147 H Sodium Potassium Chloride Carbon Dioxide BUN Creatinine Calcium AST Alkaline Phosphatase Total Protein Albumin U Epithel Cells (Auto)
[2018-10-26] MEDS: XOPENEX IH SCH ×2 (09:49→15:23)
[2018-10-26] MEDS: PRENATAL VITAMIN PO SCH (12:26)
[2018-10-26] MEDS: PEPCID PO SCH (12:27)
[2018-10-26 16:05] VITALS: BP 134/74
--- NOTE | 2018-10-26 16:41 | Discharge Summary ---
Providers - Providers Date of Admission: 10/20/18 09:34 Date of discharge: 10/26/18 Attending physician: ESTER UPTON MD 10/23/18 11:17 Consult to Physician [CONS] Routine Comment: Consulting Provider: CHANDRAKANT ANNA Physician Instructions: Reason For Exam: asthma exacerbation 10/26/18 09:05 Consult to Case Management [CONS] Stat Services Needed at Discharge: [employer] Notified:: social services manager Additional Physician Instructions: Pt needs nebulizer machine prior to discharge 10/20/18 11:15 Consult to Physician [CONS] Routine Comment: Consulting Provider: KATHERINE AGEE Physician Instructions: Reason For Exam: SOB, Fever, Bodyaches 10/20/18 21:07 Consult to Physician [CONS] Routine Comment: Consulting Provider: JACQUES LERMA Physician Instructions: Reason For Exam: gravid uterus Primary care physician: ESTER UPTON MD Hospitalization Reason for admission: other (acute asthma exacerbation ) Discharge diagnosis: other (Acute asthma exacerbation, IUP at 34 wks, Anxiety ) Hospital course: Pt was admitted at 33 wks with acute asthma exacerbation. She was diagnosed with status asthmaticus and transferred to the ICU under the care of hospitalists and pulmonologists until she was stabilized clinically. She was then observed on the antepartum service until she met discharge criteria. She was started on Symbicort, Advair and Nebulizer treatments. 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 Condition at discharge: Stable Disposition: - TO HOME OR SELFCARE - Discharge Diagnoses (1) Status: Acute Qualifiers: Weeks of gestation: 34 weeks Qualified Code(s): Z3A.34 - 34 weeks gestation of (2) Anxiety Status: Acute (3) Nausea and vomiting Status: Acute Qualifiers: Vomiting type: unspecified Vomiting Intractability: unspecified Qualified Code(s): R11.2 - Nausea with vomiting, unspecified (4) Acute asthma exacerbation Status: Acute Qualifiers: Asthma severity: moderate Asthma persistence: persistent Qualified Code(s): J45.41 - Moderate persistent asthma with (acute) exacerbation (5) Respiratory failure Status: Acute Qualifiers: Chronicity: acute Respiratory failure complication: hypoxia Qualified Code(s): J96.01 - Acute respiratory failure with hypoxia (6) Leukocytosis Status: Acute Qualifiers: Leukocytosis type: unspecified Qualified Code(s): D72.829 - Elevated white blood cell count, unspecified Comment: Most likely steroid induced (7) Tooth abscess Status: Acute Plan - Provider Discharge Summary Activity: routine Diet: routine Instructions: routine Additional instructions: [] Smoking cessation referral if applicable(refer to patient education folder for contact #) [] Refer to [facility] Booklet Call your doctor immediately for: * Fever > 100.5 * Heavy vaginal bleeding ( >1 pad per hour) * Severe persistent headache * Shortness of breath * Reddened, hot, painful area to leg or breast * Drainage or odor from incision. * Keep incision clean and dry at all times and follow doctor's instructions regarding bathing/showering Prescriptions have been called in to the pharmacy on file at the office. - Follow up plan Follow up: JANA KNAPP MD [Staff Physician] - 3 Days (Please call office for appt CATHI) CHANDRAKANT ANNA MD [Staff Physician] - 7 Days (Please call to schedule an appt and mention that you were seen in the hospital )
[2018-10-26] MEDS ORDERED: SINGULAIR PO SCH (22:00)
--- NOTE | 2018-10-31 20:00 | Consultation ---
PULMONARY CONSULTATION NOTE CONSULTING PHYSICIAN: Hugh Youssef MD REASON FOR CONSULTATION: Acute asthma exacerbation. CHIEF COMPLAINT AND HISTORY OF PRESENT ILLNESS: As follow, the patient is a 28-year-old -[place] female with a past medical history significant for asthma, who came into the Emergency Room complaining of fevers, chills, shortness of breath. She does have a history of asthma. She reported compliance with her medications at home. She denies running out of any medications. When asked about prior asthma symptoms in , she could not tell me a whole lot about them and stated that this was the worst attack she had had. In the emergency room, she was evaluated and diagnosed with an asthma exacerbation. She had denied chest pains, palpitations. She denied any unilateral or bilateral lower extremity swelling. Denied recent long distance travel. As mentioned, she is reportedly . Again after evaluation, she was admitted to the medical floor. We are asked to assist with management. When I stopped by to see her, she was resting peacefully in bed, feeling a little bit better. She is actually eating her lunch. She was on some supplemental oxygen. She denied any gross or streaky hemoptysis. She denies any history of venous thromboembolic phenomenon in the past. She denies any history of prior single or multiple miscarriages. This really is as much of the history of presentation as I have. Of note, she is a 3, para 1 set at 33 weeks of gestation. I should also mention a rapid influenza skin testing was negative. With regards to her fevers and chills, she had mentioned that she has been experiencing trouble with dental abscess and has been treated recently with clindamycin for the dental abscess. PAST MEDICAL HISTORY: Significant for the diagnosis of asthma, dental abscess and being . PAST SURGICAL HISTORY: None. MEDICATIONS: She was on at the time I stopped by to see were reviewed. Pertinent medications included the following: She was on Tylenol 650 mg p.o. q. 4 hours p.r.n. mild pain or fevers, p.r.n. Percocet 5/325 two tablets q. 6 hours p.r.n. moderate pain, albuterol nebulizer treatments 2.5 mg q. 4 hours scheduled. She was on clindamycin 300 mg p.o. t.i.d., docusate sodium 100 mg p.o. q. 12 hours p.r.n. constipation, Pepcid 20 mg IV b.i.d. was scheduled. She had received some potassium chloride replacement. Solu-Medrol 125 mg IV q.12 hours. Her multivitamins 1 tablet daily. Reglan 10 mg IV q. 6 hours p.r.n. nausea and vomiting. ALLERGIES: No known drug allergies. DIET: Well-built lady. She has gained weight appropriately during . Denies any significant weight loss or gain preceding few weeks to months otherwise. FAMILY AND SOCIAL HISTORY: Lives in the community. Denies alcohol, tobacco, or illicit drug use or abuse. FAMILY HISTORY: Noncontributory. REVIEW OF SYSTEMS: No loss of consciousness. No new onset seizures. No new onset focal weakness. Denies gross hematochezia or melena. Denies gross hematuria or dysuria. Denies any chest pains. No palpitations. Denies hemoptysis. No nausea or vomiting. Denies polydipsia or polyuria. Denies heat or cold intolerance. Complete 13-system review of systems obtained. Pertinent positives and/or negatives as body of history above, otherwise they are noncontributory. PHYSICAL EXAMINATION: VITAL SIGNS: On initial presentation, she had a fever of 102.3 degrees Fahrenheit, pulse was 127, respiratory rate, I have recorded was 18, blood pressure at presentation 102/50, O2 sats at that time 97%, inspired oxygen concentration was not recorded. When I stopped by to see her, she was on 2 liters nasal cannula with 98% O2 sats. GENERAL: Well-built, -Palestinian female, normocephalic, atraumatic, talking to me with mildly increased respiratory effort at rest. HEAD, EYES, EARS, NOSE, AND THROAT: She has anicteric, no conjunctival erythema. No gross jugular venous distention, no thyromegaly. Oropharynx is a Mallampati #2 oropharynx. Oropharynx is moist. Grossly, no palpable lymph nodes in the supraclavicular or submandibular lymph node chains. LUNGS: Auscultation of both lung oakes significant for bilateral expiratory wheezing. No rales. No accessory muscle use. Mildly labored effort. HEART: Heart sounds 1 and 2 are heard. They were regular in rate and rhythm at the time of my evaluation. No rubs or murmurs. ABDOMEN: Soft, full, distended appropriately for her . Bowel sounds are positive, nontender. No palpable hepatosplenomegaly. EXTREMITIES: Without overt digital clubbing or cyanosis and no significant pedal edema. Dorsalis pedis pulses are palpable bilaterally. NEUROLOGIC: Pupils are equal, round, about 4 mm, reactive to light. Extraocular muscle movements were intact. She moved all 4 extremities spontaneously. The skin was of normal turgor without overt cellulitis or rash. LABORATORY DATA: From my review are as follows: Admission white cell count 11,000, hemoglobin 9.6, hematocrit 27.8 and platelet count 229. No significant band forms. She did have a left shift, 86% neutrophils. D-dimer was elevated 851 essentially. Arterial blood gas showed a pH of 7.45, pCO2 of 26, pO2 of 65 that was on room air. Serum sodium was 132, potassium 3.1, chloride 97, bicarbonate 20, BUN 6, creatinine 0.6, glucose was 71. AST was up at 46, alkaline phosphatase 159. Albumin was low at 3.2, otherwise liver function tests essentially within normal limits. Urinalysis was negative for nitrites and leukocyte esterase. Only 3 white cells per high power field. Rapid influenza screen was negative. No blood cultures were done. A chest x-ray was done at admission. I have reviewed the chest x-ray. I have also reviewed the radiologist's interpretation, no acute process, but some flattening of the right hemidiaphragm, especially in the gravid uterus suggests hyperinflation. Bilateral lower extremity Dopplers were done, no evidence of DVT or SVT. ASSESSMENT AND PLAN: 1. Acute hypoxemic respiratory failure. 2. Acute asthma exacerbation. 3. state with a gravid 33 weeks uterus. 4. Anemia that is normocytic. 5. Elevated D-dimer. 6. Respiratory alkalosis at presentation. 7. Mild hyponatremia presentation. 8. Hypokalemia. 9. Elevated serum transaminases. PLAN: We will continue on systemic steroids. I will, however, begin a taper at this point. We will also consider inhaled albuterol treatments. She is already beginning to feel better and I do not think that we should push the treatment any further than that. I will complete the venous thromboembolic disorder workup in light of the elevated D-dimers and a respiratory alkalosis, which although not uncommon in a state. In light of her hypoxemia, I do feel we need to complete a venous thromboembolic disorder workup. A consideration will be given for a nuclear medicine V/Q scanning. Otherwise, we will continue ancillary care. Oxygen will be weaned to keep sats greater than or equal to about 90%. I have encouraged deep breathing techniques to see if some of the hypoxemia was not simply related to atelectasis at presentation. She is appropriately on GI prophylaxis. DVT prophylaxis in the form of SCDs. Flu and pneumonia vaccination will be addressed per protocol. Thank you very much for the consult. We will follow along and make further recommendations as picture progresses/becomes clearer. We will continue to watch her in the Intermediate Care Unit for now. JOB# [id number] JEZ/RAJESH
== END 2018-10-26 18:50 | disposition home or self-care (01) | DRG 781 ==
LOC: TRG 20:46 → LD 10-20 04:25 → TRG 10-20 04:26 → LD 10-20 04:27 → OBSVTOIN 10-20 09:34 → IMCU 10-20 20:37 → LD 10-24 12:13
PROVIDERS: ADMIT Obstetrics & Gynecology; ATTEND Obstetrics & Gynecology
PROC: 4A033R1 Measurement of Arterial Saturation, Peripheral, Percutaneous Approach (ICD-10-PCS; principal; 2018-10-20)
DX: O99.513 Diseases of the respiratory system complicating pregnancy, third trimester (principal); O99.283 Endocrine, nutritional and metabolic diseases complicating pregnancy, third trimester; O98.913 Unspecified maternal infectious and parasitic disease complicating pregnancy, third trimester; O99.343 Other mental disorders complicating pregnancy, third trimester; O99.613 Diseases of the digestive system complicating pregnancy, third trimester; O21.9 Vomiting of pregnancy, unspecified; F41.9 Anxiety disorder, unspecified; J45.42 Moderate persistent asthma with status asthmaticus; K92.9 Disease of digestive system, unspecified; J96.01 Acute respiratory failure with hypoxia; E87.6 Hypokalemia; K04.7 Periapical abscess without sinus; Z3A.33 33 weeks gestation of pregnancy
CPT/HCPCS: 36415; 36600; 71045; 78580; 80053; 81001; 82803; 83735; 84132; 84484; 85007; 85025; 85379; 86850; 86900; 86901; 87400; 93005; 93010; 93970; 94640; 94760; G0378; A9540; J1170; J2405; J2765; J2920; J2930; J3475; J3480; J7030; J7120; J7121

== ENCOUNTER 2018-11-26 08:55 | Inpatient (IN) | payer MEDICAID ==
[2018-11-26] MEDS ORDERED: NARCAN 0.4 MG/1 ML IV PRN (11:17)
[2018-11-26] MEDS ORDERED: XYLOCAINE 2% INFILTRATI ONE (11:17)
[2018-11-26] MEDS ORDERED: BRETHINE SUB-Q PRN (11:17)
[2018-11-26] MEDS ORDERED: SUBLIMAZE IV PRN (11:17)
[2018-11-26] MEDS ORDERED: BRETHINE IVP PRN (11:17)
[2018-11-26] MEDS ORDERED: PHENERGAN PO PRN (11:17)
[2018-11-26] MEDS ORDERED: STADOL IV PRN (11:17)
[2018-11-26] MEDS ORDERED: AMPICILLIN/NS 2 GM/100 ML 2 GM/100 ML BAG IV ONE (11:17)
--- NOTE | 2018-11-26 11:52 | History and Physical Report ---
History of Present Illness Date of examination: 11/26/18 Date of admission: 11/26/18 08:55 Chief complaint: IOL History of present illness: 28y/o @ 38+3 weeks presents for induction of labor for IUGR. Patient is a transfer of care to [facility] at 15 weeks. She has a history of a prior delivery. Per recommendation of [facility] for IOL. Past History Past Medical History: asthma - Obstetrical History Expected Date of Delivery: 12/07/18 Actual Gestation: 38 Week(s) 3 Day(s) : 3 Medications and Allergies Allergies Allergy/AdvReac Type Severity Reaction Status Date / Time No Known Allergies Allergy Verified 02/13/18 08:19 Home Medications Medication Instructions Recorded Confirmed Last Taken Type Doxylamine Succinate/Vit B6 1 tab PO PRN 07/31/18 10/24/18 2 Days Ago History [Celestinos Dr 10-10 mg Tablet] ~07/29/18 Promethazine 1 tab PO PRN PRN 07/31/18 10/24/18 2 Days Ago History ~07/29/18 HYDROcodone/APAP 5-325 [[place]ochise 1 each PO Q6HR PRN #5 tablet 08/01/18 10/24/18 10/18/18 10:00 Rx 5/325] Ondansetron (Nf) [Zofran TAB] 8 mg PO Q8HR PRN #30 tablet 10/07/18 10/24/18 10/18/18 10:00 Rx Acetaminophen/Codeine [Tylenol 1 tab PO Q6H PRN #12 tab 10/16/18 10/24/18 04/02/18 10:00 Rx /Codeine # 3 tab] Clindamycin [Clindamycin CAP] 300 mg PO Q8H 10 Days #30 cap 10/16/18 10/24/18 09/28/18 10:00 Rx Ondansetron [Zofran ODT TAB] 8 mg PO Q12HR PRN 10/24/18 10/24/18 10/18/18 10:00 History Active Meds: Active Medications Butorphanol Tartrate (Stadol) 1 mg IV Q2H PRN PRN Reason: Pain, Moderate (4-6) Ephedrine Sulfate (Ephedrine Sulfate) 10 mg IV Q2M PRN PRN Reason: Hypotension Fentanyl (Sublimaze) 100 mcg IV Q2H PRN PRN Reason: Labor Pain Ampicillin Sodium (Polycillin/Ns 2 Gm/100 Ml) 2 gm in 100 mls @ 100 mls/hr IV ONCE ONE; Protocol Stop: 11/26/18 12:16 Lactated Ringer's (Lactated Ringers) 1,000 mls @ 125 mls/hr IV DIRECT ELIZ Oxytocin/Sodium Chloride (Pitocin/Ns 20 Unit/1000ml Drip) 20 units in 1,000 mls @ 125 mls/hr IV DIRECT ELIZ Oxytocin/Sodium Chloride (Pitocin/Ns 30 Unit/500ml) 30 units in 500 mls @ 1 mls/hr IV TITR ELIZ; Protocol Oxytocin/Sodium Chloride (Pitocin/Ns 30 Unit/500ml) 30 units in 500 mls @ 4 mls/hr IV TITR ELIZ; Protocol Mineral Oil (Mineral Oil) 30 ml PO QHS PRN PRN Reason: Constipation Naloxone HCl (Narcan 0.4 Mg/1 Ml) 0.1 mg IV Q2MIN PRN PRN Reason: Res Rate </= 8 or 02 SAT < 92% Ondansetron HCl (Zofran) 4 mg IV Q8H PRN PRN Reason: Nausea And Vomiting Promethazine HCl (Phenergan) 25 mg PO Q6H PRN PRN Reason: Nausea And Vomiting Terbutaline Sulfate (Brethine) 0.25 mg SUB-Q ONCE PRN PRN Reason: Hyperstimulation/Hypertonicity Terbutaline Sulfate (Brethine) 0.25 mg IVP ONCE PRN PRN Reason: Hyperstimulation/Hypertonicity Review of Systems All systems: negative Genitourinary: no vaginal bleeding, no leakage of fluid - Vital Signs Vital signs: Vital Signs Pulse BP 96 H 127/74 11/26/18 09:53 11/26/18 09:53 Temp Pulse Resp BP Pulse Ox 97.6 F 96 H 18 127/74 11/26/18 10:43 11/26/18 09:53 11/26/18 10:43 11/26/18 09:53 - Physical Exam Breasts: Positive: deferred Cardiovascular: Regular rate Lungs: Positive: Clear to auscultation Abdomen: Positive: normal appearance Results All other labs normal. Assessment and Plan - Patient Problems (1) IUGR (intrauterine growth restriction) Current Visit: Yes Status: Acute Plan to address problem: admit for IOL
[2018-11-26] MEDS: LACTATED RINGERS 1,000 ML IV SCH ×2 (11:55→20:04)
[2018-11-26] MEDS ORDERED: CYTOTEC VG ONE (11:57)
[2018-11-26] MEDS ORDERED: PITOCin/NS 20 UNIT/1000ML DRIP 20 UNITS/1,000 ML BAG IV SCH (12:00)
[2018-11-26] MEDS ORDERED: PITOCin/NS 30 UNIT/500ML 30 UNITS/500 ML BAG IV SCH ×2 (12:00)
[2018-11-26 12:23] LABS: Basophils % (Auto) 0.3 % (0.0-1.8); Eosinophils % (Auto) 0.5 % (0.0-4.3); Hemoglobin 9.4 gm/dl (10.1-14.3); Lymphocytes # (Auto) 1.6 K/mm3 (1.2-5.4); Lymphocytes % (Auto) 14.7 % (13.4-35.0); Mean Corpuscular HGB Conc 31 % (30-34); Mean Corpuscular Volume 87 fl (79-97); Monocytes # (Auto) 0.6 K/mm3 (0.0-0.8); Monocytes % (Auto) 5.8 % (0.0-7.3); Platelet Count 233 K/mm3 (140-440); Red Blood Count 3.47 M/mm3 (3.65-5.03); Red Cell Distribution Width 16.7 % (13.2-15.2)
[2018-11-26] MEDS: ZOFRAN IV PRN (13:24)
[2018-11-26] MEDS ORDERED: NARCAN 2 MG/2 ML IV PRN (16:58)
[2018-11-26] MEDS ORDERED: fentaNYL-BUPIV 2 MCG/ML-0.125% 200 MCG/100 ML BAG EPIDURAL SCH (17:00)
--- NOTE | 2018-11-26 17:00 | Anesthesia Consultation ---
Anesthesia Consult and Med Hx - Airway Anesthetic Teeth Evaluation: Good ROM Head & Neck: Adequate Mental/Hyoid Distance: Adequate Mallampati Class: Class I Intubation Access Assessment: Good - Pulmonary Exam CTA: Yes - Cardiac Exam Cardiac Exam: RRR - Pre-Operative Health Status ASA Pre-Surgery Classification: ASA2 Proposed Anesthetic Plan: Epidural - Pulmonary Hx Smoking: No Hx Asthma: Yes (inhaler 10/16/18) COPD: No Hx Pneumonia: No Hx Sleep Apnea: No - Cardiovascular System Hx Hypertension: No - Central Nervous System Hx Seizures: No Hx Psychiatric Problems: No - Endocrine Hx Renal Disease: No Hx End Stage Renal Disease: No Hx Hypothyroidism: No Hx Hyperthyroidism: No - Hematic Hx Anemia: No Hx Sickle Cell Disease: No - Other Systems Hx Alcohol Use: No
--- NOTE | 2018-11-26 17:01 | Anesthesia Day of Surgery ---
Anesthesia Day of Surgery - Day of Surgery Patient Examined: Yes Patient H&P Reviewed: Yes Patient is NPO: Yes Beta Blockers: No Cardiac Clearance: No Pulmonary Clearance: No Don's Test: N/A
[2018-11-26] MEDS ORDERED: MARCAINE 0.25% INFILTRATI ONE (17:04)
[2018-11-26] MEDS ORDERED: LIDOCAINE 1.5%/EPI 1:200,000 INFILTRATI ONE ×2 (17:04→22:46)
[2018-11-26] MEDS ORDERED: XYLOCAINE 2%/ EPI 1:200,000 INFILTRATI ONE (18:35)
[2018-11-26] MEDS ORDERED: BICITRA PO ONE (19:44)
[2018-11-26] MEDS ORDERED: MINERAL OIL PO PRN (22:00)
[2018-11-26] MEDS ORDERED: PEPCID IV SCH (22:00)
[2018-11-27] MEDS: ZOFRAN IV PRN (00:10)
[2018-11-27] MEDS ORDERED: TUCKS PAD TP PRN (01:49)
[2018-11-27] MEDS ORDERED: LANSINOH TP PRN (01:49)
[2018-11-27] MEDS ORDERED: TYLENOL PO PRN (01:49)
[2018-11-27] MEDS ORDERED: BENADRYL PO PRN (01:49)
[2018-11-27] MEDS ORDERED: DULCOLAX PR PRN (01:49)
[2018-11-27] MEDS ORDERED: MILK OF MAGNESIA PO PRN (01:49)
--- NOTE | 2018-11-27 01:49 | Procedure Note ---
OB Delivery Note - Delivery Date of Delivery: 11/27/18 Surgeon: JACQUES LERMA Estimated blood loss: 200cc - Vaginal Delivery presentation: vertex Delivery position: OA Intrapartum events: none Delivery induction: AROM Delivery augmentation: pitocin Delivery monitor: external FHT Route of delivery: Delivery placenta: spontaneous Delivery cord: nuchal cord, 3 umbilical vessels Episiotomy: none Delivery laceration: none Anesthesia: epidural Delivery comments: Patient progressed to C/C/+1 and pushed to deliver a liveborn female with apgars of 8/9 and weight of 6lbs 1oz. After delivery of the head, a nuchal cord was manually reduced. The shoulders delivered without difficulty. The infant was bulb suctioned. The cord clamped and cut and placed on the patient's chest. The placenta delivered spontaneously intact with a 3VC. No lacerations were noted. EBL 200ml. - A at 1 minute: 8 at 5 minutes: 9 Gender: Female (weight 6lbs 1oz)
[2018-11-27] MEDS ORDERED: SODIUM CHLORIDE FLUSH SYRINGE 10 ML IV PRN (02:00)
[2018-11-27] MEDS: NORCO 5/325 PO PRN ×3 (03:36→21:50)
[2018-11-27] MEDS: PHENERGAN PO PRN ×3 (03:40→21:49)
[2018-11-27] MEDS: IBUPROFEN PO SCH ×3 (08:52→21:47)
--- NOTE | 2018-11-27 13:34 | Progress Note ---
Assessment and Plan - Patient Problems (1) IUGR (intrauterine growth restriction) Current Visit: Yes Status: Acute Plan to address problem: routine care Subjective - Subjective Date of service: 11/27/18 Interval history: Patient reports feeling better. Denies any respiratory issues. Lochia decreasing Patient reports: appetite normal, voiding normally, pain well controlled [place]: doing well Objective - Vital Signs Latest vital signs: Vital Signs Temp Pulse Resp BP BP Pulse Ox 11/27/18 12:13 98.2 F 82 20 102/57 97 11/27/18 11:00 20 11/27/18 08:52 20 11/27/18 08:12 98.0 F 77 16 107/59 95 11/27/18 03:15 98.2 F 72 18 132/66 98 11/27/18 02:45 98.7 F 20 11/27/18 02:44 71 134/60 11/27/18 02:28 73 130/78 11/27/18 02:13 67 126/72 11/27/18 02:01 77 123/80 11/27/18 01:45 98.8 F 20 11/27/18 01:44 78 132/92 11/27/18 01:40 81 143/113 11/27/18 01:35 109 H 100 11/27/18 01:32 99 H 137/99 11/27/18 01:30 88 100 11/27/18 01:25 75 100 11/27/18 01:20 85 99 11/27/18 01:17 86 128/71 11/27/18 01:15 83 100 11/27/18 01:10 85 100 11/27/18 01:05 82 100 11/27/18 01:03 77 112/76 11/27/18 01:00 82 99 11/27/18 00:55 72 100 11/27/18 00:50 94 H 99 11/27/18 00:46 101 H 116/77 11/27/18 00:45 101 H 99 11/27/18 00:40 88 99 11/27/18 00:35 80 99 11/27/18 00:33 82 113/74 11/27/18 00:31 100 H 94 11/27/18 00:30 87 100 11/27/18 00:25 74 99 11/27/18 00:20 84 99 11/27/18 00:18 95 H 107/56 11/27/18 00:15 97 H 100 11/27/18 00:10 77 100 11/27/18 00:05 98 H 99 11/27/18 00:02 88 111/67 11/27/18 00:00 91 H 100 11/26/18 23:55 82 100 11/26/18 23:50 86 100 11/26/18 23:45 91 H 105/62 99 11/26/18 23:44 90 104/59 11/26/18 23:42 106 H 90/52 11/26/18 23:40 109 H 91 11/26/18 23:39 92 H 104/63 11/26/18 23:38 58 L 113/57 92 11/26/18 23:35 88 98 11/26/18 23:34 71 107/56 11/26/18 23:31 98 H 108/58 11/26/18 23:30 95 H 100 11/26/18 23:29 88 110/62 11/26/18 23:27 95 H 111/59 11/26/18 23:26 97 H 120/57 11/26/18 23:25 96 H 99 11/26/18 23:24 92 H 104/73 11/26/18 23:20 84 99 11/26/18 23:19 96 H 110/62 11/26/18 23:18 97 H 116/66 11/26/18 23:16 78 120/65 11/26/18 23:15 80 100 11/26/18 23:13 94 H 97/80 11/26/18 23:12 93 H 116/69 11/26/18 23:10 99 H 100 11/26/18 23:09 90 130/75 11/26/18 23:07 83 131/73 11/26/18 23:05 93 H 129/71 100 11/26/18 23:04 87 125/88 11/26/18 23:01 82 131/79 11/26/18 23:00 95 H 100 11/26/18 22:59 91 H 129/87 11/26/18 22:58 91 H 152/85 11/26/18 22:56 94 H 143/90 11/26/18 22:54 106 H 98 11/26/18 22:49 97 H 100 11/26/18 22:44 93 H 100 11/26/18 22:39 90 100 11/26/18 22:38 72 81 L 11/26/18 22:35 99 H 134/93 11/26/18 22:34 96 H 98 11/26/18 22:29 72 100 11/26/18 22:24 82 100 11/26/18 22:19 79 100 11/26/18 22:14 86 100 11/26/18 22:09 88 99 11/26/18 22:04 88 100 11/26/18 22:03 76 124/78 11/26/18 22:01 88 122/80 11/26/18 21:59 76 129/75 100 11/26/18 21:57 89 122/72 11/26/18 21:55 78 137/77 11/26/18 21:54 77 100 11/26/18 21:53 88 123/77 11/26/18 21:51 78 127/77 11/26/18 21:49 89 124/78 100 11/26/18 21:47 81 125/77 11/26/18 21:45 82 120/79 11/26/18 21:44 81 100 11/26/18 21:43 87 137/82 11/26/18 21:41 90 125/82 11/26/18 21:39 87 132/80 100 11/26/18 21:37 88 131/79 11/26/18 21:35 86 137/78 11/26/18 21:34 83 100 11/26/18 21:33 91 H 129/76 11/26/18 21:31 83 136/77 11/26/18 21:29 87 127/75 100 11/26/18 21:27 83 122/72 11/26/18 21:25 80 126/74 11/26/18 21:24 85 99 11/26/18 21:23 83 134/76 11/26/18 21:21 81 127/76 11/26/18 21:19 83 137/76 98 11/26/18 21:17 84 131/78 11/26/18 21:15 88 135/86 11/26/18 21:14 92 H 98 11/26/18 21:13 83 125/64 11/26/18 21:11 90 122/72 11/26/18 21:09 92 H 129/68 98 11/26/18 21:07 100 H 143/74 11/26/18 21:05 88 142/76 11/26/18 21:04 89 97 11/26/18 21:01 92 H 132/75 11/26/18 21:00 98.5 F 20 11/26/18 20:59 72 146/87 98 11/26/18 20:58 88 143/76 11/26/18 20:55 75 128/79 11/26/18 20:54 70 98 11/26/18 20:53 76 121/74 11/26/18 20:49 81 99 11/26/18 20:44 70 100 11/26/18 20:39 70 99 11/26/18 20:34 72 99 11/26/18 20:31 71 128/85 11/26/18 20:29 79 99 11/26/18 20:24 76 99 11/26/18 20:19 80 99 11/26/18 20:14 64 100 11/26/18 20:09 88 99 11/26/18 20:04 66 99 11/26/18 20:00 76 111/72 11/26/18 19:59 81 100 11/26/18 19:58 69 111/68 11/26/18 19:57 60 115/67 11/26/18 19:54 67 113/65 100 11/26/18 19:52 68 112/59 11/26/18 19:51 63 119/59 11/26/18 19:49 70 132/76 100 11/26/18 19:47 75 118/62 11/26/18 19:44 82 124/68 100 11/26/18 19:42 75 124/66 11/26/18 19:40 73 122/60 11/26/18 19:39 73 123/65 100 11/26/18 19:37 78 145/65 11/26/18 19:34 87 106/59 11/26/18 19:33 82 103/55 100 11/26/18 19:31 77 118/61 11/26/18 19:29 79 100/60 11/26/18 19:27 71 111/77 100 11/26/18 19:25 90 106/58 11/26/18 19:22 70 105/58 100 11/26/18 19:20 81 109/64 11/26/18 19:19 65 112/70 92 11/26/18 19:17 72 100 11/26/18 19:15 95 H 114/63 11/26/18 19:12 90 107/66 100 11/26/18 19:11 83 104/64 94 11/26/18 19:09 79 148/74 11/26/18 19:07 78 100 11/26/18 19:06 55 L 121/62 11/26/18 19:04 81 121/73 11/26/18 19:02 72 115/68 99 11/26/18 19:00 68 118/72 11/26/18 18:58 74 112/70 11/26/18 18:57 71 100 11/26/18 18:56 70 115/72 11/26/18 18:55 77 120/77 11/26/18 18:53 84 116/62 92 11/26/18 18:51 72 120/73 100 11/26/18 18:48 78 125/71 11/26/18 18:46 85 122/70 100 11/26/18 18:44 84 119/67 11/26/18 18:42 83 123/76 11/26/18 18:41 74 100 11/26/18 18:40 71 122/75 11/26/18 18:39 80 123/76 11/26/18 18:37 77 123/72 94 11/26/18 18:36 86 100 11/26/18 18:35 76 112/59 11/26/18 18:32 73 131/71 11/26/18 18:31 75 133/61 99 11/26/18 18:29 233/144 11/26/18 18:26 82 98 11/26/18 18:23 77 92 11/26/18 18:21 107 H 98 11/26/18 18:19 103 H 133/82 11/26/18 18:17 101 H 146/88 11/26/18 18:16 90 100 11/26/18 18:13 88 120/68 11/26/18 18:11 90 115/62 100 11/26/18 18:07 93 H 137/76 11/26/18 18:06 51 L 93 11/26/18 18:05 90 145/67 11/26/18 18:01 88 128/63 11/26/18 17:59 90 115/69 11/26/18 17:56 84 128/77 11/26/18 17:55 75 127/66 11/26/18 17:52 79 131/82 11/26/18 17:51 82 130/77 11/26/18 17:49 88 125/63 11/26/18 17:47 92 H 127/70 11/26/18 17:44 83 120/74 11/26/18 17:42 85 126/80 11/26/18 17:40 81 121/75 11/26/18 17:38 77 120/62 11/26/18 17:37 76 118/68 11/26/18 17:35 81 130/72 11/26/18 17:33 90 143/74 11/26/18 17:31 83 130/72 11/26/18 17:28 120/81 11/26/18 17:26 90 126/82 11/26/18 17:25 90 89/51 11/26/18 17:23 85 135/66 11/26/18 17:21 89 133/62 11/26/18 17:19 86 132/72 11/26/18 17:17 90 132/77 11/26/18 17:14 90 126/72 11/26/18 17:12 91 H 129/76 11/26/18 17:11 86 134/79 11/26/18 17:09 74 107/68 11/26/18 17:07 91 H 129/77 11/26/18 17:04 86 124/59 11/26/18 16:52 83 135/67 11/26/18 16:23 73 129/78 11/26/18 14:05 83 119/80 11/26/18 13:49 75 120/62 11/26/18 13:34 81 117/73 Intake and Output 11/26/18 11/27/18 11/27/18 22:59 06:59 14:59 Intake Total 1001.333 480 Output Total 300 Balance 1001.333 -300 480 Intake: IV 1001.333 Lactated Ringers 1,000 ml 1000 @ 125 mls/hr IV DIRECT ELIZ Rx#:[id number] PITOCin/NS 30 UNIT/500ML 1.333 30 units In 500 ml @ 1 MILLIUNITS/MIN 1 mls/hr IV TITR ELIZ Rx#:[id number] Oral 480 Output: Urine 300 Void 300 Other: Total, Intake Amount 480 Total, Output Amount 300 # Voids Void 1 1 Estimated Blood Loss 200 - Exam Abdomen: Present: normal appearance, soft
--- NOTE | 2018-11-27 13:36 | Discharge Summary ---
Providers - Providers Date of Admission: 11/26/18 08:55 Date of discharge: 11/28/18 Attending physician: JACQUES LERMA Primary care physician: JACQUES LERMA Hospitalization Reason for admission: induction of labor Delivery: Discharge diagnosis: other (IUGR) baby: female Hospital course: Patient admitted for IOL for IUGR. Had a . uncomplicated Condition at discharge: Good Disposition: [id number] TO HOME OR SELFCARE - Discharge Diagnoses (1) IUGR (intrauterine growth restriction) Status: Acute Plan - Discharge Medications Prescriptions: HYDROcodone/ACETAMINOPHEN [Shock 5-325 Tablet] 1 each PO Q8H PRN #20 tablet PRN Reason: Pain, Mild (1-3) Ibuprofen [Motrin] 800 mg PO Q8HR PRN #60 tablet PRN Reason: Pain, Mild (1-3) - Provider Discharge Summary Activity: no sex for 6 weeks, no heavy lifting 4 weeks, no strenuous exercise Diet: routine Instructions: routine Additional instructions: [] Smoking cessation referral if applicable(refer to patient education folder for contact #) [] Refer to [facility] Booklet Call your doctor immediately for: * Fever > 100.5 * Heavy vaginal bleeding ( >1 pad per hour) * Severe persistent headache * Shortness of breath * Reddened, hot, painful area to leg or breast * schedule visit in 4 weeks - Follow up plan
[2018-11-27 13:42] LABS: Hematocrit 28.5 % (30.3-42.9)
[2018-11-28] MEDS: IBUPROFEN PO SCH ×2 (02:48→10:33)
[2018-11-28] MEDS: NORCO 5/325 PO PRN ×2 (02:50→10:32)
[2018-11-28 09:43] VITALS: BP 112/90
== END 2018-11-28 13:45 | disposition home or self-care (01) | DRG 775 ==
LOC: LD 08:55 → OB 11-27 02:55
PROVIDERS: ADMIT Obstetrics & Gynecology; ATTEND Obstetrics & Gynecology
PROC: 10E0XZZ Delivery of Products of Conception, External Approach (ICD-10-PCS; principal; 2018-11-27)
PROC: 10907ZC Drainage of Amniotic Fluid, Therapeutic from Products of Conception, Via Natural or Artificial Opening (ICD-10-PCS; 2018-11-27)
PROC: 3E0R3BZ Introduction of Anesthetic Agent into Spinal Canal, Percutaneous Approach (ICD-10-PCS; 2018-11-27)
PROC: 00HU33Z Insertion of Infusion Device into Spinal Canal, Percutaneous Approach (ICD-10-PCS; 2018-11-27)
DX: O36.5930 Maternal care for other known or suspected poor fetal growth, third trimester, not applicable or unspecified (principal); O99.52 Diseases of the respiratory system complicating childbirth; J45.909 Unspecified asthma, uncomplicated; O69.1XX0 Labor and delivery complicated by cord around neck, with compression, not applicable or unspecified; Z3A.38 38 weeks gestation of pregnancy; Z37.0 Single live birth; Z79.899 Other long term (current) drug therapy
CPT/HCPCS: 36415; 85014; 85018; 85025; 86592; 86850; 86900; 86901; 88307; G0378; J2405; J2590; J7120; Q0169